=== PATIENT | male | born 1945 | race Caucasian/White ===

== ENCOUNTER 2016-07-10 18:00 | Emergency (ER) | payer OTHER, MEDICARE, BC ==
[2016-07-10] MEDS ORDERED: Diphtheria,Pertussis(Acell),Tetanus Vaccine 0.5 ML SDV inactive IM ONE (18:38)
[2016-07-10] MEDS ORDERED: Amoxicillin/Clavulanate K 875-125 MG Tab PO ONE (18:38)
--- NOTE | 2016-07-10 18:53 | EDM.PDOC ---
ED HPI ANIMAL BITE - General Time Seen by Provider: 07/10/16 18:18 Chief Complaint: Bite:Animal, Insect Stated Complaint: DOG BITE TO RIGHT HAND Source of Information: Reports: Patient History Limitations: Reports: No limitations - History of Present Illness INITIAL COMMENTS - FREE TEXT/NARRATIVE: Patient is a 70-year-old male who presents to the ED complaining of a dog bite to the dorsal aspect of his right wrist. Patient states while walking through [place] a [place] bit him. Patient states this was unprovoked. The dog was on a leash with nitric acid concentrator operator present. Dogs nitric acid concentrator operator stated dog is up to date with vaccinations. Patient states dogs nitric acid concentrator operator left before getting appropriate information. Patient has minimal pain to right wrist. Small wound present. No puncture wounds present. Patient is not up to date with tetanus immunization. Onset of Symptoms: Reports: today, sudden Location: Reports: upper extremity, right Quality: Reports: Ache Severity: mild Place of Occurrence: other Context: Reports: unprovoked, approached animal Description of Animal: Reports: dog, well appearing, immunized (unknown) Associated Symptoms: no other symptoms Treatments PHYS THER: Reports: Other (see below) (none stated) Right Hand Pain Sore (Numeric/FACES): 3 - Related Data Allergies Allergy/AdvReac Type Severity Reaction Status Date / Time No Known Allergies Allergy Verified 09/13/13 17:13 Home Meds: Home Meds Cephalexin [Keflex] 500 mg PO Q6HR #40 capsule 09/13/13 [Rx] Amoxicillin/Clavulanate K [Augmentin 875 MG/125 MG] 1 tab PO Q12HR #14 tablet [Rx] Aspirin [Halfprin] 81 mg PO DAILY 07/10/16 [History] Clopidogrel [Plavix] 75 mg PO DAILY 07/10/16 [History] Cyanocobalamin (Vitamin B12) [Vitamin B12] 1,000 mcg PO DAILY 07/10/16 [History] Detemir 16 units INJECT BEDTIME 07/10/16 [History] HCTZ/Triamterene [Dyazide 25-37.5 MG] 1 tab PO DAILY 07/10/16 [History] Meloxicam [Mobic] 15 mg PO DAILY 07/10/16 [History] Pravastatin [Pravachol] 40 mg PO DAILY 07/10/16 [History] Zzmelatonin 1 mg PO BEDTIME 07/10/16 [History] amLODIPine [Norvasc] 10 mg PO DAILY 07/10/16 [History] traZODone 100 mg PO BEDTIME 07/10/16 [History] Social & Family History - Tobacco Use Years of Tobacco use: 55 - Alcohol Use Days Per Week of Alcohol Use: 0 - Recreational Drug Use Recreational Drug Use: No ED ROS GENERAL - Review of Systems Review Of Systems: See Below Musculoskeletal: Reports: other (wrist/hand abrasion (bite wound). mild swelling present. ) Neurological: Denies: Numbness, Tingling ED EXAM, ANIMAL BITE - Physical Exam Exam: See Below Exam Limited By: No limitations General Appearance: alert, WD/WN, no apparent distress Ears: hearing grossly normal Throat/Mouth: Normal voice, No airway compromise Neck: supple Respiratory/Chest: no respiratory distress, no accessory muscle use Cardiovascular: normal peripheral pulses, regular rate, rhythm Peripheral Pulses: 2+: radial (R) Extremities: other (Right wrist: Small superficial bite wound to the right dorsal aspect of the wrist with minimal swelling and pain. No bleeding present. No pain with flexion extension of the wrist. No sensory deficits noted distally.) Neurological: alert, oriented, CN II-XII intact, normal cognition, no motor/ sensory deficits Psychiatric: normal affect, normal mood Skin Exam: Normal color, Warm/dry Course - Vital Signs Last Recorded V/S: Last Vital Signs Temp 97.7 F 07/10/16 18:00 Pulse 70 07/10/16 18:00 Resp 20 07/10/16 18:00 BP 160/85 H 07/10/16 18:00 Pulse Ox 100 07/10/16 18:00 - Orders/Labs/Meds Orders: Active Orders 24 hr Category Date Time Status Vaccines to be Administered [RC] PER UNIT ROUTINE Care 07/10/16 18:39 Active Meds: Medications Discontinued Medications Generic Name Dose Route Start Last Admin Trade Name Willianq PRN Reason Stop Dose Admin Amoxicillin/Clavulanate Potassium 1 tab 07/10/16 18:38 07/10/16 18:49 Augmentin 875 Mg/125 Mg PO 07/10/16 18:39 1 tab ONETIME ONE Administration Diphtheria/Tetanus/Acell Pertussis 0.5 ml 07/10/16 18:38 07/10/16 18:50 Boostrix IM 07/10/16 18:39 0.5 ml .ONCE ONE Administration - Re-Assessments/Exams Free Text/Narrative Re-Assessment/Exam: Ordered augmentin and boostrix. 07/10/16 19:25 Patient was unable to obtain information on the vaccination status of the dog that bit him. He has elected to hold off on starting the rabies vaccinations. There is a low likelihood that this dog has rabies but status is indeterminate at this time. Patient states law enforcement and [employer] are looking through store surveillance records to see if they can obtain a license plate number and then determined who the nitric acid concentrator operator is and determine vaccination status of dog. They will be looking at this tomorrow. I instructed the patient to follow up with his PCP as soon as possible if rabies status cannot be determined. Patient understands and is well aware of this. He was provided basic information on rabies. Antibiotic prescription provided. Departure - Departure Time of Disposition: 19:29 Disposition: Home, Self-Care 01 Condition: good Clinical Impression: Dog bite of hand Qualifiers: Encounter type: initial encounter Laterality: right Qualified Code(s): S61.451A - Open bite of right hand, initial encounter Prescriptions: Amoxicillin/Clavulanate K [Augmentin 875 MG/125 MG] 1 tab PO Q12HR #14 tablet Instructions: Animal Bite, [id number] Referrals: Kishan Bullock MD [Primary Care Provider] - Forms: ED Department Discharge Additional Instructions: Cleanse site twice daily with soap and water Pat dry and reapply plan about equipment. Take the full course of antibiotic as prescribed. Utilize ibuprofen and Tylenol and alternate fashion for pain. Followup with your primary care provider or ER as soon as possible if you are unable to determine rabies vacination status. Return to the E.D. for increased swelling, redness, or purulent drainage. - My Orders Last 24 Hours: My Active Orders 07/10/16 18:39 Vaccines to be Administered [RC] PER UNIT ROUTINE - Assessment/Plan Last 24 Hours: My Active Orders 07/10/16 18:39 Vaccines to be Administered [RC] PER UNIT ROUTINE
[2016-07-10 19:18] VITALS: BP 160/85
== END 2016-07-10 20:00 | disposition home or self-care (01) ==
LOC: JD.ED 18:00
DX: S61.451A Open bite of right hand, initial encounter (principal); Z23 Encounter for immunization; Z79.899 Other long term (current) drug therapy; Z79.82 Long term (current) use of aspirin; W54.0XXA Bitten by dog, initial encounter
CPT/HCPCS: 90471; 99283; A9270; 90715

== ENCOUNTER 2016-07-23 17:44 | Emergency (ER) | payer OTHER, MEDICARE, BC ==
[2016-07-23 18:04] VITALS: BP 197/139
--- NOTE | 2016-07-23 18:13 | EDM.PDOC ---
<Leda Arora - Last Filed: 07/23/16 19:55> ED HPI Skin/Rash - General Chief Complaint: Bite:Animal, Insect Stated Complaint: RABIES SHOT Time Seen by Provider: 07/23/16 18:01 - Related Data Allergies Allergy/AdvReac Type Severity Reaction Status Date / Time No Known Allergies Allergy Verified 09/13/13 17:13 Home Meds: Ambulatory Orders Medication Instructions Recorded Confirmed Amoxicillin/Clavulanate K 1 tab PO Q12HR #14 tablet 07/10/16 07/23/16 [Augmentin 875 MG/125 MG] Aspirin [Halfprin] 81 mg PO DAILY 07/10/16 07/23/16 Clopidogrel [Plavix] 75 mg PO DAILY 07/10/16 07/23/16 Cyanocobalamin (Vitamin B12) 1,000 mcg PO DAILY 07/10/16 07/23/16 [Vitamin B12] Detemir 16 units INJECT BEDTIME 07/10/16 07/23/16 HCTZ/Triamterene [Dyazide 25-37.5 1 tab PO DAILY 07/10/16 07/23/16 MG] Meloxicam [Mobic] 15 mg PO DAILY 07/10/16 07/23/16 Pravastatin [Pravachol] 40 mg PO DAILY 07/10/16 07/23/16 Zzmelatonin 1 mg PO BEDTIME 07/10/16 07/23/16 amLODIPine [Norvasc] 10 mg PO DAILY 07/10/16 07/23/16 traZODone 100 mg PO BEDTIME 07/10/16 07/23/16 Course - Vital Signs Last Recorded V/S: Last Vital Signs Temp 36.7 C 07/23/16 18:03 Pulse 60 07/23/16 18:03 Resp 20 07/23/16 18:03 BP 197/139 H 07/23/16 18:03 Pulse Ox 98 07/23/16 18:03 - Orders/Labs/Meds Meds: Medications Discontinued Medications Generic Name Dose Route Start Last Admin Trade Name Freq PRN Reason Stop Dose Admin Rabies Immune Globulin 1,800 unit 07/23/16 18:15 07/23/16 19:15 Imogam Rabies-Ht IM 07/23/16 18:16 1,800 unit .ONCE ONE Administration Rabies Vaccine Human Diploid Cell 2.5 unit 07/23/16 18:21 07/23/16 18:42 Imovax Rabies IM 07/23/16 18:22 2.5 unit .ONCE ONE Administration - Re-Assessments/Exams Free Text/Narrative Re-Assessment/Exam: 07/23/16 19:55 The patient reported that is weight is significantly less without his clothes. Patient was stripped to his pants and his weight 178.2. With 20units/kg the patient is to get 1616 units. He was given this and tolerated this well. I checked the patient about 20 minutes after receiving the immunoglobin and he has had no adverse reactions. Will discharge home. Departure - Departure Disposition: Home, Self-Care 01 Clinical Impression: Contact with and suspected exposure to rabies Instructions: Animal Bite, [id number], Rabies Referrals: PCP,None [Ordering Only Provider] - Forms: ED Department Discharge Additional Instructions: Rabies vaccination and immunoglobulin were administered in the emergency room today as instructed to do so by public health Department after potential dog bite and exposure to rabies. You'll need to return to the hospital for outpatient injection of rabies vaccine IM one shot on July 26 july 30 and August 06 ie. 4 shots in total. The rabies immunoglobulin provide passive immunity immediately to the virus in the rabies vaccine allow her body to develop antibodies hopefully for many years against the rabies virus. SPECT soreness at the site similar to a tetanus shot. It's okay to use Motrin or Tylenol for pain relief if needed. <Billy Sagastume - Last Filed: 07/25/16 19:22> ED HPI Skin/Rash - General Source: Reports: Patient History Limitations: Reports: No limitations - History of Present Illness INITIAL COMMENTS - FREE TEXT/NARRATIVE: 70-year-old male reports that he was bitten by has an unknown dog on his right dorsal wrist on 10 July. He was seen in the ED where his wounds were cleansed and he did have active bleeding from a puncture wound dorsal aspect of his right wrist. Was a grade gained dog that bit him while he was walking down the [employer] store here in [place]. The great Gilbert was on a leash .Patient reports that he probably smells like turkey since he had just finished eating buffalo jerkey from [employer]. At any rate he asked the dog stereoplotter operator who is up- to-date on shots he said it wasn't a way they went. He is not able to trace the fellow that on the dog or find a job to confirm that the dog has had his rabies vaccination. He got a call from [facility] [employer] today indicating from the public health Department that he should seek rabies vaccination. Of note it is day 13 post bite. His tetanus and diphtheria and pertussis vaccine was updated when he was seen in the ED on 10 July. Patient's wounds have healed well. Symptom Onset Date: 07/10/16 Location, Skin: Reports: upper extremity, right (Right dorsal wrist.) Quality: Reports: Other (Wound is healed well.) Severity: mild Known Identified Source: yes (Dog bite) Place of Occurrence: other ([employer] store) Sick Contact: no Associated Symptoms: Reports: no other symptoms Similar Symptoms Previously: no Recent Medical Care: yes (Was seen in the ED same day of tongue bite.) Past Medical History HEENT History: Reports: Other (see below) Other HEENT History: eye surgery Cardiovascular History: Reports: High cholesterol, Hypertension, Stents - Past Surgical History HEENT Surgical History: Reports: Tonsillectomy GI Surgical History: Reports: Cholecystectomy Social & Family History - Tobacco Use Smoking Status *Q: Current Every Day Smoker Years of Tobacco use: 55 Packs/Tins Daily: 0.7 - Caffeine Use Caffeine Use: Reports: Coffee - Alcohol Use Days Per Week of Alcohol Use: 0 - Recreational Drug Use Recreational Drug Use: No - Living Situation & Occupation Living situation: Reports: Occupation: employed ED ROS GENERAL - Review of Systems Review Of Systems: See Below Constitutional: Denies: fever, chills, malaise, weakness, fatigue, decreased appetite, weight loss HEENT: Reports: No symptoms Respiratory: Reports: No Symptoms Cardiovascular: Reports: No symptoms Endocrine: Reports: no symptoms GI/Abdominal: Reports: No symptoms : Reports: no symptoms Musculoskeletal: Reports: no symptoms Skin: Reports: bruising ED EXAM, SKIN/RASH Exam: See Below Exam Limited By: No limitations General Appearance: alert, WD/WN, anxious, mild distress Extremities: other (Patient does have healing wounds dorsal aspect of his right wrist. No evidence of infection.) Course - Vital Signs Last Recorded V/S: Last Vital Signs Temp 36.7 C 07/23/16 18:03 Pulse 60 07/23/16 18:03 Resp 20 07/23/16 18:03 BP 197/139 H 07/23/16 18:03 Pulse Ox 98 07/23/16 18:03 - Orders/Labs/Meds Meds: Medications Discontinued Medications Generic Name Dose Route Start Last Admin Trade Name Juan Pablo PRN Reason Stop Dose Admin Rabies Immune Globulin 1,800 unit 07/23/16 18:15 07/23/16 19:15 Imogam Rabies-Ht IM 07/23/16 18:16 1,800 unit .ONCE ONE Administration Rabies Vaccine Human Diploid Cell 2.5 unit 07/23/16 18:21 07/23/16 18:42 Imovax Rabies IM 07/23/16 18:22 2.5 unit .ONCE ONE Administration - Radiology Interpretation Free Text/Narrative:: 70-year-old male presents the ED for rabies vaccination as requested by [facility]. He been calling them for some lengthy period of time and it was decided today he got phone call that he should seek vaccination because they were unable to locate the dog bit him to confirm whether or not it had had rabies vaccination. His gait 13 since he was bit. We'll therefore proceed with rate. Rabies immunoglobulin in the dosage of 1800 mg will be given. No more than 1.5 mils per injection site. Also received first rabies vaccination 2.5 units IM. He require further shots on days 3,7 and 14 starting today. He will return therefore as an outpatient on July 26 July 30 and August 06 for further rabies vaccine 2.5 units IM. Departure - Departure Time of Disposition: 19:30 Condition: good
[2016-07-23] MEDS ORDERED: Rabies Immune Globulin PF 150 Units/ML 2 ML SDV IM ONE (18:15)
[2016-07-23] MEDS ORDERED: Rabies Vaccine, Human Diploid Cell PF 2.5 Unit SDV IM ONE (18:21)
== END 2016-07-23 19:50 | disposition home or self-care (01) ==
LOC: JD.ED 17:44 → SUPCPDRO 17:44 → JD.ED 19:50
DX: Z20.3 Contact with and (suspected) exposure to rabies (principal); I10 Essential (primary) hypertension; E78.00 Pure hypercholesterolemia, unspecified; Z79.02 Long term (current) use of antithrombotics/antiplatelets; Z79.82 Long term (current) use of aspirin; Z79.899 Other long term (current) drug therapy; F17.210 Nicotine dependence, cigarettes, uncomplicated; Z90.49 Acquired absence of other specified parts of digestive tract; Z98.890 Other specified postprocedural states; Z23 Encounter for immunization
CPT/HCPCS: 90376; 90675; 96372; 99281; 99283-25

== ENCOUNTER 2020-03-15 15:01 | Inpatient (IN) | payer MEDICARE, OTHER ==
[2020-03-15] MEDS ORDERED: Sodium Chloride 0.9% 10 ML Syringe FLUSH PRN (15:26)
--- NOTE | 2020-03-15 15:53 | EDM.PDOC ---
ED HPI GENERAL MEDICAL PROBLEM - General Chief Complaint: Genitourinary Problem Stated Complaint: URINE ISSUES SENT FROM [facility] Time Seen by Provider: 03/15/20 15:05 Source of Information: Reports: Patient, RN Notes Reviewed History Limitations: Reports: No Limitations - History of Present Illness INITIAL COMMENTS - FREE TEXT/NARRATIVE: Patient is a 74-year-old male presenting to the emergency department after being sent here from the [place] [facility]. He was seen there today with complaints of frequency of urination and "dribbling ". He states for last few days, he has go to the bathroom every 15 minutes and will goes a very small amount. He has no pain or pressure associated with this. On triage, he was bladder scanned and found to have over 1300 mils of urine in his bladder. He did have blood work completed at [facility] which shows a glucose of 472, BUN of 47, creatinine of 3.1 as well as a potassium of 5.4. Urinalysis completed at the clinic does show he has a urinary tract infection. Patient states that he was recently taken off of his Levemir because he does not like needles. He is currently taking Farxiga and Nesina. He does not check his blood sugars at home. Denies any fever, chills, nausea, or vomiting. States he feels "really good ". Penis Pain Score (Numeric/FACES): 8 - Related Data Allergies Allergy/AdvReac Type Severity Reaction Status Date / Time shrimp Allergy Cannot Verified 03/15/20 15:17 Remember Home Meds: Home Meds Aspirin [Halfprin] 81 mg PO DAILY 07/10/16 [History] Clopidogrel [Plavix] 75 mg PO BEDTIME 07/10/16 [History] Pravastatin [Pravachol] 40 mg PO DAILY 07/10/16 [History] amLODIPine [Norvasc] 10 mg PO DAILY 07/10/16 [History] traZODone 100 mg PO BEDTIME 07/10/16 [History] Alogliptin Benzoate [Alogliptin] 25 mg PO DAILY 03/15/20 [History] Lisinopril/Hydrochlorothiazide [Lisinopril-Hctz 20-25 mg Tab] 1 each PO DAILY 03/15/20 [History] Metoprolol Succinate [Toprol XL 100mg] 50 mg PO DAILY 03/15/20 [History] Tamsulosin [Tamsulosin 24 Hr] 0.4 mg PO DAILY 03/15/20 [History] Past Medical History HEENT History: Reports: Other (See Below) Other HEENT History: eye surgery Cardiovascular History: Reports: High Cholesterol, Hypertension, Stents - Past Surgical History HEENT Surgical History: Reports: Tonsillectomy GI Surgical History: Reports: Cholecystectomy Social & Family History - Tobacco Use Tobacco Use Status *Q: Current Every Day Tobacco User Years of Tobacco use: 60 Packs/Tins Daily: 0.5 - Caffeine Use Caffeine Use: Reports: None - Recreational Drug Use Recreational Drug Use: No - Living Situation & Occupation Living situation: Reports: Occupation: Employed ED ROS GENERAL - Review of Systems Review Of Systems: See Below Constitutional: Reports: No Symptoms. Denies: Fever, Chills, Weakness, Fatigue ED EXAM, RENAL/ - Physical Exam Exam: See Below General Appearance: Alert, WD/WN, No Apparent Distress Respiratory/Chest: No Respiratory Distress, Lungs Clear, Normal Breath Sounds, No Accessory Muscle Use, Chest Non-Tender Cardiovascular: Normal Peripheral Pulses, Regular Rate, Rhythm, No Edema, No Gallop, No JVD, No Murmur, No Rub GI/Abdominal: Normal Bowel Sounds, Soft, Non-Tender, No Organomegaly, No Distention, No Abnormal Bruit, No Mass Neurological: Alert, Oriented, CN II-XII Intact, Normal Cognition, Normal Gait, Normal Reflexes, No Motor/Sensory Deficits Psychiatric: Normal Affect, Normal Mood Skin Exam: Warm, Dry, Intact, Normal Color, No Rash Course - Vital Signs Last Recorded V/S: Last Vital Signs Temp 98.8 F 03/19/20 08:32 Pulse 70 03/19/20 08:36 Resp 16 03/19/20 08:32 BP 147/97 H 03/19/20 08:36 Pulse Ox 96 03/19/20 08:32 - Orders/Labs/Meds Orders: Medication Orders Acetaminophen (Tylenol) 650 mg PO Q4H PRN PRN Reason: Pain (Mild 1-3)/fever Last Admin: 03/16/20 07:52 Dose: 650 mg Documented by: Admin: 03/16/20 02:27 Dose: 650 mg Documented by: AMARILYS Alogliptin Benzoate (Alogliptin) 12.5 mg PO DAILY [facility] Last Admin: 03/19/20 08:36 Dose: 12.5 mg Documented by: Admin: 03/18/20 08:25 Dose: 12.5 mg Documented by: LIZZ Amlodipine Besylate (Norvasc) 10 mg PO DAILY [facility] Last Admin: 03/19/20 08:36 Dose: 10 mg Documented by: Admin: 03/18/20 08:26 Dose: 10 mg Documented by: LIZZ Aspirin (Halfprin) 81 mg PO DAILY [facility] Last Admin: 03/19/20 08:36 Dose: 81 mg Documented by: Admin: 03/18/20 08:30 Dose: 81 mg Documented by: Admin: 03/17/20 09:05 Dose: 81 mg Documented by: Admin: 03/16/20 08:55 Dose: 81 mg Documented by: CHACORTA Clopidogrel Bisulfate (Plavix) 75 mg PO DAILY [facility] Admin: 03/19/20 08:36 Dose: 75 mg Documented by: Admin: 03/18/20 08:30 Dose: 75 mg Documented by: LIZZ Docusate Sodium (Colace) 100 mg PO BID PRN PRN Reason: Constipation Finasteride (Proscar) 5 mg PO BEDTIME [facility] Admin: 03/18/20 21:24 Dose: 5 mg Documented by: Admin: 03/17/20 21:05 Dose: 5 mg Documented by: Admin: 03/16/20 20:39 Dose: 5 mg Documented by: Admin: 03/15/20 21:20 Dose: 5 mg Documented by: AMARILYS Heparin Sodium (Porcine) (Heparin Sodium) 5,000 units SUBCUT Q8H [facility] Last Admin: 03/19/20 06:26 Dose: 5,000 units Documented by: Admin: 03/18/20 21:23 Dose: 5,000 units Documented by: Admin: 03/18/20 13:10 Dose: 5,000 units Documented by: Admin: 03/18/20 06:37 Dose: 5,000 units Documented by: Admin: 03/17/20 21:35 Dose: 5,000 units Documented by: Admin: 03/17/20 14:30 Dose: 5,000 units Documented by: Admin: 03/17/20 06:11 Dose: 5,000 units Documented by: Admin: 03/16/20 20:59 Dose: 5,000 units Documented by: Admin: 03/16/20 13:45 Dose: 5,000 units Documented by: Admin: 03/16/20 05:50 Dose: 5,000 units Documented by: Admin: 03/15/20 21:32 Dose: 5,000 units Documented by: AMARILYS Hydrochlorothiazide (Hydrochlorothiazide) 25 mg PO DAILY [facility] Last Admin: 03/19/20 08:35 Dose: 25 mg Documented by: Admin: 03/18/20 08:29 Dose: 25 mg Documented by: LIZZ Vancomycin HCl 1 gm/Vancomycin HCl 250 mg/ Sodium Chloride 250 mls @ 166.667 mls/hr IV Q24H [facility] Last Admin: 03/19/20 11:34 Dose: 166.667 mls/hr Documented by: JANES Insulin Glargine (Lantus) 15 unit SUBCUT BEDTIME [facility] Last Admin: 03/18/20 21:22 Dose: 15 unit Documented by: Admin: 03/17/20 21:06 Dose: 15 unit Documented by: TANYA Insulin Human Lispro (Humalog) 0 unit SUBCUT TIDAC [facility]; Protocol Last Admin: 03/19/20 06:26 Dose: Not Given Documented by: Admin: 03/18/20 17:22 Dose: Not Given Documented by: Admin: 03/18/20 11:58 Dose: 4 units Documented by: Admin: 03/18/20 08:24 Dose: 6 units Documented by: Admin: 03/17/20 17:46 Dose: 2 units Documented by: Admin: 03/17/20 11:44 Dose: 8 units Documented by: Admin: 03/17/20 09:06 Dose: 4 units Documented by: LIZZ Insulin Human Lispro (Humalog) 5 unit SUBCUT TIDAC [facility] Last Admin: 03/19/20 08:34 Dose: 5 units Documented by: Admin: 03/18/20 17:21 Dose: 5 units Documented by: Admin: 03/18/20 11:59 Dose: 5 units Documented by: Admin: 03/18/20 08:24 Dose: 5 units Documented by: Admin: 03/17/20 17:47 Dose: 5 units Documented by: LIZZ Lisinopril (Prinivil) 20 mg PO DAILY [facility] Last Admin: 03/19/20 08:35 Dose: 20 mg Documented by: Admin: 03/18/20 08:30 Dose: 20 mg Documented by: LIZZ Metoprolol Succinate (Toprol Xl) 50 mg PO DAILY [facility] Last Admin: 03/19/20 08:36 Dose: 50 mg Documented by: Admin: 03/18/20 08:29 Dose: 50 mg Documented by: LIZZ Miscellaneous Information (Remove Patch) 1 ea TRDERM DAILY [facility] Last Admin: 03/19/20 09:43 Dose: Not Given Documented by: Admin: 03/18/20 08:31 Dose: Not Given Documented by: Admin: 03/17/20 09:12 Dose: Not Given Documented by: Admin: 03/16/20 09:00 Dose: 1 ea Documented by: CHACORTA Nicotine (Habitrol) 21 mg TRDERM DAILY [facility] Last Admin: 03/19/20 08:37 Dose: Not Given Documented by: Admin: 03/18/20 08:31 Dose: Not Given Documented by: Admin: 03/17/20 09:10 Dose: Not Given Documented by: Admin: 03/16/20 09:00 Dose: Not Given Documented by: Admin: 03/15/20 21:37 Dose: 21 mg Documented by: AMARILYS Ondansetron HCl (Zofran Odt) 4 mg PO Q4H PRN PRN Reason: nausea, able to take PO Oxycodone HCl (Oxycodone) 5 mg PO Q4H PRN PRN Reason: Pain (moderate 4-6) Last Admin: 03/18/20 21:24 Dose: 5 mg Documented by: Admin: 03/18/20 17:32 Dose: 5 mg Documented by: Admin: 03/16/20 07:54 Dose: 5 mg Documented by: Admin: 03/16/20 02:26 Dose: 5 mg Documented by: Admin: 03/15/20 21:18 Dose: 5 mg Documented by: AMARILYS Simvastatin (Zocor) 20 mg PO DAILY [facility] Last Admin: 03/19/20 08:35 Dose: 20 mg Documented by: Admin: 03/18/20 08:30 Dose: 20 mg Documented by: LIZZ Sodium Chloride (Saline Flush) 10 ml FLUSH ASDIRECTED PRN PRN Reason: Keep Vein Open Last Admin: 03/15/20 16:40 Dose: 10 ml Documented by: ASHLEY Tamsulosin HCl (Flomax) 0.4 mg PO DAILY [facility] Last Admin: 03/19/20 08:36 Dose: 0.4 mg Documented by: Admin: 03/18/20 08:26 Dose: 0.4 mg Documented by: LIZZ Trazodone HCl (Trazodone) 100 mg PO BEDTIME [facility] Last Admin: 03/18/20 21:23 Dose: 100 mg Documented by: Admin: 03/17/20 21:06 Dose: 100 mg Documented by: TANYA Vancomycin HCl (Pharmacy To Dose - Vancomycin) 1 dose .XX ASDIRECTED PRN PRN Reason: RX TO DOSE VANCO Labs: Laboratory Tests 03/15/20 03/15/20 03/15/20 Range/Units 15:20 15:56 16:04 WBC 6.21 (4.23-9.07) K/mm3 RBC 3.91 L (4.63-6.08) M/mm3 Hgb 12.2 L (13.7-17.5) gm/dl Hct 36.4 L (40.1-51.0) % MCV 93.1 H (79.0-92.2) fl MCH 31.2 (25.7-32.2) pg MCHC 33.5 (32.2-35.5) g/dl RDW Std Deviation 43.6 (35.1-43.9) fL Plt Count 263 (163-337) K/mm3 MPV 10.1 (9.4-12.3) fl Neut % (Auto) 51.4 (34.0-67.9) % Lymph % (Auto) 26.1 (21.8-53.1) % Bowie % (Auto) 21.7 H (5.3-12.2) % Eos % (Auto) 0.2 L (0.8-7.0) Baso % (Auto) 0.3 (0.1-1.2) % Neut # (Auto) 3.19 (1.78-5.38) K/mm3 Lymph # (Auto) 1.62 (1.32-3.57) K/mm3 Bowie # (Auto) 1.35 H (0.30-0.82) K/mm3 Eos # (Auto) 0.01 L (0.04-0.54) K/mm3 Baso # (Auto) 0.02 (0.01-0.08) K/mm3 Manual Slide Review Abnormal smear Sodium (136-145) mEq/L Potassium (3.5-5.1) mEq/L Chloride (98-107) mEq/L Carbon Dioxide (21-32) mEq/L Anion Gap (5-15) BUN (7-18) mg/dL Creatinine (0.7-1.3) mg/dL Est Cr Clr Drug Dosing mL/min Estimated GFR (MDRD) (>60) mL/min BUN/Creatinine Ratio (14-18) Glucose (83-115) mg/dL POC Glucose (83-110) mg/dL Hemoglobin A1c (4.50-6.20) % Calcium (8.5-10.1) mg/dL Magnesium (1.8-2.4) mg/dl Total Bilirubin (0.2-1.0) mg/dL AST (15-37) U/L ALT (16-63) U/L Alkaline Phosphatase (46-116) U/L C-Reactive Protein (<1.0) mg/dL Total Protein (6.4-8.2) g/dl Albumin (3.4-5.0) g/dl Globulin gm/dL Albumin/Globulin Ratio (1-2) Procalcitonin ng/mL Urine Color Yellow (Yellow) Urine Appearance Cloudy H (Clear) Urine pH 6.0 (5.0-8.0) Ur Specific [place] 1.025 (1.005-1.030) Urine Protein 3+ H (Negative) Urine Glucose (UA) 2+ H (Negative) Urine Ketones Negative (Negative) Urine Occult Blood 2+ H (Negative) Urine Nitrite Negative (Negative) Urine Bilirubin Negative (Negative) Urine Urobilinogen 0.2 (0.2-1.0) Ur Leukocyte Esterase 2+ H (Negative) Urine RBC 0-5 (0-5) /hpf Urine WBC Too numerous to cnt H (0-5) /hpf Urine WBC Clumps Few (NOT SEEN) /hpf Ur Epithelial Cells Not seen (0-5) /hpf Urine Bacteria Many H (FEW) /hpf Urine Mucus Not seen (FEW) /hpf SARS-CoV-2 RNA (AI) Negative (NEGATIVE) 03/15/20 03/15/20 03/15/20 Range/Units 16:04 16:04 18:43 WBC (4.23-9.07) K/mm3 RBC (4.63-6.08) M/mm3 Hgb (13.7-17.5) gm/dl Hct (40.1-51.0) % MCV (79.0-92.2) fl MCH (25.7-32.2) pg MCHC (32.2-35.5) g/dl RDW Std Deviation (35.1-43.9) fL Plt Count (163-337) K/mm3 MPV (9.4-12.3) fl Neut % (Auto) (34.0-67.9) % Lymph % (Auto) (21.8-53.1) % Bowie % (Auto) (5.3-12.2) % Eos % (Auto) (0.8-7.0) Baso % (Auto) (0.1-1.2) % Neut # (Auto) (1.78-5.38) K/mm3 Lymph # (Auto) (1.32-3.57) K/mm3 Bowie # (Auto) (0.30-0.82) K/mm3 Eos # (Auto) (0.04-0.54) K/mm3 Baso # (Auto) (0.01-0.08) K/mm3 Manual Slide Review Sodium 129 L (136-145) mEq/L Potassium 4.6 (3.5-5.1) mEq/L Chloride 95 L (98-107) mEq/L Carbon Dioxide 20 L (21-32) mEq/L Anion Gap 18.6 H (5-15) BUN 45 H (7-18) mg/dL Creatinine 3.0 H (0.7-1.3) mg/dL Est Cr Clr Drug Dosing 18.90 mL/min Estimated GFR (MDRD) 20 (>60) mL/min BUN/Creatinine Ratio 15.0 (14-18) Glucose 416 H (83-115) mg/dL POC Glucose 363 H (83-110) mg/dL Hemoglobin A1c 12.20 H (4.50-6.20) % Calcium 9.9 (8.5-10.1) mg/dL Magnesium (1.8-2.4) mg/dl Total Bilirubin 0.9 (0.2-1.0) mg/dL AST 7 L (15-37) U/L ALT 15 L (16-63) U/L Alkaline Phosphatase 74 (46-116) U/L C-Reactive Protein 14.7 H* (<1.0) mg/dL Total Protein 7.6 (6.4-8.2) g/dl Albumin 3.6 (3.4-5.0) g/dl Globulin 4.0 gm/dL Albumin/Globulin Ratio 0.9 L (1-2) Procalcitonin ng/mL Urine Color (Yellow) Urine Appearance (Clear) Urine pH (5.0-8.0) Ur Specific [place] (1.005-1.030) Urine Protein (Negative) Urine Glucose (UA) (Negative) Urine Ketones (Negative) Urine Occult Blood (Negative) Urine Nitrite (Negative) Urine Bilirubin (Negative) Urine Urobilinogen (0.2-1.0) Ur Leukocyte Esterase (Negative) Urine RBC (0-5) /hpf Urine WBC (0-5) /hpf Urine WBC Clumps (NOT SEEN) /hpf Ur Epithelial Cells (0-5) /hpf Urine Bacteria (FEW) /hpf Urine Mucus (FEW) /hpf SARS-CoV-2 RNA (AI) (NEGATIVE) 03/15/20 03/16/20 03/16/20 Range/Units 21:22 04:10 04:10 WBC 8.61 (4.23-9.07) K/mm3 RBC 3.72 L (4.63-6.08) M/mm3 Hgb 11.7 L (13.7-17.5) gm/dl Hct 34.6 L (40.1-51.0) % MCV 93.0 H (79.0-92.2) fl MCH 31.5 (25.7-32.2) pg MCHC 33.8 (32.2-35.5) g/dl RDW Std Deviation 43.2 (35.1-43.9) fL Plt Count 273 (163-337) K/mm3 MPV 10.2 (9.4-12.3) fl Neut % (Auto) 60.3 (34.0-67.9) % Lymph % (Auto) 21.1 L (21.8-53.1) % Bowie % (Auto) 17.9 H (5.3-12.2) % Eos % (Auto) 0.3 L (0.8-7.0) Baso % (Auto) 0.2 (0.1-1.2) % Neut # (Auto) 5.18 (1.78-5.38) K/mm3 Lymph # (Auto) 1.82 (1.32-3.57) K/mm3 Bowie # (Auto) 1.54 H (0.30-0.82) K/mm3 Eos # (Auto) 0.03 L (0.04-0.54) K/mm3 Baso # (Auto) 0.02 (0.01-0.08) K/mm3 Manual Slide Review Abnormal smear Sodium 135 L (136-145) mEq/L Potassium 4.3 (3.5-5.1) mEq/L Chloride 103 (98-107) mEq/L Carbon Dioxide 20 L (21-32) mEq/L Anion Gap 16.3 H (5-15) BUN 42 H (7-18) mg/dL Creatinine 2.5 H (0.7-1.3) mg/dL Est Cr Clr Drug Dosing 22.68 mL/min Estimated GFR (MDRD) 25 (>60) mL/min BUN/Creatinine Ratio 16.8 (14-18) Glucose 135 H (83-115) mg/dL POC Glucose 307 H (83-110) mg/dL Hemoglobin A1c (4.50-6.20) % Calcium 9.0 (8.5-10.1) mg/dL Magnesium 1.6 L (1.8-2.4) mg/dl Total Bilirubin 0.4 (0.2-1.0) mg/dL AST 9 L (15-37) U/L ALT 12 L (16-63) U/L Alkaline Phosphatase 64 (46-116) U/L C-Reactive Protein 10.7 H* (<1.0) mg/dL Total Protein 6.6 (6.4-8.2) g/dl Albumin 3.0 L (3.4-5.0) g/dl Globulin 3.6 gm/dL Albumin/Globulin Ratio 0.8 L (1-2) Procalcitonin ng/mL Urine Color (Yellow) Urine Appearance (Clear) Urine pH (5.0-8.0) Ur Specific [place] (1.005-1.030) Urine Protein (Negative) Urine Glucose (UA) (Negative) Urine Ketones (Negative) Urine Occult Blood (Negative) Urine Nitrite (Negative) Urine Bilirubin (Negative) Urine Urobilinogen (0.2-1.0) Ur Leukocyte Esterase (Negative) Urine RBC (0-5) /hpf Urine WBC (0-5) /hpf Urine WBC Clumps (NOT SEEN) /hpf Ur Epithelial Cells (0-5) /hpf Urine Bacteria (FEW) /hpf Urine Mucus (FEW) /hpf SARS-CoV-2 RNA (AI) (NEGATIVE) 03/16/20 03/16/20 03/16/20 Range/Units 06:05 12:10 17:08 WBC (4.23-9.07) K/mm3 RBC (4.63-6.08) M/mm3 Hgb (13.7-17.5) gm/dl Hct (40.1-51.0) % MCV (79.0-92.2) fl MCH (25.7-32.2) pg MCHC (32.2-35.5) g/dl RDW Std Deviation (35.1-43.9) fL Plt Count (163-337) K/mm3 MPV (9.4-12.3) fl Neut % (Auto) (34.0-67.9) % Lymph % (Auto) (21.8-53.1) % Bowie % (Auto) (5.3-12.2) % Eos % (Auto) (0.8-7.0) Baso % (Auto) (0.1-1.2) % Neut # (Auto) (1.78-5.38) K/mm3 Lymph # (Auto) (1.32-3.57) K/mm3 Bowie # (Auto) (0.30-0.82) K/mm3 Eos # (Auto) (0.04-0.54) K/mm3 Baso # (Auto) (0.01-0.08) K/mm3 Manual Slide Review Sodium (136-145) mEq/L Potassium (3.5-5.1) mEq/L Chloride (98-107) mEq/L Carbon Dioxide (21-32) mEq/L Anion Gap (5-15) BUN (7-18) mg/dL Creatinine (0.7-1.3) mg/dL Est Cr Clr Drug Dosing mL/min Estimated GFR (MDRD) (>60) mL/min BUN/Creatinine Ratio (14-18) Glucose 430 H (83-115) mg/dL POC Glucose 176 H 132 H (83-110) mg/dL Hemoglobin A1c (4.50-6.20) % Calcium (8.5-10.1) mg/dL Magnesium (1.8-2.4) mg/dl Total Bilirubin (0.2-1.0) mg/dL AST (15-37) U/L ALT (16-63) U/L Alkaline Phosphatase (46-116) U/L C-Reactive Protein (<1.0) mg/dL Total Protein (6.4-8.2) g/dl Albumin (3.4-5.0) g/dl Globulin gm/dL Albumin/Globulin Ratio (1-2) Procalcitonin ng/mL Urine Color (Yellow) Urine Appearance (Clear) Urine pH (5.0-8.0) Ur Specific [place] (1.005-1.030) Urine Protein (Negative) Urine Glucose (UA) (Negative) Urine Ketones (Negative) Urine Occult Blood (Negative) Urine Nitrite (Negative) Urine Bilirubin (Negative) Urine Urobilinogen (0.2-1.0) Ur Leukocyte Esterase (Negative) Urine RBC (0-5) /hpf Urine WBC (0-5) /hpf Urine WBC Clumps (NOT SEEN) /hpf Ur Epithelial Cells (0-5) /hpf Urine Bacteria (FEW) /hpf Urine Mucus (FEW) /hpf SARS-CoV-2 RNA (AI) (NEGATIVE) 03/16/20 03/17/20 03/17/20 Range/Units 20:42 04:45 04:45 WBC 9.16 H (4.23-9.07) K/mm3 RBC 3.59 L (4.63-6.08) M/mm3 Hgb 11.5 L (13.7-17.5) gm/dl Hct 33.0 L (40.1-51.0) % MCV 91.9 (79.0-92.2) fl MCH 32.0 (25.7-32.2) pg MCHC 34.8 (32.2-35.5) g/dl RDW Std Deviation 43.6 (35.1-43.9) fL Plt Count 270 (163-337) K/mm3 MPV 10.6 (9.4-12.3) fl Neut % (Auto) 64.3 (34.0-67.9) % Lymph % (Auto) 21.6 L (21.8-53.1) % Bowie % (Auto) 12.6 H (5.3-12.2) % Eos % (Auto) 1.3 (0.8-7.0) Baso % (Auto) 0.2 (0.1-1.2) % Neut # (Auto) 5.89 H (1.78-5.38) K/mm3 Lymph # (Auto) 1.98 (1.32-3.57) K/mm3 Bowie # (Auto) 1.15 H (0.30-0.82) K/mm3 Eos # (Auto) 0.12 (0.04-0.54) K/mm3 Baso # (Auto) 0.02 (0.01-0.08) K/mm3 Manual Slide Review Sodium 136 (136-145) mEq/L Potassium 4.4 (3.5-5.1) mEq/L Chloride 105 (98-107) mEq/L Carbon Dioxide 18 L (21-32) mEq/L Anion Gap 17.4 H (5-15) BUN 28 H (7-18) mg/dL Creatinine 2.0 H (0.7-1.3) mg/dL Est Cr Clr Drug Dosing 28.36 mL/min Estimated GFR (MDRD) 33 (>60) mL/min BUN/Creatinine Ratio 14.0 (14-18) Glucose 202 H (83-115) mg/dL POC Glucose 173 H (83-110) mg/dL Hemoglobin A1c (4.50-6.20) % Calcium 9.2 (8.5-10.1) mg/dL Magnesium (1.8-2.4) mg/dl Total Bilirubin 0.5 (0.2-1.0) mg/dL AST 9 L (15-37) U/L ALT 14 L (16-63) U/L Alkaline Phosphatase 62 (46-116) U/L C-Reactive Protein (<1.0) mg/dL Total Protein 6.7 (6.4-8.2) g/dl Albumin 2.9 L (3.4-5.0) g/dl Globulin 3.8 gm/dL Albumin/Globulin Ratio 0.8 L (1-2) Procalcitonin ng/mL Urine Color (Yellow) Urine Appearance (Clear) Urine pH (5.0-8.0) Ur Specific [place] (1.005-1.030) Urine Protein (Negative) Urine Glucose (UA) (Negative) Urine Ketones (Negative) Urine Occult Blood (Negative) Urine Nitrite (Negative) Urine Bilirubin (Negative) Urine Urobilinogen (0.2-1.0) Ur Leukocyte Esterase (Negative) Urine RBC (0-5) /hpf Urine WBC (0-5) /hpf Urine WBC Clumps (NOT SEEN) /hpf Ur Epithelial Cells (0-5) /hpf Urine Bacteria (FEW) /hpf Urine Mucus (FEW) /hpf SARS-CoV-2 RNA (AI) (NEGATIVE) 03/17/20 03/17/20 Range/Units 04:45 06:14 WBC (4.23-9.07) K/mm3 RBC (4.63-6.08) M/mm3 Hgb (13.7-17.5) gm/dl Hct (40.1-51.0) % MCV (79.0-92.2) fl MCH (25.7-32.2) pg MCHC (32.2-35.5) g/dl RDW Std Deviation (35.1-43.9) fL Plt Count (163-337) K/mm3 MPV (9.4-12.3) fl Neut % (Auto) (34.0-67.9) % Lymph % (Auto) (21.8-53.1) % Bowie % (Auto) (5.3-12.2) % Eos % (Auto) (0.8-7.0) Baso % (Auto) (0.1-1.2) % Neut # (Auto) (1.78-5.38) K/mm3 Lymph # (Auto) (1.32-3.57) K/mm3 Bowie # (Auto) (0.30-0.82) K/mm3 Eos # (Auto) (0.04-0.54) K/mm3 Baso # (Auto) (0.01-0.08) K/mm3 Manual Slide Review Sodium (136-145) mEq/L Potassium (3.5-5.1) mEq/L Chloride (98-107) mEq/L Carbon Dioxide (21-32) mEq/L Anion Gap (5-15) BUN (7-18) mg/dL Creatinine (0.7-1.3) mg/dL Est Cr Clr Drug Dosing mL/min Estimated GFR (MDRD) (>60) mL/min BUN/Creatinine Ratio (14-18) Glucose (83-115) mg/dL POC Glucose 213 H (83-110) mg/dL Hemoglobin A1c (4.50-6.20) % Calcium (8.5-10.1) mg/dL Magnesium (1.8-2.4) mg/dl Total Bilirubin (0.2-1.0) mg/dL AST (15-37) U/L ALT (16-63) U/L Alkaline Phosphatase (46-116) U/L C-Reactive Protein (<1.0) mg/dL Total Protein (6.4-8.2) g/dl Albumin (3.4-5.0) g/dl Globulin gm/dL Albumin/Globulin Ratio (1-2) Procalcitonin 0.24 H ng/mL Urine Color (Yellow) Urine Appearance (Clear) Urine pH (5.0-8.0) Ur Specific [place] (1.005-1.030) Urine Protein (Negative) Urine Glucose (UA) (Negative) Urine Ketones (Negative) Urine Occult Blood (Negative) Urine Nitrite (Negative) Urine Bilirubin (Negative) Urine Urobilinogen (0.2-1.0) Ur Leukocyte Esterase (Negative) Urine RBC (0-5) /hpf Urine WBC (0-5) /hpf Urine WBC Clumps (NOT SEEN) /hpf Ur Epithelial Cells (0-5) /hpf Urine Bacteria (FEW) /hpf Urine Mucus (FEW) /hpf SARS-CoV-2 RNA (AI) (NEGATIVE) Meds: Medications Generic Name Dose Route Start Last Admin Trade Name Freq PRN Reason Stop Dose Admin Acetaminophen 650 mg 03/15/20 17:25 03/16/20 07:52 Tylenol PO 650 mg Q4H PRN Administration Pain (Mild 1-3)/fever Alogliptin Benzoate 12.5 mg 03/18/20 09:00 03/19/20 08:36 Alogliptin PO 12.5 mg DAILY ALISA Administration Amlodipine Besylate 10 mg 03/18/20 09:00 03/19/20 08:36 Norvasc PO 10 mg DAILY ALISA Administration Aspirin 81 mg 03/16/20 09:00 03/19/20 08:36 Halfprin PO 81 mg DAILY ALISA Administration Clopidogrel Bisulfate 75 mg 03/18/20 09:00 03/19/20 08:36 Plavix PO 75 mg DAILY ALISA Administration Docusate Sodium 100 mg 03/15/20 17:25 Colace PO BID PRN Constipation Finasteride 5 mg 03/15/20 21:00 03/18/20 21:24 Proscar PO 5 mg BEDTIME ALISA Administration Heparin Sodium (Porcine) 5,000 units 03/15/20 22:00 03/19/20 06:26 Heparin Sodium SUBCUT 5,000 units Q8H ALISA Administration Hydrochlorothiazide 25 mg 03/18/20 09:00 03/19/20 08:35 Hydrochlorothiazide PO 25 mg DAILY ALISA Administration Vancomycin HCl 1 gm/ 250 mls @ 166.667 mls/hr 03/19/20 10:30 03/19/20 11:34 Vancomycin HCl 250 mg/ Sodium IV 166.667 mls/hr Chloride Q24H ALISA Administration Insulin Glargine 15 unit 03/17/20 21:00 03/18/20 21:22 Lantus SUBCUT 15 unit BEDTIME ALISA Administration Insulin Human Lispro 0 unit 03/17/20 07:00 03/19/20 06:26 Humalog SUBCUT Not Given TIDAC [facility] Protocol Insulin Human Lispro 5 unit 03/17/20 17:00 03/19/20 08:34 Humalog SUBCUT 5 units TIDAC ALISA Administration Lisinopril 20 mg 03/18/20 09:00 03/19/20 08:35 Prinivil PO 20 mg DAILY ALISA Administration Metoprolol Succinate 50 mg 03/18/20 09:00 03/19/20 08:36 Toprol Xl PO 50 mg DAILY ALISA Administration Miscellaneous Information 1 ea 03/16/20 09:00 03/19/20 09:43 Remove Patch TRDERM Not Given DAILY [facility] Nicotine 21 mg 03/15/20 17:30 03/19/20 08:37 Habitrol TRDERM Not Given DAILY [facility] Ondansetron HCl 4 mg 03/15/20 17:25 Zofran Odt PO Q4H PRN nausea, able to take PO Oxycodone HCl 5 mg 03/15/20 17:25 03/18/20 21:24 Oxycodone PO 5 mg Q4H PRN Administration Pain (moderate 4-6) Simvastatin 20 mg 03/18/20 09:00 03/19/20 08:35 Zocor PO 20 mg DAILY [facility] Administration Sodium Chloride 10 ml 03/15/20 15:26 03/15/20 16:40 Saline Flush FLUSH 10 ml ASDIRECTED PRN Administration Keep Vein Open Tamsulosin HCl 0.4 mg 03/18/20 09:00 03/19/20 08:36 Flomax PO 0.4 mg DAILY ALISA Administration Trazodone HCl 100 mg 03/17/20 21:00 03/18/20 21:23 Trazodone PO 100 mg BEDTIME ALISA Administration Vancomycin HCl 1 dose 03/17/20 09:15 Pharmacy To Dose - Vancomycin .XX ASDIRECTED PRN RX TO DOSE VANCO Discontinued Medications Generic Name Dose Route Start Last Admin Trade Name Freq PRN Reason Stop Dose Admin Amlodipine Besylate 10 mg 03/16/20 14:15 03/17/20 09:07 Norvasc PO 10 mg DAILY ALISA Administration Clopidogrel Bisulfate 75 mg 03/16/20 09:00 03/16/20 08:55 Plavix PO 75 mg DAILY ALISA Administration Clopidogrel Bisulfate 75 mg 03/17/20 09:00 03/17/20 09:09 Plavix PO 75 mg DAILY ALISA Administration Sodium Chloride 1,000 mls @ 150 mls/hr 03/15/20 16:02 03/15/20 16:40 Normal Saline IV 03/15/20 22:41 150 mls/hr NOW STA Administration Ceftriaxone Sodium 2 gm/ 100 mls @ 200 mls/hr 03/15/20 16:02 03/15/20 16:38 Sodium Chloride IV 03/15/20 16:31 200 mls/hr ONETIME ONE Administration Sodium Chloride 1,000 mls @ 75 mls/hr 03/15/20 17:30 03/17/20 03:14 Normal Saline IV 75 mls/hr ASDIRECTED ALISA Administration Ceftriaxone Sodium 1 gm/ 100 mls @ 200 mls/hr 03/16/20 16:00 03/16/20 15:53 Sodium Chloride IV 200 mls/hr Q24H ALISA Administration Magnesium Sulfate 2 gm in 50 mls @ 25 mls/hr 03/16/20 17:22 03/16/20 18:00 Magnesium Sulfate In Water Premix IV 03/16/20 19:21 25 mls/hr ONETIME ONE Administration Vancomycin HCl 1 gm/ 500 mls @ 250 mls/hr 03/17/20 10:30 03/17/20 11:29 Vancomycin HCl 500 mg/ Sodium IV 03/17/20 12:29 250 mls/hr Chloride ONETIME ONE Administration Vancomycin HCl 1 gm/ Sodium 250 mls @ 250 mls/hr 03/18/20 10:30 03/18/20 09:49 Chloride IV 250 mls/hr Q24H ALISA Administration Dextrose/Lactated Ringer's 1,000 mls @ 75 mls/hr 03/17/20 13:00 03/18/20 07:32 Dextrose 5%-Lactated Ringers IV 75 mls/hr ASDIRECTED ALISA Administration Insulin Human Lispro 8 unit 03/15/20 16:44 03/15/20 16:59 Humalog SUBCUT 03/15/20 16:45 8 unit ONETIME ONE Administration Insulin Human Lispro 0 unit 03/16/20 09:00 03/16/20 18:40 Humalog SUBCUT Not Given [facility] Protocol Insulin Human Lispro 4 unit 03/16/20 13:33 03/16/20 14:38 Humalog SUBCUT 03/16/20 13:34 Not Given ONETIME ONE Insulin Human Lispro 0 unit 03/17/20 07:00 [facility]UT [facility] Protocol Insulin Human Regular 0 unit 03/15/20 19:00 03/15/20 21:29 Humulin R SUBCUT 8 unit [facility] Administration Protocol Morphine Sulfate 2 mg 03/15/20 17:25 Morphine IVPUSH 03/16/20 17:28 Q2H PRN Pain (severe 7-10) Trazodone 100mgOwn 1 each 03/16/20 21:00 03/16/20 20:40 Med PO 1 each BEDTIME ALISA Administration Lisinopril/ 1 each 03/16/20 14:15 03/17/20 09:09 Hydrochlorothiazide PO 1 each [Lisinopril-Hctz 20- DAILY ALISA Administration 25 MgOwn Med Metoprolol Succinate 50 mg 03/16/20 09:00 03/17/20 09:08 100 MgOwn Med PO 50 mg DAILY ALISA Administration Pravastatin 80 Mg 80 mg 03/18/20 09:00 Ptom PO DAILY ALISA Tamsulosin HCl 0.4 mg 03/16/20 10:00 03/16/20 09:01 Flomax PO 0.4 mg PCBREAKFAST ALISA Administration Tamsulosin HCl 0.4 mg 03/17/20 10:00 03/17/20 09:10 Flomax PO 0.4 mg PCBREAKFAST ALISA Administration Temazepam 7.5 mg 03/15/20 17:25 Restoril PO BEDTIME PRN Sleep Trazodone HCl 50 mg 03/15/20 22:49 03/15/20 23:16 Trazodone PO 50 mg BEDTIME PRN Administration Insomnia - Re-Assessments/Exams Free Text/Narrative Re-Assessment/Exam: Patient is a 74-year-old male sent to the ER from [facility]in [place] [facility] for urinary retention as well as abnormal labs. Evaluation in the clinic showed close elevated 472, BUN 47, creatinine 3.10, sodium 133, potassium 5.4, GFR 20. Urinalysis was grossly positive for urinary tract infection. She reports that over the last few days, he has had frequency of urination and only goes very small amount each time. He has no suprapubic discomfort. Upon arrival to ER, bladder scan showed greater than 1300 mils in the bladder. Indwelling urinary catheter was placed with cloudy urine returned. Denies any history of prostate problems, however he is on Flomax so I suspect there is a history of BPH. He has had no fever, chills, nausea, or vomiting. I have ordered CBC, CMP, CRP, hemoglobin A1c, urinalysis. 03/15/20 18:09 Hematology was significant for hemoglobin minimally low at 12.2, sodium low at 129, CO2 20, anion gap 18.6, BUN 45 creatinine 3.0 glucose 416, hemoglobin A1c 12.2, CRP 14.7. Analysis shows cloudy urine with 3+ protein, 2+ glucose, 2+ occult blood, 2+ leukocyte esterase, WBCs too numerous to count, and many bacteria. Covid screen is negative. I have ordered Rocephin 2 g IV, Humalog 8 units subcutaneous. Case discussed with Dr. Castillo hospitalist. He has accepted the patient for observation. Departure - Departure Time of Disposition: 18:09 Disposition: Refer to Observation Condition: Good Clinical Impression: Obstructive nephropathy due to benign prostatic hyperplasia, Urinary tract infection in male, Diabetes mellitus type 2 with complications, uncontrolled - Discharge Information Sepsis Event Note (ED) - Evaluation Sepsis Screening Result: No Definite Risk
[2020-03-15] MEDS ORDERED: cefTRIAXone 2 GM in Sodium Chloride 0.9% 100 ML IV ONE (16:02)
[2020-03-15] MEDS ORDERED: Sodium Chloride 0.9% 1,000 ML IV STA (16:02)
[2020-03-15 16:37] LABS: HEMOGLOBIN A1C 12.2 % (4.50-6.20)
--- NOTE | 2020-03-15 17:24 | PCM.HP.2 ---
H&P History of Present Illness - General Date of Service: 03/15/20 Admit Problem/Dx: Acute urinary retention with obstructive nephropathy Source of Information: Patient, EMS Notes Reviewed History Limitations: Reports: No Limitations - History of Present Illness Initial Comments - Free Text/Narative: The patient is a 74-year-old gentleman who had presented to the emergency department after concern for being unable to urinate properly. Patient reports that for the past 2 days he has had worsening urinary incontinence where he will need to go to the restroom every 5 minutes and only dribbles a small amount of urine. The patient has denied previous prostate issues as well as urinary tract issues. The patient has been taking medication for his diabetes but admits he has not been taking his blood sugars. The patient was found to be hyperglycemic in the emergency department and his A1c was also markedly elevated at 12.2%. Patient says that he has been taking all of his other medications for hypertension and dyslipidemia but the patient is somewhat of a poor historian. He has denied any fever or chills. He has had no nausea or vomiting. The patient also denies any dizziness or lightheadedness. The patient does not have any pain at the present time. Onset of Symptoms: Reports: Gradual Duration of Symptoms: Reports: Day(s):, Getting Worse Location: Reports: Other (Urinary retention) Quality: Reports: Ache Severity: Moderate Improves with: Reports: None Worsens with: Reports: None Associated Symptoms: Reports: No Other Symptoms Penis Pain Score (Numeric/FACES): 8 - Related Data Allergies/Adverse Reactions: Allergies Allergy/AdvReac Type Severity Reaction Status Date / Time shrimp Allergy Cannot Verified 03/15/20 15:17 Remember Home Medications: Home Meds Aspirin [Halfprin] 81 mg PO DAILY 07/10/16 [History] Clopidogrel [Plavix] 75 mg PO BEDTIME 07/10/16 [History] Pravastatin [Pravachol] 80 mg PO DAILY 07/10/16 [History] amLODIPine [Norvasc] 10 mg PO DAILY 07/10/16 [History] traZODone 100 mg PO BEDTIME 07/10/16 [History] Alogliptin Benzoate [Alogliptin] 25 mg PO DAILY 03/15/20 [History] Lisinopril/Hydrochlorothiazide [Lisinopril-Hctz 20-25 mg Tab] 1 each PO DAILY 03/15/20 [History] Metoprolol Succinate [Toprol XL 100mg] 50 mg PO DAILY 03/15/20 [History] Tamsulosin [Tamsulosin 24 Hr] 0.4 mg PO DAILY 03/15/20 [History] Past Medical History HEENT History: Reports: Other (See Below) Other HEENT History: eye surgery Cardiovascular History: Reports: High Cholesterol, Hypertension, Stents Respiratory History: Reports: None Gastrointestinal History: Reports: None Genitourinary History: Reports: BPH Musculoskeletal History: Reports: None Neurological History: Reports: None Psychiatric History: Reports: None Endocrine/Metabolic History: Reports: Diabetes, Type II Hematologic History: Reports: None Immunologic History: Reports: None Dermatologic History: Reports: None - Infectious Disease History Infectious Disease History: Reports: None - Past Surgical History HEENT Surgical History: Reports: Tonsillectomy GI Surgical History: Reports: Cholecystectomy Social & Family History - Tobacco Use Tobacco Use Status *Q: Current Every Day Tobacco User Years of Tobacco use: 60 Packs/Tins Daily: 0.5 - Caffeine Use Caffeine Use: Reports: None - Recreational Drug Use Recreational Drug Use: No - Living Situation & Occupation Living situation: Reports: Occupation: Employed H&P Review of Systems - Review of Systems: Review Of Systems: See Below General: Reports: No Symptoms HEENT: Reports: No Symptoms Pulmonary: Reports: No Symptoms Cardiovascular: Reports: No Symptoms Gastrointestinal: Reports: No Symptoms Genitourinary: Reports: Frequency, Pain, Urgency, Incontinence Musculoskeletal: Reports: No Symptoms Skin: Reports: No Symptoms Psychiatric: Reports: No Symptoms Neurological: Reports: No Symptoms Hematologic/Lymphatic: Reports: No Symptoms Immunologic: Reports: No Symptoms Exam - Exam Exam: See Below - Vital Signs Vital Signs: Last Vital Signs Temp Pulse 73 03/15/20 15:12 Resp 16 03/15/20 15:12 BP 154/93 H 03/15/20 15:12 Pulse Ox 99 03/15/20 15:12 Weight: 75.296 kg - Exam Quality Assessment: No: Supplemental Oxygen General: Alert, Oriented, Cooperative HEENT: Conjunctiva Clear, EACs Clear, EOMI, Hearing Intact, Pupils Equal, Pupils Reactive. No: Mucosa Moist & [place] (Dry, edentulous) Neck: Supple, Trachea Midline Lungs: Clear to Auscultation, Normal Respiratory Effort Cardiovascular: Regular Rate, Regular Rhythm GI/Abdominal Exam: Normal Bowel Sounds, Soft, Non-Tender, No Distention (Male) Exam: Deferred Rectal (Males) Exam: Normal Exam, Normal Rectal Tone, BPH (Unable to feel the upper pole of his prostate due to marked enlargement. Prostate firm) Back Exam: Normal Inspection Extremities: Normal Inspection, No Pedal Edema Skin: Warm, Dry, Intact Neuro Extensive - Mental Status: Alert, Oriented x3 Neuro Extensive - Motor, Sensory, Reflexes: CN II-XII Intact Psychiatric: Alert, Normal Affect, Normal Mood - Patient Data Lab Results Last 24 hrs: Laboratory Results - last 24 hr 03/15/20 03/15/20 03/15/20 Range/Units 15:20 15:56 16:04 WBC 6.21 (4.23-9.07) K/mm3 RBC 3.91 L (4.63-6.08) M/mm3 Hgb 12.2 L (13.7-17.5) gm/dl Hct 36.4 L (40.1-51.0) % MCV 93.1 H (79.0-92.2) fl MCH 31.2 (25.7-32.2) pg MCHC 33.5 (32.2-35.5) g/dl RDW Std Deviation 43.6 (35.1-43.9) fL Plt Count 263 (163-337) K/mm3 MPV 10.1 (9.4-12.3) fl Neut % (Auto) 51.4 (34.0-67.9) % Lymph % (Auto) 26.1 (21.8-53.1) % [place] % (Auto) 21.7 H (5.3-12.2) % Eos % (Auto) 0.2 L (0.8-7.0) Baso % (Auto) 0.3 (0.1-1.2) % Neut # (Auto) 3.19 (1.78-5.38) K/mm3 Lymph # (Auto) 1.62 (1.32-3.57) K/mm3 [place] # (Auto) 1.35 H (0.30-0.82) K/mm3 Eos # (Auto) 0.01 L (0.04-0.54) K/mm3 Baso # (Auto) 0.02 (0.01-0.08) K/mm3 Manual Slide Review Abnormal smear Sodium (136-145) mEq/L Potassium (3.5-5.1) mEq/L Chloride (98-107) mEq/L Carbon Dioxide (21-32) mEq/L Anion Gap (5-15) BUN (7-18) mg/dL Creatinine (0.7-1.3) mg/dL Est Cr Clr Drug Dosing mL/min Estimated GFR (MDRD) (>60) mL/min BUN/Creatinine Ratio (14-18) Glucose (83-115) mg/dL Hemoglobin A1c (4.50-6.20) % Calcium (8.5-10.1) mg/dL Total Bilirubin (0.2-1.0) mg/dL AST (15-37) U/L ALT (16-63) U/L Alkaline Phosphatase (46-116) U/L C-Reactive Protein (<1.0) mg/dL Total Protein (6.4-8.2) g/dl Albumin (3.4-5.0) g/dl Globulin gm/dL Albumin/Globulin Ratio (1-2) Urine Color Yellow (Yellow) Urine Appearance Cloudy H (Clear) Urine pH 6.0 (5.0-8.0) Ur Specific [place] 1.025 (1.005-1.030) Urine Protein 3+ H (Negative) Urine Glucose (UA) 2+ H (Negative) Urine Ketones Negative (Negative) Urine Occult Blood 2+ H (Negative) Urine Nitrite Negative (Negative) Urine Bilirubin Negative (Negative) Urine Urobilinogen 0.2 (0.2-1.0) Ur Leukocyte Esterase 2+ H (Negative) Urine RBC 0-5 (0-5) /hpf Urine WBC Too numerous to cnt H (0-5) /hpf Urine WBC Clumps Few (NOT SEEN) /hpf Ur Epithelial Cells Not seen (0-5) /hpf Urine Bacteria Many H (FEW) /hpf Urine Mucus Not seen (FEW) /hpf SARS-CoV-2 RNA (AI) Negative (NEGATIVE) 03/15/20 03/15/20 Range/Units 16:04 16:04 WBC (4.23-9.07) K/mm3 RBC (4.63-6.08) M/mm3 Hgb (13.7-17.5) gm/dl Hct (40.1-51.0) % MCV (79.0-92.2) fl MCH (25.7-32.2) pg MCHC (32.2-35.5) g/dl RDW Std Deviation (35.1-43.9) fL Plt Count (163-337) K/mm3 MPV (9.4-12.3) fl Neut % (Auto) (34.0-67.9) % Lymph % (Auto) (21.8-53.1) % [place] % (Auto) (5.3-12.2) % Eos % (Auto) (0.8-7.0) Baso % (Auto) (0.1-1.2) % Neut # (Auto) (1.78-5.38) K/mm3 Lymph # (Auto) (1.32-3.57) K/mm3 [place] # (Auto) (0.30-0.82) K/mm3 Eos # (Auto) (0.04-0.54) K/mm3 Baso # (Auto) (0.01-0.08) K/mm3 Manual Slide Review Sodium 129 L (136-145) mEq/L Potassium 4.6 (3.5-5.1) mEq/L Chloride 95 L (98-107) mEq/L Carbon Dioxide 20 L (21-32) mEq/L Anion Gap 18.6 H (5-15) BUN 45 H (7-18) mg/dL Creatinine 3.0 H (0.7-1.3) mg/dL Est Cr Clr Drug Dosing 18.90 mL/min Estimated GFR (MDRD) 20 (>60) mL/min BUN/Creatinine Ratio 15.0 (14-18) Glucose 416 H (83-115) mg/dL Hemoglobin A1c 12.20 H (4.50-6.20) % Calcium 9.9 (8.5-10.1) mg/dL Total Bilirubin 0.9 (0.2-1.0) mg/dL AST 7 L (15-37) U/L ALT 15 L (16-63) U/L Alkaline Phosphatase 74 (46-116) U/L C-Reactive Protein 14.7 H* (<1.0) mg/dL Total Protein 7.6 (6.4-8.2) g/dl Albumin 3.6 (3.4-5.0) g/dl Globulin 4.0 gm/dL Albumin/Globulin Ratio 0.9 L (1-2) Urine Color (Yellow) Urine Appearance (Clear) Urine pH (5.0-8.0) Ur Specific [place] (1.005-1.030) Urine Protein (Negative) Urine Glucose (UA) (Negative) Urine Ketones (Negative) Urine Occult Blood (Negative) Urine Nitrite (Negative) Urine Bilirubin (Negative) Urine Urobilinogen (0.2-1.0) Ur Leukocyte Esterase (Negative) Urine RBC (0-5) /hpf Urine WBC (0-5) /hpf Urine WBC Clumps (NOT SEEN) /hpf Ur Epithelial Cells (0-5) /hpf Urine Bacteria (FEW) /hpf Urine Mucus (FEW) /hpf SARS-CoV-2 RNA (AI) (NEGATIVE) Result Diagrams: 03/16/20 04:10 03/16/20 04:10 Sepsis Event Note - Evaluation Sepsis Screening Result: No Definite Risk - Focused Exam Vital Signs: Vital Signs Pulse Resp BP Pulse Ox 03/15/20 15:12 73 16 154/93 H 99 - Problem List (1) Obstructive nephropathy due to benign prostatic hyperplasia SNOMED Code(s): 833175206 ICD Code: N40.1 - BENIGN PROSTATIC HYPERPLASIA WITH LOWER URINARY TRACT SYMP; N13.8 - OTHER OBSTRUCTIVE AND REFLUX UROPATHY Status: Acute Priority: High Current Visit: Yes (2) Hypertension SNOMED Code(s): 82886051 ICD Code: I10 - ESSENTIAL (PRIMARY) HYPERTENSION Status: Chronic Priority: High Current Visit: Yes Qualifiers: Hypertension type: essential hypertension Qualified Code(s): I10 - Essential (primary) hypertension (3) Diabetes mellitus type 2 with complications, uncontrolled SNOMED Code(s): 36853670, 279804996 ICD Code: E11.8 - TYPE 2 DIABETES MELLITUS WITH UNSPECIFIED COMPLICATIONS; E11.65 - TYPE 2 DIABETES MELLITUS WITH HYPERGLYCEMIA Status: Chronic Priority: Medium Current Visit: Yes (4) Urinary tract infection in male SNOMED Code(s): 39351758, 775162072 ICD Code: N39.0 - URINARY TRACT INFECTION, SITE NOT SPECIFIED Status: Acute Current Visit: Yes (5) Tobacco dependence due to cigarettes SNOMED Code(s): 22267164941472677 ICD Code: F17.210 - NICOTINE DEPENDENCE, CIGARETTES, UNCOMPLICATED Status: Chronic Priority: Medium Current Visit: Yes (6) Acute renal failure SNOMED Code(s): 75809012 ICD Code: N17.9 - ACUTE KIDNEY FAILURE, UNSPECIFIED Status: Acute Priority: High Current Visit: Yes Qualifiers: Acute renal failure type: unspecified Qualified Code(s): N17.9 - Acute kidney failure, unspecified Problem List Initiated/Reviewed/Updated: Yes Orders Last 24hrs: Active Orders 24 hr Category Date Time Status Insert Holt Catheter [Insert Urinary Catheter] [OM.PC] Care 03/15/20 15:20 Ordered Stat Peripheral IV Care [RC] . DIRECTED Care 03/15/20 15:26 Active Urinary Catheter Assessment [RC] ASDIRECTED Care 03/15/20 16:02 Active CULTURE URINE [RM] Stat Lab 03/15/20 16:01 Received Sodium Chloride 0.9% [Normal Saline] 1,000 ml Med 03/15/20 16:02 Active IV NOW Sodium Chloride 0.9% [Saline Flush] Med 03/15/20 15:26 Active 10 ml FLUSH ASDIRECTED PRN Peripheral IV Insertion Adult [OM.PC] Stat Oth 03/15/20 15:26 Ordered Medication Orders Sodium Chloride (Normal Saline) 1,000 mls @ 150 mls/hr IV NOW STA Stop: 03/15/20 22:41 Last Admin: 03/15/20 16:40 Dose: 150 mls/hr Documented by: ASHLEY Sodium Chloride (Saline Flush) 10 ml FLUSH ASDIRECTED PRN PRN Reason: Keep Vein Open Last Admin: 03/15/20 16:40 Dose: 10 ml Documented by: ASHLEY Assessment/Plan Comment:: The patient is a 74-year-old gentleman who has been admitted secondary to obstructive uropathy. The patient had Holt catheter placed in the emergency department which had resulted in 1600 cc of urine. The patient will also be treated for urinary tract infection with the use of Rocephin 1 g IV daily due to his current depressed renal function. The combination of hypertension and diabetes that is poorly controlled is likely that the patient's renal function is depressed to the point that this is chronic kidney disease stage III. Will monitor with fluids. The patient is a diabetic and his A1c is at 12.2% which indicates poorly controlled. I discussed this with the patient. The patient will also be kept on appropriate carb constant diet as well as insulin to help control his blood sugars in hospital. The patient is a smoker and he will be given nicotine patches as necessary to help to help with his addiction symptoms. PSA was not completed as this would be elevated regardless. The patient has been started on Flomax and finasteride and both of these will be continued upon discharge. The patient is also to follow-up with urology and likely will go home with a Holt catheter. The patient will also be continued on his home antihypertensive medications. His vital signs will be monitored. - Mortality Measure Prognosis:: Good
[2020-03-15] MEDS ORDERED: Ondansetron 4 MG Tab.DIS PO PRN (17:25)
[2020-03-15] MEDS ORDERED: Docusate Sodium 100 MG Cap PO PRN (17:25)
[2020-03-15] MEDS ORDERED: Morphine 2 MG/ML SYRINGE IVPUSH PRN (17:25)
[2020-03-15] MEDS ORDERED: Temazepam 7.5 MG Cap PO PRN (17:25)
[2020-03-15] MEDS ORDERED: Insulin Regular, Human 100 Units/ML 3 ML Vial SUBCUT SCH (19:00)
[2020-03-15] MEDS: oxyCODONE 5 MG Tab PO PRN (21:18)
[2020-03-15] MEDS: Finasteride 5 MG Tab PO SCH (21:20)
[2020-03-15] MEDS: Heparin Sodium 5,000 Units/ML Vial SUBCUT SCH (21:32)
[2020-03-15] MEDS: Nicotine 21 MG/24 Hr Patch TRDERM SCH (21:37)
[2020-03-15] MEDS ORDERED: traZODone 50 MG Tab PO PRN (22:49)
[2020-03-15] MEDS: Sodium Chloride 0.9% 1,000 ML IV SCH (23:19)
[2020-03-16] MEDS: oxyCODONE 5 MG Tab PO PRN ×2 (02:26→07:54)
[2020-03-16] MEDS: Acetaminophen 325 MG Tab PO PRN ×2 (02:27→07:52)
[2020-03-16] MEDS: Heparin Sodium 5,000 Units/ML Vial SUBCUT SCH ×3 (05:50→20:59)
[2020-03-16] MEDS: Aspirin 81 MG Tab.EC PO SCH (08:55)
[2020-03-16] MEDS ORDERED: Clopidogrel 75 MG Tab PO SCH (09:00)
[2020-03-16] MEDS: Nicotine 21 MG/24 Hr Patch TRDERM SCH (09:00)
[2020-03-16] MEDS ORDERED: Tamsulosin 0.4 MG Cap.ER PO SCH (10:00)
--- NOTE | 2020-03-16 10:09 | PCM.PN ---
- General Info Date of Service: 03/16/20 Admission Dx/Problem (Free Text): Acute urinary retention with obstructive nephropathy Subjective Update: The patient is a 74-year-old gentleman who was admitted yesterday after not being able to urinate. The patient had severe urinary retention along with overflow incontinence due to severe prostatomegaly and Holt catheter was placed in the emergency department. The patient was also noted to have a urinary tract infection and cultures are currently pending. Today the patient says that he is feeling well. He has no other complaints today. The patient has been tolerating his diet. Functional Status: Reports: Pain Controlled, Tolerating Diet - Review of Systems General: Reports: No Symptoms HEENT: Reports: No Symptoms Pulmonary: Reports: No Symptoms Cardiovascular: Reports: No Symptoms Gastrointestinal: Reports: No Symptoms Genitourinary: Reports: No Symptoms Musculoskeletal: Reports: No Symptoms Skin: Reports: No Symptoms Neurological: Reports: No Symptoms Psychiatric: Reports: No Symptoms - Patient Data Vitals - Most Recent: Last Vital Signs Temp 36.4 C 03/16/20 05:45 Pulse 96 03/16/20 05:45 Resp 14 03/16/20 05:45 BP 129/85 03/16/20 05:45 Pulse Ox 99 03/16/20 05:45 Weight - Most Recent: 74.389 kg I&O - Last 24 Hours: Intake & Output 03/15/20 03/16/20 03/16/20 22:59 06:59 14:59 Intake Total 2200 Output Total 2200 1000 Balance -2200 1200 Lab Results Last 24 Hours: Laboratory Results - last 24 hr 03/15/20 03/15/20 03/15/20 Range/Units 15:20 15:56 16:04 WBC 6.21 (4.23-9.07) K/mm3 RBC 3.91 L (4.63-6.08) M/mm3 Hgb 12.2 L (13.7-17.5) gm/dl Hct 36.4 L (40.1-51.0) % MCV 93.1 H (79.0-92.2) fl MCH 31.2 (25.7-32.2) pg MCHC 33.5 (32.2-35.5) g/dl RDW Std Deviation 43.6 (35.1-43.9) fL Plt Count 263 (163-337) K/mm3 MPV 10.1 (9.4-12.3) fl Neut % (Auto) 51.4 (34.0-67.9) % Lymph % (Auto) 26.1 (21.8-53.1) % [place] % (Auto) 21.7 H (5.3-12.2) % Eos % (Auto) 0.2 L (0.8-7.0) Baso % (Auto) 0.3 (0.1-1.2) % Neut # (Auto) 3.19 (1.78-5.38) K/mm3 Lymph # (Auto) 1.62 (1.32-3.57) K/mm3 [place] # (Auto) 1.35 H (0.30-0.82) K/mm3 Eos # (Auto) 0.01 L (0.04-0.54) K/mm3 Baso # (Auto) 0.02 (0.01-0.08) K/mm3 Manual Slide Review Abnormal smear Sodium (136-145) mEq/L Potassium (3.5-5.1) mEq/L Chloride (98-107) mEq/L Carbon Dioxide (21-32) mEq/L Anion Gap (5-15) BUN (7-18) mg/dL Creatinine (0.7-1.3) mg/dL Est Cr Clr Drug Dosing mL/min Estimated GFR (MDRD) (>60) mL/min BUN/Creatinine Ratio (14-18) Glucose (83-115) mg/dL POC Glucose (83-110) mg/dL Hemoglobin A1c (4.50-6.20) % Calcium (8.5-10.1) mg/dL Magnesium (1.8-2.4) mg/dl Total Bilirubin (0.2-1.0) mg/dL AST (15-37) U/L ALT (16-63) U/L Alkaline Phosphatase (46-116) U/L C-Reactive Protein (<1.0) mg/dL Total Protein (6.4-8.2) g/dl Albumin (3.4-5.0) g/dl Globulin gm/dL Albumin/Globulin Ratio (1-2) Urine Color Yellow (Yellow) Urine Appearance Cloudy H (Clear) Urine pH 6.0 (5.0-8.0) Ur Specific [place] 1.025 (1.005-1.030) Urine Protein 3+ H (Negative) Urine Glucose (UA) 2+ H (Negative) Urine Ketones Negative (Negative) Urine Occult Blood 2+ H (Negative) Urine Nitrite Negative (Negative) Urine Bilirubin Negative (Negative) Urine Urobilinogen 0.2 (0.2-1.0) Ur Leukocyte Esterase 2+ H (Negative) Urine RBC 0-5 (0-5) /hpf Urine WBC Too numerous to cnt H (0-5) /hpf Urine WBC Clumps Few (NOT SEEN) /hpf Ur Epithelial Cells Not seen (0-5) /hpf Urine Bacteria Many H (FEW) /hpf Urine Mucus Not seen (FEW) /hpf SARS-CoV-2 RNA (AI) Negative (NEGATIVE) 03/15/20 03/15/20 03/15/20 Range/Units 16:04 16:04 18:43 WBC (4.23-9.07) K/mm3 RBC (4.63-6.08) M/mm3 Hgb (13.7-17.5) gm/dl Hct (40.1-51.0) % MCV (79.0-92.2) fl MCH (25.7-32.2) pg MCHC (32.2-35.5) g/dl RDW Std Deviation (35.1-43.9) fL Plt Count (163-337) K/mm3 MPV (9.4-12.3) fl Neut % (Auto) (34.0-67.9) % Lymph % (Auto) (21.8-53.1) % [place] % (Auto) (5.3-12.2) % Eos % (Auto) (0.8-7.0) Baso % (Auto) (0.1-1.2) % Neut # (Auto) (1.78-5.38) K/mm3 Lymph # (Auto) (1.32-3.57) K/mm3 [place] # (Auto) (0.30-0.82) K/mm3 Eos # (Auto) (0.04-0.54) K/mm3 Baso # (Auto) (0.01-0.08) K/mm3 Manual Slide Review Sodium 129 L (136-145) mEq/L Potassium 4.6 (3.5-5.1) mEq/L Chloride 95 L (98-107) mEq/L Carbon Dioxide 20 L (21-32) mEq/L Anion Gap 18.6 H (5-15) BUN 45 H (7-18) mg/dL Creatinine 3.0 H (0.7-1.3) mg/dL Est Cr Clr Drug Dosing 18.90 mL/min Estimated GFR (MDRD) 20 (>60) mL/min BUN/Creatinine Ratio 15.0 (14-18) Glucose 416 H (83-115) mg/dL POC Glucose 363 H (83-110) mg/dL Hemoglobin A1c 12.20 H (4.50-6.20) % Calcium 9.9 (8.5-10.1) mg/dL Magnesium (1.8-2.4) mg/dl Total Bilirubin 0.9 (0.2-1.0) mg/dL AST 7 L (15-37) U/L ALT 15 L (16-63) U/L Alkaline Phosphatase 74 (46-116) U/L C-Reactive Protein 14.7 H* (<1.0) mg/dL Total Protein 7.6 (6.4-8.2) g/dl Albumin 3.6 (3.4-5.0) g/dl Globulin 4.0 gm/dL Albumin/Globulin Ratio 0.9 L (1-2) Urine Color (Yellow) Urine Appearance (Clear) Urine pH (5.0-8.0) Ur Specific [place] (1.005-1.030) Urine Protein (Negative) Urine Glucose (UA) (Negative) Urine Ketones (Negative) Urine Occult Blood (Negative) Urine Nitrite (Negative) Urine Bilirubin (Negative) Urine Urobilinogen (0.2-1.0) Ur Leukocyte Esterase (Negative) Urine RBC (0-5) /hpf Urine WBC (0-5) /hpf Urine WBC Clumps (NOT SEEN) /hpf Ur Epithelial Cells (0-5) /hpf Urine Bacteria (FEW) /hpf Urine Mucus (FEW) /hpf SARS-CoV-2 RNA (AI) (NEGATIVE) 03/15/20 03/16/20 03/16/20 Range/Units 21:22 04:10 04:10 WBC 8.61 (4.23-9.07) K/mm3 RBC 3.72 L (4.63-6.08) M/mm3 Hgb 11.7 L (13.7-17.5) gm/dl Hct 34.6 L (40.1-51.0) % MCV 93.0 H (79.0-92.2) fl MCH 31.5 (25.7-32.2) pg MCHC 33.8 (32.2-35.5) g/dl RDW Std Deviation 43.2 (35.1-43.9) fL Plt Count 273 (163-337) K/mm3 MPV 10.2 (9.4-12.3) fl Neut % (Auto) 60.3 (34.0-67.9) % Lymph % (Auto) 21.1 L (21.8-53.1) % [place] % (Auto) 17.9 H (5.3-12.2) % Eos % (Auto) 0.3 L (0.8-7.0) Baso % (Auto) 0.2 (0.1-1.2) % Neut # (Auto) 5.18 (1.78-5.38) K/mm3 Lymph # (Auto) 1.82 (1.32-3.57) K/mm3 [place] # (Auto) 1.54 H (0.30-0.82) K/mm3 Eos # (Auto) 0.03 L (0.04-0.54) K/mm3 Baso # (Auto) 0.02 (0.01-0.08) K/mm3 Manual Slide Review Abnormal smear Sodium 135 L (136-145) mEq/L Potassium 4.3 (3.5-5.1) mEq/L Chloride 103 (98-107) mEq/L Carbon Dioxide 20 L (21-32) mEq/L Anion Gap 16.3 H (5-15) BUN 42 H (7-18) mg/dL Creatinine 2.5 H (0.7-1.3) mg/dL Est Cr Clr Drug Dosing 22.68 mL/min Estimated GFR (MDRD) 25 (>60) mL/min BUN/Creatinine Ratio 16.8 (14-18) Glucose 135 H (83-115) mg/dL POC Glucose 307 H (83-110) mg/dL Hemoglobin A1c (4.50-6.20) % Calcium 9.0 (8.5-10.1) mg/dL Magnesium 1.6 L (1.8-2.4) mg/dl Total Bilirubin 0.4 (0.2-1.0) mg/dL AST 9 L (15-37) U/L ALT 12 L (16-63) U/L Alkaline Phosphatase 64 (46-116) U/L C-Reactive Protein 10.7 H* (<1.0) mg/dL Total Protein 6.6 (6.4-8.2) g/dl Albumin 3.0 L (3.4-5.0) g/dl Globulin 3.6 gm/dL Albumin/Globulin Ratio 0.8 L (1-2) Urine Color (Yellow) Urine Appearance (Clear) Urine pH (5.0-8.0) Ur Specific [place] (1.005-1.030) Urine Protein (Negative) Urine Glucose (UA) (Negative) Urine Ketones (Negative) Urine Occult Blood (Negative) Urine Nitrite (Negative) Urine Bilirubin (Negative) Urine Urobilinogen (0.2-1.0) Ur Leukocyte Esterase (Negative) Urine RBC (0-5) /hpf Urine WBC (0-5) /hpf Urine WBC Clumps (NOT SEEN) /hpf Ur Epithelial Cells (0-5) /hpf Urine Bacteria (FEW) /hpf Urine Mucus (FEW) /hpf SARS-CoV-2 RNA (AI) (NEGATIVE) Med Orders - Current: Current Medications Acetaminophen (Tylenol) 650 mg PO Q4H PRN PRN Reason: Pain (Mild 1-3)/fever Last Admin: 03/16/20 07:52 Dose: 650 mg Documented by: Amlodipine Besylate (Norvasc) 10 mg PO DAILY [facility] Aspirin (Halfprin) 81 mg PO DAILY [facility] Last Admin: 03/16/20 08:55 Dose: 81 mg Documented by: Clopidogrel Bisulfate (Plavix) 75 mg PO DAILY [facility] Last Admin: 03/16/20 08:55 Dose: 75 mg Documented by: Docusate Sodium (Colace) 100 mg PO BID PRN PRN Reason: Constipation Finasteride (Proscar) 5 mg PO BEDTIME [facility] Last Admin: 03/15/20 21:20 Dose: 5 mg Documented by: Heparin Sodium (Porcine) (Heparin Sodium) 5,000 units SUBCUT Q8H [facility] Last Admin: 03/16/20 05:50 Dose: 5,000 units Documented by: Sodium Chloride (Normal Saline) 1,000 mls @ 75 mls/hr IV ASDIRECTED [facility] Last Admin: 03/15/20 23:19 Dose: 75 mls/hr Documented by: Ceftriaxone Sodium 1 gm/ (Sodium Chloride) 100 mls @ 200 mls/hr IV Q24H [facility] Insulin Human Lispro ([facility]alog) [facility]; Protocol Last Admin: 03/16/20 08:23 Dose: 2 units Documented by: Miscellaneous Information (Remove Patch) 1 ea TRDERM DAILY [facility] Morphine Sulfate (Morphine) 2 mg IVPUSH Q2H PRN PRN Reason: Pain (severe 7-10) Stop: 03/16/20 17:28 Nicotine (Habitrol) 21 mg TRDERM DAILY [facility] Last Admin: 03/15/20 21:37 Dose: 21 mg Documented by: Non-Formulary Medication (Lisinopril/Hydrochlorothiazide [Lisinopril-Hctz 20-25 Mg Tab]) 1 each PO DAILY [facility] Non-Formulary Medication (Metoprolol Succinate) 50 mg PO DAILY [facility] Ondansetron HCl (Zofran Odt) 4 mg PO Q4H PRN PRN Reason: nausea, able to take PO Oxycodone HCl (Oxycodone) 5 mg PO Q4H PRN PRN Reason: Pain (moderate 4-6) Last Admin: 03/16/20 07:54 Dose: 5 mg Documented by: Sodium Chloride (Saline Flush) 10 ml FLUSH ASDIRECTED PRN PRN Reason: Keep Vein Open Last Admin: 03/15/20 16:40 Dose: 10 ml Documented by: Tamsulosin HCl (Flomax) 0.4 mg PO PCBREAKFAST [facility] Last Admin: 03/16/20 09:01 Dose: 0.4 mg Documented by: Trazodone HCl (Trazodone) 50 mg PO BEDTIME PRN PRN Reason: Insomnia Last Admin: 03/15/20 23:16 Dose: 50 mg Documented by: Trazodone HCl (Trazodone) 100 mg PO BEDTIME [facility] Discontinued Medications Sodium Chloride (Normal Saline) 1,000 mls @ 150 mls/hr IV NOW STA Stop: 03/15/20 22:41 Last Admin: 03/15/20 16:40 Dose: 150 mls/hr Documented by: Ceftriaxone Sodium 2 gm/ (Sodium Chloride) 100 mls @ 200 mls/hr IV ONETIME ONE Stop: 03/15/20 16:31 Last Admin: 03/15/20 16:38 Dose: 200 mls/hr Documented by: Insulin Human Lispro (Humalog) 8 unit SUBCUT ONETIME ONE Stop: 03/15/20 16:45 Last Admin: 03/15/20 16:59 Dose: 8 unit Documented by: Insulin Human Regular (Humulin R) 0 unit SUBCUT [facility]; Protocol Last Admin: 03/15/20 21:29 Dose: 8 unit Documented by: Temazepam (Restoril) 7.5 mg PO BEDTIME PRN PRN Reason: Sleep - Exam Quality Assessment: Supplemental Oxygen, Urine Catheter, DVT Prophylaxis General: Alert, Oriented, Cooperative HEENT: Pupils Equal, Pupils Reactive, EOMI, Mucous Membr. Moist/[place] (Edentulous) Neck: Supple, Trachea Midline Lungs: Clear to Auscultation, Normal Respiratory Effort Cardiovascular: Regular Rate, Regular Rhythm GI/Abdominal Exam: Normal Bowel Sounds, Soft, No Distention (Male) Exam: Deferred Back Exam: Normal Inspection, Full Range of Motion Extremities: Normal Inspection, No Pedal Edema Skin: Warm, Dry, Intact Neurological: No New Focal Deficit Psy/Mental Status: Alert, Normal Affect, Normal Mood Sepsis Event Note - Evaluation Sepsis Screening Result: No Definite Risk - Focused Exam Vital Signs: Vital Signs Temp Pulse Resp BP Pulse Ox 03/16/20 05:45 36.4 C 96 14 129/85 99 03/15/20 23:34 37.1 C 89 15 116/62 94 L - Problem List & Annotations (1) Obstructive nephropathy due to benign prostatic hyperplasia SNOMED Code(s): 739741546 Code(s): N40.1 - BENIGN PROSTATIC HYPERPLASIA WITH LOWER URINARY TRACT SYMP; N13.8 - OTHER OBSTRUCTIVE AND REFLUX UROPATHY Status: Acute Priority: High Current Visit: Yes (2) Hypertension SNOMED Code(s): 12081701 Code(s): I10 - ESSENTIAL (PRIMARY) HYPERTENSION Status: Chronic Priority: High Current Visit: Yes Qualifiers: Hypertension type: essential hypertension Qualified Code(s): I10 - Essential (primary) hypertension (3) Diabetes mellitus type 2 with complications, uncontrolled SNOMED Code(s): 55464558, 602463153 Code(s): E11.8 - TYPE 2 DIABETES MELLITUS WITH UNSPECIFIED COMPLICATIONS; E11.65 - TYPE 2 DIABETES MELLITUS WITH HYPERGLYCEMIA Status: Chronic Priority: Medium Current Visit: Yes (4) Urinary tract infection in male SNOMED Code(s): 48721474, 460046375 Code(s): N39.0 - URINARY TRACT INFECTION, SITE NOT SPECIFIED Status: Acute Current Visit: Yes (5) Tobacco dependence due to cigarettes SNOMED Code(s): 67956013507743562 Code(s): F17.210 - NICOTINE DEPENDENCE, CIGARETTES, UNCOMPLICATED Status: Chronic Priority: Medium Current Visit: Yes (6) Acute renal failure SNOMED Code(s): 87236814 Code(s): N17.9 - ACUTE KIDNEY FAILURE, UNSPECIFIED Status: Acute Priority: High Current Visit: Yes Qualifiers: Acute renal failure type: unspecified Qualified Code(s): N17.9 - Acute kidney failure, unspecified - Problem List Review Problem List Initiated/Reviewed/Updated: Yes - My Orders Last 24 Hours: My Active Orders 03/15/20 17:25 Blood Glucose Check, Bedside [RC] WITHMEALSANDBED Up ad Michelle [RC] BID Consult to Diabetic Nurse Specialist [CONS] Routine Acetaminophen [TylenoL] 650 mg PO Q4H PRN Docusate Sodium [Colace] 100 mg PO BID PRN Morphine 2 mg IVPUSH Q2H PRN Ondansetron [Zofran ODT] 4 mg PO Q4H PRN oxyCODONE 5 mg PO Q4H PRN Resuscitation Status Routine 03/15/20 17:26 Oxygen Therapy [RC] PRN VTE/DVT Education [RC] DAILY Vital Signs [RC] Q4HR 03/15/20 17:30 Nicotine [Habitrol] 21 mg TRDERM DAILY Sodium Chloride 0.9% [Normal Saline] 1,000 ml IV ASDIRECTED 03/15/20 21:00 Finasteride [Proscar] 5 mg PO BEDTIME 03/15/20 22:00 Heparin Sodium 5,000 units SUBCUT Q8H 03/15/20 22:49 traZODone 50 mg PO BEDTIME PRN 03/16/20 Breakfast Consistent Carbohydrate Diet [DIET] 03/16/20 09:00 Aspirin [Halfprin] 81 mg PO DAILY Clopidogrel [Plavix] 75 mg PO DAILY Insulin Lispro [HumaLOG] See Protocol SUBCUT [facility] Lisinopril/Hydrochlorothiazide [Lisinopril-Hctz 20-25 mg Tab] 1 each PO DAILY Metoprolol Succinate 50 mg PO DAILY Remove Patch 1 ea TRDERM DAILY amLODIPine [Norvasc] 10 mg PO DAILY 03/16/20 10:00 Tamsulosin [Flomax] 0.4 mg PO PCBREAKFAST 03/16/20 16:00 cefTRIAXone [Rocephin] 1 gm Sodium Chloride 0.9% [Normal Saline] 100 ml IV Q24H 03/16/20 21:00 traZODone 100 mg PO BEDTIME - Plan Plan:: The patient is a 74-year-old gentleman who has been admitted secondary to obstructive uropathy. The patient had Holt catheter placed in the emergency department which had resulted in 1600 cc of urine. The patient will also be treated for urinary tract infection with the use of Rocephin 1 g IV daily due to his current depressed renal function. The combination of hypertension and diabetes that is poorly controlled is likely that the patient's renal function is depressed to the point that this is chronic kidney disease stage III. Will monitor with fluids. The patient is a diabetic and his A1c is at 12.2% which indicates poorly controlled. I discussed this with the patient. The patient will also be kept on appropriate carb constant diet as well as insulin to help control his blood sugars in hospital. The patient is a smoker and he will be given nicotine patches as necessary to help to help with his addiction symptoms. PSA was not completed as this would be elevated regardless. The patient has been started on Flomax and finasteride and both of these will be continued upon discharge. The patient is also to follow-up with urology and likely will go home with a Holt catheter. The patient will also be continued on his home antihypertensive medications. His vital signs will be monitored. 03/16/2020 The patient is a 74-year-old gentleman who is doing better today. He still has a Holt catheter for his obstructive uropathy. The patient is also on Rocephin 1 g IV daily for urinary tract infection. The organism has been tentatively identified as E. coli with sensitivities pending. The patient also has had some improvement in his EGFR which is now at 22.6 mL/min. The patient's medications will continue to be renally dosed. He is also scheduled for nurse informatics educator. The patient will need to follow-up with urology upon discharge and he will likely go home with catheter due to his severe prostatomegaly. The patient has been encouraged to ambulate. He will be continued on his diabetic diet with insulin to help with his hyperglycemia.
[2020-03-16] MEDS: Sodium Chloride 0.9% 1,000 ML IV SCH (13:52)
[2020-03-16] MEDS: LISINOPRIL PO SCH (14:15)
[2020-03-16] MEDS: HYDROCHLOROTHIAZIDE PO SCH (14:15)
[2020-03-16] MEDS: amLODIPine 10 MG Tab**OWN MED PO SCH (14:18)
[2020-03-16] MEDS ORDERED: cefTRIAXone 1 GM in Sodium Chloride 0.9% 100 ML IV SCH (16:00)
[2020-03-16] MEDS ORDERED: Magnesium Sulfate/Water 2 GM/50 ML BAG IV ONE (17:22)
[2020-03-16] MEDS: Finasteride 5 MG Tab PO SCH (20:39)
[2020-03-16] MEDS ORDERED: TRAZODONE 100 MG PO SCH (21:00)
[2020-03-17] MEDS: Sodium Chloride 0.9% 1,000 ML IV SCH (03:14)
[2020-03-17] MEDS: Heparin Sodium 5,000 Units/ML Vial SUBCUT SCH ×3 (06:11→21:35)
[2020-03-17] MEDS ORDERED: Insulin Lispro 100 Units/ML 3 ML Vial SUBCUT SCH (07:00)
[2020-03-17] MEDS ORDERED: Clopidogrel 75 MG Tab**OWN MED PO SCH (09:00)
[2020-03-17] MEDS: Aspirin 81 MG Tab.EC PO SCH (09:05)
[2020-03-17] MEDS: amLODIPine 10 MG Tab**OWN MED PO SCH (09:07)
[2020-03-17] MEDS: HYDROCHLOROTHIAZIDE PO SCH (09:09)
[2020-03-17] MEDS: LISINOPRIL PO SCH (09:09)
[2020-03-17] MEDS: Nicotine 21 MG/24 Hr Patch TRDERM SCH (09:10)
[2020-03-17] MEDS ORDERED: Tamsulosin 0.4 MG Cap.ER**OWN MED PO SCH (10:00)
[2020-03-17] MEDS ORDERED: Vancomycin 1 GM, Vancomycin 500 MG in Sodium Chloride 0.9% 500 ML IV ONE (10:30)
--- NOTE | 2020-03-17 10:41 | PCM.PN ---
- General Info Date of Service: 03/17/20 Admission Dx/Problem (Free Text): Acute urinary retention with obstructive nephropathy Subjective Update: Morales is feeling well. He is interested in going home, but he has gram- positive cocci growing from his urine that are likely staph. He has been on Rocephin. His renal function is improving but his anion gap has not. He continues to be acidotic with a low bicarb. He continues on 75 mL of normal saline per hour. Functional Status: Reports: Pain Controlled - Review of Systems General: Reports: No Symptoms HEENT: Reports: No Symptoms Pulmonary: Reports: No Symptoms Cardiovascular: Reports: No Symptoms Gastrointestinal: Reports: No Symptoms - Patient Data Vitals - Most Recent: Last Vital Signs Temp 98.2 F 03/17/20 07:45 Pulse 66 03/17/20 07:45 Resp 22 H 03/17/20 07:45 BP 145/72 H 03/17/20 09:07 Pulse Ox 91 L 03/17/20 07:45 Weight - Most Recent: 166 lb 1.6 oz I&O - Last 24 Hours: Intake & Output 03/16/20 03/17/20 03/17/20 22:59 06:59 14:59 Intake Total 1810 1750 120 Output Total 950 1300 Balance 860 450 120 Lab Results Last 24 Hours: Laboratory Results - last 24 hr 03/16/20 03/16/20 03/16/20 Range/Units 06:05 12:10 17:08 WBC (4.23-9.07) K/mm3 RBC (4.63-6.08) M/mm3 Hgb (13.7-17.5) gm/dl Hct (40.1-51.0) % MCV (79.0-92.2) fl MCH (25.7-32.2) pg MCHC (32.2-35.5) g/dl RDW Std Deviation (35.1-43.9) fL Plt Count (163-337) K/mm3 MPV (9.4-12.3) fl Neut % (Auto) (34.0-67.9) % Lymph % (Auto) (21.8-53.1) % [place] % (Auto) (5.3-12.2) % Eos % (Auto) (0.8-7.0) Baso % (Auto) (0.1-1.2) % Neut # (Auto) (1.78-5.38) K/mm3 Lymph # (Auto) (1.32-3.57) K/mm3 [place] # (Auto) (0.30-0.82) K/mm3 Eos # (Auto) (0.04-0.54) K/mm3 Baso # (Auto) (0.01-0.08) K/mm3 Sodium (136-145) mEq/L Potassium (3.5-5.1) mEq/L Chloride (98-107) mEq/L Carbon Dioxide (21-32) mEq/L Anion Gap (5-15) BUN (7-18) mg/dL Creatinine (0.7-1.3) mg/dL Est Cr Clr Drug Dosing mL/min Estimated GFR (MDRD) (>60) mL/min BUN/Creatinine Ratio (14-18) Glucose 430 H (83-115) mg/dL POC Glucose 176 H 132 H (83-110) mg/dL Calcium (8.5-10.1) mg/dL Total Bilirubin (0.2-1.0) mg/dL AST (15-37) U/L ALT (16-63) U/L Alkaline Phosphatase (46-116) U/L Total Protein (6.4-8.2) g/dl Albumin (3.4-5.0) g/dl Globulin gm/dL Albumin/Globulin Ratio (1-2) 03/16/20 03/17/20 03/17/20 Range/Units 20:42 04:45 04:45 WBC 9.16 H (4.23-9.07) K/mm3 RBC 3.59 L (4.63-6.08) M/mm3 Hgb 11.5 L (13.7-17.5) gm/dl Hct 33.0 L (40.1-51.0) % MCV 91.9 (79.0-92.2) fl MCH 32.0 (25.7-32.2) pg MCHC 34.8 (32.2-35.5) g/dl RDW Std Deviation 43.6 (35.1-43.9) fL Plt Count 270 (163-337) K/mm3 MPV 10.6 (9.4-12.3) fl Neut % (Auto) 64.3 (34.0-67.9) % Lymph % (Auto) 21.6 L (21.8-53.1) % [place] % (Auto) 12.6 H (5.3-12.2) % Eos % (Auto) 1.3 (0.8-7.0) Baso % (Auto) 0.2 (0.1-1.2) % Neut # (Auto) 5.89 H (1.78-5.38) K/mm3 Lymph # (Auto) 1.98 (1.32-3.57) K/mm3 [place] # (Auto) 1.15 H (0.30-0.82) K/mm3 Eos # (Auto) 0.12 (0.04-0.54) K/mm3 Baso # (Auto) 0.02 (0.01-0.08) K/mm3 Sodium 136 (136-145) mEq/L Potassium 4.4 (3.5-5.1) mEq/L Chloride 105 (98-107) mEq/L Carbon Dioxide 18 L (21-32) mEq/L Anion Gap 17.4 H (5-15) BUN 28 H (7-18) mg/dL Creatinine 2.0 H (0.7-1.3) mg/dL Est Cr Clr Drug Dosing 28.36 mL/min Estimated GFR (MDRD) 33 (>60) mL/min BUN/Creatinine Ratio 14.0 (14-18) Glucose 202 H (83-115) mg/dL POC Glucose 173 H (83-110) mg/dL Calcium 9.2 (8.5-10.1) mg/dL Total Bilirubin 0.5 (0.2-1.0) mg/dL AST 9 L (15-37) U/L ALT 14 L (16-63) U/L Alkaline Phosphatase 62 (46-116) U/L Total Protein 6.7 (6.4-8.2) g/dl Albumin 2.9 L (3.4-5.0) g/dl Globulin 3.8 gm/dL Albumin/Globulin Ratio 0.8 L (1-2) 03/17/ Range/Units 06:14 WBC (4.23-9.07) K/mm3 RBC (4.63-6.08) M/mm3 Hgb (13.7-17.5) gm/dl Hct (40.1-51.0) % MCV (79.0-92.2) fl MCH (25.7-32.2) pg MCHC (32.2-35.5) g/dl RDW Std Deviation (35.1-43.9) fL Plt Count (163-337) K/mm3 MPV (9.4-12.3) fl Neut % (Auto) (34.0-67.9) % Lymph % (Auto) (21.8-53.1) % [place] % (Auto) (5.3-12.2) % Eos % (Auto) (0.8-7.0) Baso % (Auto) (0.1-1.2) % Neut # (Auto) (1.78-5.38) K/mm3 Lymph # (Auto) (1.32-3.57) K/mm3 [place] # (Auto) (0.30-0.82) K/mm3 Eos # (Auto) (0.04-0.54) K/mm3 Baso # (Auto) (0.01-0.08) K/mm3 Sodium (136-145) mEq/L Potassium (3.5-5.1) mEq/L Chloride (98-107) mEq/L Carbon Dioxide (21-32) mEq/L Anion Gap (5-15) BUN (7-18) mg/dL Creatinine (0.7-1.3) mg/dL Est Cr Clr Drug Dosing mL/min Estimated GFR (MDRD) (>60) mL/min BUN/Creatinine Ratio (14-18) Glucose (83-115) mg/dL POC Glucose 213 H (83-110) mg/dL Calcium (8.5-10.1) mg/dL Total Bilirubin (0.2-1.0) mg/dL AST (15-37) U/L ALT (16-63) U/L Alkaline Phosphatase (46-116) U/L Total Protein (6.4-8.2) g/dl Albumin (3.4-5.0) g/dl Globulin gm/dL Albumin/Globulin Ratio (1-2) Rod Results Last 24 Hours: Microbiology 03/15/20 16:01 Urine Culture - Preliminary Urine, Holt Cath ([place]) Gram Positive Cocci Med Orders - Current: Current Medications Acetaminophen (Tylenol) 650 mg PO Q4H PRN PRN Reason: Pain (Mild 1-3)/fever Last Admin: 03/16/20 07:52 Dose: 650 mg Documented by: Amlodipine Besylate (Norvasc) 10 mg PO DAILY [facility] Last Admin: 03/17/20 09:07 Dose: 10 mg Documented by: Aspirin (Halfprin) 81 mg PO DAILY [facility] Last Admin: 03/17/20 09:05 Dose: 81 mg Documented by: Clopidogrel Bisulfate (Plavix) 75 mg PO DAILY [facility] Last Admin: 03/17/20 09:09 Dose: 75 mg Documented by: Docusate Sodium (Colace) 100 mg PO BID PRN PRN Reason: Constipation Finasteride (Proscar) 5 mg PO BEDTIME [facility] Last Admin: 03/16/20 20:39 Dose: 5 mg Documented by: Heparin Sodium (Porcine) (Heparin Sodium) 5,000 units SUBCUT Q8H [facility] Last Admin: 03/17/20 06:11 Dose: 5,000 units Documented by: Sodium Chloride (Normal Saline) 1,000 mls @ 75 mls/hr IV ASDIRECTED [facility] Last Admin: 03/17/20 03:14 Dose: 75 mls/hr Documented by: Ceftriaxone Sodium 1 gm/ (Sodium Chloride) 100 mls @ 200 mls/hr IV Q24H [facility] Last Admin: 03/16/20 15:53 Dose: 200 mls/hr Documented by: Vancomycin HCl 1 gm/Vancomycin HCl 500 mg/ Sodium Chloride 500 mls @ 250 mls/hr IV ONETIME ONE Stop: 03/17/20 12:29 Vancomycin HCl 1 gm/ Sodium (Chloride) 250 mls @ 250 mls/hr IV Q24H [facility] Insulin Human Lispro (Humalog) 0 unit SUBCUT TIDAC [facility]; Protocol Last Admin: 03/17/20 09:06 Dose: 4 units Documented by: Miscellaneous Information (Remove Patch) 1 ea TRDERM DAILY [facility] Last Admin: 03/17/20 09:12 Dose: Not Given Documented by: Nicotine (Habitrol) 21 mg TRDERM DAILY [facility] Last Admin: 03/17/20 09:10 Dose: Not Given Documented by: Trazodone 100mgOwn (Med) 1 each PO BEDTIME [facility] Last Admin: 03/16/20 20:40 Dose: 1 each Documented by: Lisinopril/Hydrochlorothiazide [Lisinopril-Hctz 20- 25 MgOwn Med 1 each PO DAILY [facility] Last Admin: 03/17/20 09:09 Dose: 1 each Documented by: Metoprolol Succinate (100 MgOwn Med) 50 mg PO DAILY [facility] Last Admin: 03/17/20 09:08 Dose: 50 mg Documented by: Ondansetron HCl (Zofran Odt) 4 mg PO Q4H PRN PRN Reason: nausea, able to take PO Oxycodone HCl (Oxycodone) 5 mg PO Q4H PRN PRN Reason: Pain (moderate 4-6) Last Admin: 03/16/20 07:54 Dose: 5 mg Documented by: Sodium Chloride (Saline Flush) 10 ml FLUSH ASDIRECTED PRN PRN Reason: Keep Vein Open Last Admin: 03/15/20 16:40 Dose: 10 ml Documented by: Tamsulosin HCl (Flomax) 0.4 mg PO PCBREAKFAST [facility] Last Admin: 03/17/20 09:10 Dose: 0.4 mg Documented by: Vancomycin HCl (Pharmacy To Dose - Vancomycin) 1 dose .XX ASDIRECTED PRN PRN Reason: RX TO DOSE VANCO Discontinued Medications Clopidogrel Bisulfate (Plavix) 75 mg PO DAILY [facility] Last Admin: 03/16/20 08:55 Dose: 75 mg Documented by: Sodium Chloride (Normal Saline) 1,000 mls @ 150 mls/hr IV NOW STA Stop: 03/15/20 22:41 Last Admin: 03/15/20 16:40 Dose: 150 mls/hr Documented by: Ceftriaxone Sodium 2 gm/ (Sodium Chloride) 100 mls @ 200 mls/hr IV ONETIME ONE Stop: 03/15/20 16:31 Last Admin: 03/15/20 16:38 Dose: 200 mls/hr Documented by: Magnesium Sulfate (Magnesium Sulfate In Water Premix) 2 gm in 50 mls @ 25 mls/hr IV ONETIME ONE Stop: 03/16/20 19:21 Last Admin: 03/16/20 18:00 Dose: 25 mls/hr Documented by: Insulin Human Lispro (Humalog) 8 unit SUBCUT ONETIME ONE Stop: 03/15/20 16:45 Last Admin: 03/15/20 16:59 Dose: 8 unit Documented by: Insulin Human Lispro (Humalog) 0 unit SUBCUT [facility]; Protocol Last Admin: 03/16/20 18:40 Dose: Not Given Documented by: Insulin Human Lispro (Humalog) 4 unit SUBCUT ONETIME ONE Stop: 03/16/20 13:34 Last Admin: 03/16/20 14:38 Dose: Not Given Documented by: [facility]ulin [facility] Insulin Human Regular (Humulin R) [facility]; Protocol Last Admin: 03/15/20 21:29 Dose: 8 unit Documented by: Morphine Sulfate (Morphine) 2 mg IVPUSH Q2H PRN PRN Reason: Pain (severe 7-10) Stop: 03/16/20 17:28 Tamsulosin HCl ([facility]omax) [facility] Last Admin: 03/16/20 09:01 Dose: 0.4 mg Documented by: Temazepam (Restoril) 7.5 mg PO BEDTIME PRN PRN Reason: Sleep Trazodone HCl (Trazodone) 50 mg PO BEDTIME PRN PRN Reason: Insomnia Last Admin: 03/15/20 23:16 Dose: 50 mg Documented by: - Exam General: Alert, Oriented HEENT: Pupils Equal, Mucous Membr. Moist/[place] Neck: Supple Lungs: Clear to Auscultation, Normal Respiratory Effort Cardiovascular: Regular Rate, Regular Rhythm GI/Abdominal Exam: Normal Bowel Sounds, Soft, Non-Tender, No Organomegaly, No Distention, No Abnormal Bruit Peripheral Pulses: 2+: Posterior Tibial (L), Posterior Tibial (R), Dorsalis Pedis (L), Dorsalis Pedis (R) Skin: Warm, Dry, Intact Psy/Mental Status: Alert, Normal Affect, Normal Mood Sepsis Event Note - Evaluation Sepsis Screening Result: No Definite Risk - Focused Exam Vital Signs: Vital Signs Temp Pulse Resp BP Pulse Ox 03/17/20 09:07 145/72 H 03/17/20 07:45 98.2 F 66 22 H 145/72 H 91 L 03/17/20 03:17 98.6 F 67 20 135/51 L 90 L 03/17/20 00:18 98.2 F 72 18 123/95 H 98 - Problem List & Annotations (1) Complicated UTI (urinary tract infection) SNOMED Code(s): 90475892 Code(s): N39.0 - URINARY TRACT INFECTION, SITE NOT SPECIFIED Status: Acute Current Visit: Yes (2) Acute renal failure SNOMED Code(s): 98041435 Code(s): N17.9 - ACUTE KIDNEY FAILURE, UNSPECIFIED Status: Acute Priority: High Current Visit: Yes Qualifiers: Acute renal failure type: unspecified Qualified Code(s): N17.9 - Acute kidney failure, unspecified (3) Obstructive nephropathy due to benign prostatic hyperplasia SNOMED Code(s): 196038550 Code(s): N40.1 - BENIGN PROSTATIC HYPERPLASIA WITH LOWER URINARY TRACT SYMP; N13.8 - OTHER OBSTRUCTIVE AND REFLUX UROPATHY Status: Acute Priority: High Current Visit: Yes (4) Diabetes mellitus type 2 with complications, uncontrolled SNOMED Code(s): 61985413, 156447964 Code(s): E11.8 - TYPE 2 DIABETES MELLITUS WITH UNSPECIFIED COMPLICATIONS; E11.65 - TYPE 2 DIABETES MELLITUS WITH HYPERGLYCEMIA Status: Chronic Priority: Medium Current Visit: Yes (5) Hypertension SNOMED Code(s): 20330598 Code(s): I10 - ESSENTIAL (PRIMARY) HYPERTENSION Status: Chronic Priority: High Current Visit: Yes Qualifiers: Hypertension type: essential hypertension Qualified Code(s): I10 - Essential (primary) hypertension - Problem List Review Problem List Initiated/Reviewed/Updated: Yes - My Orders Last 24 Hours: My Active Orders 03/17/20 04:45 PROCALCITONIN [REF] Routine 03/17/20 09:15 Pharmacy to Dose - Vancomycin 1 dose .XX ASDIRECTED PRN 03/17/20 10:30 Vancomycin 1 gm Vancomycin 500 mg Sodium Chloride 0.9% [Normal Saline] 500 ml IV ONETIME 03/18/20 10:30 Vancomycin [Vancocin] 1 gm Sodium Chloride 0.9% [Normal Saline (AdvBag)] 250 ml IV Q24H 03/19/20 09:30 VANCOMYCIN TROUGH [CHEM] Timed - Plan Plan:: The patient is a 74-year-old gentleman who has been admitted secondary to obstructive uropathy. The patient had Holt catheter placed in the emergency department which had resulted in 1600 cc of urine. The patient will also be treated for urinary tract infection with the use of Rocephin 1 g IV daily due to his current depressed renal function. The combination of hypertension and diabetes that is poorly controlled is likely that the patient's renal function is depressed to the point that this is chronic kidney disease stage III. Will monitor with fluids. The patient is a diabetic and his A1c is at 12.2% which indicates poorly controlled. I discussed this with the patient. The patient will also be kept on appropriate carb constant diet as well as insulin to help control his blood sugars in hospital. The patient is a smoker and he will be given nicotine patches as necessary to help to help with his addiction symptoms. PSA was not completed as this would be elevated regardless. The patient has been started on Flomax and finasteride and both of these will be continued upon discharge. The patient is also to follow-up with urology and likely will go home with a Holt catheter. The patient will also be continued on his home antihypertensive medications. His vital signs will be monitored. 03/16/2020 The patient is a 74-year-old gentleman who is doing better today. He still has a Holt catheter for his obstructive uropathy. The patient is also on Rocephin 1 g IV daily for urinary tract infection. The organism has been tentatively identified as E. coli with sensitivities pending. The patient also has had some improvement in his EGFR which is now at 22.6 mL/min. The patient's medications will continue to be renally dosed. He is also scheduled for nurse informatics educator. The patient will need to follow-up with urology upon discharge and he will likely go home with catheter due to his severe prostatomegaly. The patient has been encouraged to ambulate. He will be continued on his diabetic diet with insulin to help with his hyperglycemia. 03/17/2020 74-year-old male being treated for complicated UTI and obstructive uropathy. Patient has Streptococcus epidermidis growing in his urine which is resistant to Rocephin and sensitive to vancomycin and Bactrim. Patient will be switched over to vancomycin for 2 days and then oral Bactrim. He has had a 3-1/2 pound weight gain. Anion gap is still at 17.4 and his bicarb is 15. IV fluids currently are normal saline running at 75 mL an hour this will be switched to D5 LR. Likely discharge in 2 days assuming improvement in his acidosis with the change in antibiotics. Patient will need an outpatient referral for urology and will go home with his Holt. Continue close observation and treatment of his blood sugars. Start Lantus 15 units at bedtime and prandial fast acting insulin 5 units with each meal with sliding scale
[2020-03-17] MEDS: Dextrose 5%-Lactated Ringers 1,000 ML IV SCH (16:49)
[2020-03-17] MEDS: Finasteride 5 MG Tab PO SCH (21:05)
[2020-03-17] MEDS: traZODone 50 MG Tab PO SCH (21:06)
[2020-03-17] MEDS: Insulin Glarg,Human.Rec.Analog 100 Unit/ML SUBCUT SCH (21:06)
[2020-03-18] MEDS: Heparin Sodium 5,000 Units/ML Vial SUBCUT SCH ×3 (06:37→21:23)
[2020-03-18] MEDS: Dextrose 5%-Lactated Ringers 1,000 ML IV SCH (07:32)
[2020-03-18] MEDS: Tamsulosin 0.4 MG Cap.ER PO SCH (08:26)
[2020-03-18] MEDS: amLODIPine 10 MG Tab PO SCH (08:26)
[2020-03-18] MEDS: Metoprolol Succinate 50 MG Tab.ER PO SCH (08:29)
[2020-03-18] MEDS: Hydrochlorothiazide 25 MG Tab PO SCH (08:29)
[2020-03-18] MEDS: Clopidogrel 75 MG Tab PO SCH (08:30)
[2020-03-18] MEDS: Aspirin 81 MG Tab.EC PO SCH (08:30)
[2020-03-18] MEDS: Simvastatin 20 MG Tab PO SCH (08:30)
[2020-03-18] MEDS: Lisinopril 20 MG Tab PO SCH (08:30)
[2020-03-18] MEDS: Nicotine 21 MG/24 Hr Patch TRDERM SCH (08:31)
[2020-03-18] MEDS ORDERED: PRAVASTATIN 80 MG PO SCH (09:00)
--- NOTE | 2020-03-18 13:16 | PCM.PN ---
- General Info Date of Service: 03/18/20 Admission Dx/Problem (Free Text): Acute urinary retention with obstructive nephropathy Subjective Update: Patient's appetite is good and he has been afebrile. He has no complaints other than he is ready to go home. Functional Status: Reports: Pain Controlled - Review of Systems General: Reports: No Symptoms HEENT: Reports: No Symptoms Pulmonary: Reports: No Symptoms Cardiovascular: Reports: No Symptoms Gastrointestinal: Reports: No Symptoms Musculoskeletal: Reports: No Symptoms - Patient Data Vitals - Most Recent: Last Vital Signs Temp 97.5 F 03/18/20 11:11 Pulse 56 L 03/18/20 11:11 Resp 16 03/18/20 08:28 BP 146/48 H 03/18/20 11:11 Pulse Ox 100 03/18/20 11:11 Weight - Most Recent: 166 lb 11.2 oz I&O - Last 24 Hours: Intake & Output 03/17/20 03/18/20 03/18/20 22:59 06:59 14:59 Intake Total 2891 1016 360 Output Total 1600 2150 Balance 1291 -1134 360 Lab Results Last 24 Hours: Laboratory Results - last 24 hr 03/17/20 03/17/20 03/17/20 Range/Units 04:45 17:04 20:58 WBC (4.23-9.07) K/mm3 RBC (4.63-6.08) M/mm3 Hgb (13.7-17.5) gm/dl Hct (40.1-51.0) % MCV (79.0-92.2) fl MCH (25.7-32.2) pg MCHC (32.2-35.5) g/dl RDW Std Deviation (35.1-43.9) fL Plt Count (163-337) K/mm3 MPV (9.4-12.3) fl Neut % (Auto) (34.0-67.9) % Lymph % (Auto) (21.8-53.1) % [place] % (Auto) (5.3-12.2) % Eos % (Auto) (0.8-7.0) Baso % (Auto) (0.1-1.2) % Neut # (Auto) (1.78-5.38) K/mm3 Lymph # (Auto) (1.32-3.57) K/mm3 [place] # (Auto) (0.30-0.82) K/mm3 Eos # (Auto) (0.04-0.54) K/mm3 Baso # (Auto) (0.01-0.08) K/mm3 Sodium (136-145) mEq/L Potassium (3.5-5.1) mEq/L Chloride (98-107) mEq/L Carbon Dioxide (21-32) mEq/L Anion Gap (5-15) BUN (7-18) mg/dL Creatinine (0.7-1.3) mg/dL Est Cr Clr Drug Dosing mL/min Estimated GFR (MDRD) (>60) mL/min BUN/Creatinine Ratio (14-18) Glucose (83-115) mg/dL POC Glucose 157 H 148 H (83-110) mg/dL Calcium (8.5-10.1) mg/dL Magnesium (1.8-2.4) mg/dl Total Bilirubin (0.2-1.0) mg/dL AST (15-37) U/L ALT (16-63) U/L Alkaline Phosphatase (46-116) U/L C-Reactive Protein (<1.0) mg/dL Total Protein (6.4-8.2) g/dl Albumin (3.4-5.0) g/dl Globulin gm/dL Albumin/Globulin Ratio (1-2) Procalcitonin 0.24 H ng/mL 03/18/20 03/18/20 03/18/20 Range/Units 06:41 10:20 10:20 WBC 8.91 (4.23-9.07) K/mm3 RBC 3.58 L (4.63-6.08) M/mm3 Hgb 11.0 L (13.7-17.5) gm/dl Hct 33.9 L (40.1-51.0) % MCV 94.7 H (79.0-92.2) fl MCH 30.7 (25.7-32.2) pg MCHC 32.4 (32.2-35.5) g/dl RDW Std Deviation 44.4 H (35.1-43.9) fL Plt Count 308 (163-337) K/mm3 MPV 9.9 (9.4-12.3) fl Neut % (Auto) 66.6 (34.0-67.9) % Lymph % (Auto) 18.3 L (21.8-53.1) % [place] % (Auto) 12.2 (5.3-12.2) % Eos % (Auto) 2.2 (0.8-7.0) Baso % (Auto) 0.4 (0.1-1.2) % Neut # (Auto) 5.92 H (1.78-5.38) K/mm3 Lymph # (Auto) 1.63 (1.32-3.57) K/mm3 [place] # (Auto) 1.09 H (0.30-0.82) K/mm3 Eos # (Auto) 0.20 (0.04-0.54) K/mm3 Baso # (Auto) 0.04 (0.01-0.08) K/mm3 Sodium 139 (136-145) mEq/L Potassium 4.3 (3.5-5.1) mEq/L Chloride 106 (98-107) mEq/L Carbon Dioxide 22 (21-32) mEq/L Anion Gap 15.3 H (5-15) BUN 18 (7-18) mg/dL Creatinine 1.8 H (0.7-1.3) mg/dL Est Cr Clr Drug Dosing 31.51 mL/min Estimated GFR (MDRD) 37 (>60) mL/min BUN/Creatinine Ratio 10.0 L (14-18) Glucose 226 H (83-115) mg/dL POC Glucose 257 H (83-110) mg/dL Calcium 9.5 (8.5-10.1) mg/dL Magnesium 1.8 (1.8-2.4) mg/dl Total Bilirubin 0.3 (0.2-1.0) mg/dL AST 9 L (15-37) U/L ALT 13 L (16-63) U/L Alkaline Phosphatase 66 (46-116) U/L C-Reactive Protein 7.8 H* (<1.0) mg/dL Total Protein 6.6 (6.4-8.2) g/dl Albumin 2.8 L (3.4-5.0) g/dl Globulin 3.8 gm/dL Albumin/Globulin Ratio 0.7 L (1-2) Procalcitonin ng/mL 03/18/20 Range/Units 11:16 WBC (4.23-9.07) K/mm3 RBC (4.63-6.08) M/mm3 Hgb (13.7-17.5) gm/dl Hct (40.1-51.0) % MCV (79.0-92.2) fl MCH (25.7-32.2) pg MCHC (32.2-35.5) g/dl RDW Std Deviation (35.1-43.9) fL Plt Count (163-337) K/mm3 MPV (9.4-12.3) fl Neut % (Auto) (34.0-67.9) % Lymph % (Auto) (21.8-53.1) % [place] % (Auto) (5.3-12.2) % Eos % (Auto) (0.8-7.0) Baso % (Auto) (0.1-1.2) % Neut # (Auto) (1.78-5.38) K/mm3 Lymph # (Auto) (1.32-3.57) K/mm3 [place] # (Auto) (0.30-0.82) K/mm3 Eos # (Auto) (0.04-0.54) K/mm3 Baso # (Auto) (0.01-0.08) K/mm3 Sodium (136-145) mEq/L Potassium (3.5-5.1) mEq/L Chloride (98-107) mEq/L Carbon Dioxide (21-32) mEq/L Anion Gap (5-15) BUN (7-18) mg/dL Creatinine (0.7-1.3) mg/dL Est Cr Clr Drug Dosing mL/min Estimated GFR (MDRD) (>60) mL/min BUN/Creatinine Ratio (14-18) Glucose (83-115) mg/dL POC Glucose 232 H (83-110) mg/dL Calcium (8.5-10.1) mg/dL Magnesium (1.8-2.4) mg/dl Total Bilirubin (0.2-1.0) mg/dL AST (15-37) U/L ALT (16-63) U/L Alkaline Phosphatase (46-116) U/L C-Reactive Protein (<1.0) mg/dL Total Protein (6.4-8.2) g/dl Albumin (3.4-5.0) g/dl Globulin gm/dL Albumin/Globulin Ratio (1-2) Procalcitonin ng/mL Rod Results Last 24 Hours: Microbiology 03/15/20 16:01 Urine Culture - Final Urine, Holt Cath ([place]) Staphylococcus Epidermidis Med Orders - Current: Current Medications Acetaminophen (Tylenol) 650 mg PO Q4H PRN PRN Reason: Pain (Mild 1-3)/fever Last Admin: 03/16/20 07:52 Dose: 650 mg Documented by: Alogliptin Benzoate (Alogliptin) 12.5 mg PO DAILY [facility] Last Admin: 03/18/20 08:25 Dose: 12.5 mg Documented by: Amlodipine Besylate (Norvasc) 10 mg PO DAILY [facility] Last Admin: 03/18/20 08:26 Dose: 10 mg Documented by: Aspirin (Halfprin) 81 mg PO DAILY [facility] Last Admin: 03/18/20 08:30 Dose: 81 mg Documented by: Clopidogrel Bisulfate (Plavix) 75 mg PO DAILY [facility] Last Admin: 03/18/20 08:30 Dose: 75 mg Documented by: Docusate Sodium (Colace) 100 mg PO BID PRN PRN Reason: Constipation Finasteride (Proscar) 5 mg PO BEDTIME [facility] Last Admin: 03/17/20 21:05 Dose: 5 mg Documented by: Heparin Sodium (Porcine) (Heparin Sodium) 5,000 units SUBCUT Q8H [facility] Last Admin: 03/18/20 13:10 Dose: 5,000 units Documented by: Hydrochlorothiazide (Hydrochlorothiazide) 25 mg PO DAILY [facility] Last Admin: 03/18/20 08:29 Dose: 25 mg Documented by: Vancomycin HCl 1 gm/ Sodium (Chloride) 250 mls @ 250 mls/hr IV Q24H [facility] Last Admin: 03/18/20 09:49 Dose: 250 mls/hr Documented by: Dextrose/Lactated Ringer's (Dextrose 5%-Lactated Ringers) 1,000 mls @ 75 mls/hr IV ASDIRECTED [facility] Last Admin: 03/18/20 07:32 Dose: 75 mls/hr Documented by: Insulin Glargine (Lantus) 15 unit SUBCUT BEDTIME [facility] Last Admin: 03/17/20 21:06 Dose: 15 unit Documented by: Insulin Human Lispro (Humalog) 0 unit SUBCUT TIDAC [facility]; Protocol Last Admin: 03/18/20 11:58 Dose: 4 units Documented by: Insulin Human Lispro (Humalog) 5 unit SUBCUT TIDAC [facility] Last Admin: 03/18/20 11:59 Dose: 5 units Documented by: Lisinopril (Prinivil) 20 mg PO DAILY [facility] Last Admin: 03/18/20 08:30 Dose: 20 mg Documented by: Metoprolol Succinate (Toprol Xl) 50 mg PO DAILY [facility] Last Admin: 03/18/20 08:29 Dose: 50 mg Documented by: Miscellaneous Information (Remove Patch) 1 ea TRDERM DAILY [facility] Last Admin: 03/18/20 08:31 Dose: Not Given Documented by: Nicotine (Habitrol) 21 mg TRDERM DAILY [facility] Last Admin: 03/18/20 08:31 Dose: Not Given Documented by: Ondansetron HCl (Zofran Odt) 4 mg PO Q4H PRN PRN Reason: nausea, able to take PO Oxycodone HCl (Oxycodone) 5 mg PO Q4H PRN PRN Reason: Pain (moderate 4-6) Last Admin: 03/16/20 07:54 Dose: 5 mg Documented by: Simvastatin (Zocor) 20 mg PO DAILY [facility] Last Admin: 03/18/20 08:30 Dose: 20 mg Documented by: Sodium Chloride (Saline Flush) 10 ml FLUSH ASDIRECTED PRN PRN Reason: Keep Vein Open Last Admin: 03/15/20 16:40 Dose: 10 ml Documented by: Tamsulosin HCl (Flomax) 0.4 mg PO DAILY [facility] Last Admin: 03/18/20 08:26 Dose: 0.4 mg Documented by: Trazodone HCl (Trazodone) 100 mg PO BEDTIME [facility] Last Admin: 03/17/20 21:06 Dose: 100 mg Documented by: Vancomycin HCl (Pharmacy To Dose - Vancomycin) 1 dose .XX ASDIRECTED PRN PRN Reason: RX TO DOSE VANCO Discontinued Medications Amlodipine Besylate (Norvasc) 10 mg PO DAILY [facility] Last Admin: 03/17/20 09:07 Dose: 10 mg Documented by: Clopidogrel Bisulfate (Plavix) 75 mg PO DAILY [facility] Last Admin: 03/16/20 08:55 Dose: 75 mg Documented by: Clopidogrel Bisulfate (Plavix) 75 mg PO DAILY [facility] Last Admin: 03/17/20 09:09 Dose: 75 mg Documented by: Sodium Chloride (Normal Saline) 1,000 mls @ 150 mls/hr IV NOW STA Stop: 03/15/20 22:41 Last Admin: 03/15/20 16:40 Dose: 150 mls/hr Documented by: Ceftriaxone Sodium 2 gm/ (Sodium Chloride) 100 mls @ 200 mls/hr IV ONETIME ONE Stop: 03/15/20 16:31 Last Admin: 03/15/20 16:38 Dose: 200 mls/hr Documented by: Sodium Chloride (Normal Saline) 1,000 mls @ 75 mls/hr IV ASDIRECTED [facility] Last Admin: 03/17/20 03:14 Dose: 75 mls/hr Documented by: Ceftriaxone Sodium 1 gm/ (Sodium Chloride) 100 mls @ 200 mls/hr IV Q24H [facility] Last Admin: 03/16/20 15:53 Dose: 200 mls/hr Documented by: Magnesium Sulfate (Magnesium Sulfate In Water Premix) 2 gm in 50 mls @ 25 mls/hr IV ONETIME ONE Stop: 03/16/20 19:21 Last Admin: 03/16/20 18:00 Dose: 25 mls/hr Documented by: Vancomycin HCl 1 gm/Vancomycin HCl 500 mg/ Sodium Chloride 500 mls @ 250 mls/hr IV ONETIME ONE Stop: 03/17/20 12:29 Last Admin: 03/17/20 11:29 Dose: 250 mls/hr Documented by: Insulin Human Lispro (Humalog) 8 unit SUBCUT ONETIME ONE Stop: 03/15/20 16:45 Last Admin: 03/15/20 16:59 Dose: 8 unit Documented by: Insulin Human Lispro (Humalog) 0 unit SUBCUT [facility]; Protocol Last Admin: 03/16/20 18:40 Dose: Not Given Documented by: Insulin Human Lispro (Humalog) 4 unit SUBCUT ONETIME ONE Stop: 03/16/20 13:34 Last Admin: 03/16/20 14:38 Dose: Not Given Documented by: Insulin Human Lispro (Humalog) 0 unit SUBCUT [facility]; Protocol Insulin Human Regular (Humulin R) 0 unit SUBCUT [facility]; Protocol Last Admin: 03/15/20 21:29 Dose: 8 unit Documented by: Morphine Sulfate (Morphine) 2 mg IVPUSH Q2H PRN PRN Reason: Pain (severe 7-10) Stop: 03/16/20 17:28 Trazodone 100mgOwn (Med) 1 each PO BEDTIME [facility] Last Admin: 03/16/20 20:40 Dose: 1 each Documented by: Lisinopril/Hydrochlorothiazide [Lisinopril-Hctz 20- 25 MgOwn Med 1 each PO DAILY [facility] Last Admin: 03/17/20 09:09 Dose: 1 each Documented by: Metoprolol Succinate (100 MgOwn Med) 50 mg PO DAILY [facility] Last Admin: 03/17/20 09:08 Dose: 50 mg Documented by: Pravastatin 80 Mg (Ptom) 80 mg PO DAILY [facility] Tamsulosin HCl (Flomax) [facility].[address] [facility] Last Admin: 03/16/20 09:01 Dose: 0.4 mg Documented by: Tamsulosin HCl (Flomax) 0.[address] [facility] Last Admin: 03/17/20 09:10 Dose: 0.4 mg Documented by: Temazepam (Restoril) 7.5 mg PO BEDTIME PRN PRN Reason: Sleep Trazodone HCl (Trazodone) 50 mg PO BEDTIME PRN PRN Reason: Insomnia Last Admin: 03/15/20 23:16 Dose: 50 mg Documented by: - Exam Quality Assessment: No: Supplemental Oxygen General: Alert, Oriented HEENT: Pupils Equal, Mucous Membr. Moist/[place] Neck: Supple Lungs: Clear to Auscultation, Normal Respiratory Effort Cardiovascular: Regular Rate, Regular Rhythm GI/Abdominal Exam: Normal Bowel Sounds, Soft, Non-Tender, No Distention, No Abnormal Bruit Extremities: Normal Inspection, Normal Range of Motion, Non-Tender, No Pedal Edema, Normal Capillary Refill Psy/Mental Status: Alert, Normal Affect, Normal Mood Sepsis Event Note - Evaluation Sepsis Screening Result: No Definite Risk - Focused Exam Vital Signs: Vital Signs Temp Temp Pulse Pulse Resp BP BP 03/18/20 11:11 97.5 F 56 L 146/48 H 03/18/20 09:57 148/69 H 03/18/20 08:30 162/58 H 03/18/20 08:29 75 162/58 H 03/18/20 08:28 98.2 F 75 16 162/58 H 03/18/20 08:26 162/58 H 03/18/20 03:29 98.2 F 75 17 164/70 H Pulse Ox 03/18/20 11:11 100 03/18/20 09:57 03/18/20 08:30 03/18/20 08:29 03/18/20 08:28 97 03/18/20 08:26 03/18/20 03:29 95 - Problem List & Annotations (1) Complicated UTI (urinary tract infection) SNOMED Code(s): 16001690 Code(s): N39.0 - URINARY TRACT INFECTION, SITE NOT SPECIFIED Status: Acute Current Visit: Yes (2) Acute renal failure SNOMED Code(s): 42312976 Code(s): N17.9 - ACUTE KIDNEY FAILURE, UNSPECIFIED Status: Acute Priority: High Current Visit: Yes Qualifiers: Acute renal failure type: unspecified Qualified Code(s): N17.9 - Acute kidney failure, unspecified (3) Obstructive nephropathy due to benign prostatic hyperplasia SNOMED Code(s): 299480255 Code(s): N40.1 - BENIGN PROSTATIC HYPERPLASIA WITH LOWER URINARY TRACT SYMP; N13.8 - OTHER OBSTRUCTIVE AND REFLUX UROPATHY Status: Acute Priority: High Current Visit: Yes (4) Diabetes mellitus type 2 with complications, uncontrolled SNOMED Code(s): 16439735, 008626282 Code(s): E11.8 - TYPE 2 DIABETES MELLITUS WITH UNSPECIFIED COMPLICATIONS; E11.65 - TYPE 2 DIABETES MELLITUS WITH HYPERGLYCEMIA Status: Chronic Priority: Medium Current Visit: Yes (5) Hypertension SNOMED Code(s): 23938343 Code(s): I10 - ESSENTIAL (PRIMARY) HYPERTENSION Status: Chronic Priority: High Current Visit: Yes Qualifiers: Hypertension type: essential hypertension Qualified Code(s): I10 - Essential (primary) hypertension - Problem List Review Problem List Initiated/Reviewed/Updated: Yes - My Orders Last 24 Hours: My Active Orders 03/17/20 12:56 Diabetes Education [RC] .PRN 03/17/20 13:00 Dextrose 5%-Lactated Ringers 1,000 ml IV ASDIRECTED 03/17/20 17:00 Insulin Lispro [HumaLOG] 5 unit SUBCUT TIDAC 03/17/20 21:00 Insulin Glarg,Human.Rec.Analog [LantUS] 15 unit SUBCUT BEDTIME 03/18/20 09:00 Alogliptin Benzoate [Alogliptin] 12.5 mg PO DAILY Simvastatin [Zocor] 20 mg PO DAILY lisinopriL [Prinivil] 20 mg PO DAILY 03/18/20 10:30 Vancomycin [Vancocin] 1 gm Sodium Chloride 0.9% [Normal Saline (AdvBag)] 250 ml IV Q24H 03/19/20 09:30 VANCOMYCIN TROUGH [CHEM] Timed - Plan Plan:: The patient is a 74-year-old gentleman who has been admitted secondary to obstructive uropathy. The patient had Holt catheter placed in the emergency department which had resulted in 1600 cc of urine. The patient will also be treated for urinary tract infection with the use of Rocephin 1 g IV daily due to his current depressed renal function. The combination of hypertension and diabetes that is poorly controlled is likely that the patient's renal function is depressed to the point that this is chronic kidney disease stage III. Will monitor with fluids. The patient is a diabetic and his A1c is at 12.2% which indicates poorly controlled. I discussed this with the patient. The patient will also be kept on appropriate carb constant diet as well as insulin to help control his blood sugars in hospital. The patient is a smoker and he will be given nicotine patches as necessary to help to help with his addiction symptoms. PSA was not completed as this would be elevated regardless. The patient has been started on Flomax and finasteride and both of these will be continued upon discharge. The patient is also to follow-up with urology and likely will go home with a Holt catheter. The patient will also be continued on his home antihypertensive medications. His vital signs will be monitored. 03/16/2020 The patient is a 74-year-old gentleman who is doing better today. He still has a Holt catheter for his obstructive uropathy. The patient is also on Rocephin 1 g IV daily for urinary tract infection. The organism has been tentatively identified as E. coli with sensitivities pending. The patient also has had some improvement in his EGFR which is now at 22.6 mL/min. The patient's medications will continue to be renally dosed. He is also scheduled for processing supervisor. The patient will need to follow-up with urology upon discharge and he will likely go home with catheter due to his severe prostatomegaly. The patient has been encouraged to ambulate. He will be continued on his diabetic diet with i nsulin to help with his hyperglycemia. 03/17/2020 74-year-old male being treated for complicated UTI and obstructive uropathy. Patient has Streptococcus epidermidis growing in his urine which is resistant to Rocephin and sensitive to vancomycin and Bactrim. Patient will be switched over to vancomycin for 2 days and then oral Bactrim. He has had a 3-1/2 pound weight gain. Anion gap is still at 17.4 and his bicarb is 15. IV fluids currently are normal saline running at 75 mL an hour this will be switched to D5 LR. Likely discharge in 2 days assuming improvement in his acidosis with the change in antibiotics. Patient will need an outpatient referral for urology and will go home with his Holt. Continue close observation and treatment of his blood sugars. Start Lantus 15 units at bedtime and prandial fast acting insulin 5 units with each meal with sliding scale 03/18/2020
[2020-03-18] MEDS: oxyCODONE 5 MG Tab PO PRN ×2 (17:32→21:24)
[2020-03-18] MEDS: Insulin Glarg,Human.Rec.Analog 100 Unit/ML SUBCUT SCH (21:22)
[2020-03-18] MEDS: traZODone 50 MG Tab PO SCH (21:23)
[2020-03-18] MEDS: Finasteride 5 MG Tab PO SCH (21:24)
[2020-03-19] MEDS: Heparin Sodium 5,000 Units/ML Vial SUBCUT SCH ×3 (06:26→21:50)
--- NOTE | 2020-03-19 07:58 | PCM.PN ---
- General Info Date of Service: 03/19/20 Admission Dx/Problem (Free Text): Acute urinary retention with obstructive nephropathy Subjective Update: The patient is a 74-year-old gentleman who was admitted by me to acute hospitalization on March 15, 2020 due to acute UTI and urinary retention with prostatomegaly. The patient has a Holt catheter in place. The patient has denied any pain today. The patient also has been tolerating his diet. He has no other complaints today. Functional Status: Reports: Pain Controlled, Tolerating Diet - Review of Systems General: Reports: No Symptoms HEENT: Reports: No Symptoms Pulmonary: Reports: No Symptoms Cardiovascular: Reports: No Symptoms Gastrointestinal: Reports: No Symptoms Genitourinary: Reports: No Symptoms Musculoskeletal: Reports: No Symptoms Skin: Reports: No Symptoms Neurological: Reports: No Symptoms Psychiatric: Reports: No Symptoms - Patient Data Vitals - Most Recent: Last Vital Signs Temp 36.7 C 03/19/20 06:25 Pulse 60 03/19/20 06:25 Resp 18 03/19/20 06:25 BP 158/73 H 03/19/20 06:25 Pulse Ox 93 L 03/19/20 06:25 Weight - Most Recent: 75.478 kg I&O - Last 24 Hours: Intake & Output 03/18/20 03/19/20 03/19/20 22:59 06:59 14:59 Intake Total 2048 800 Output Total 1700 2000 Balance 348 -1200 Lab Results Last 24 Hours: Laboratory Results - last 24 hr 03/18/20 03/18/20 03/18/20 Range/Units 10:20 10:20 11:16 WBC 8.91 (4.23-9.07) K/mm3 RBC 3.58 L (4.63-6.08) M/mm3 Hgb 11.0 L (13.7-17.5) gm/dl Hct 33.9 L (40.1-51.0) % MCV 94.7 H (79.0-92.2) fl MCH 30.7 (25.7-32.2) pg MCHC 32.4 (32.2-35.5) g/dl RDW Std Deviation 44.4 H (35.1-43.9) fL Plt Count 308 (163-337) K/mm3 MPV 9.9 (9.4-12.3) fl Neut % (Auto) 66.6 (34.0-67.9) % Lymph % (Auto) 18.3 L (21.8-53.1) % [place] % (Auto) 12.2 (5.3-12.2) % Eos % (Auto) 2.2 (0.8-7.0) Baso % (Auto) 0.4 (0.1-1.2) % Neut # (Auto) 5.92 H (1.78-5.38) K/mm3 Lymph # (Auto) 1.63 (1.32-3.57) K/mm3 [place] # (Auto) 1.09 H (0.30-0.82) K/mm3 Eos # (Auto) 0.20 (0.04-0.54) K/mm3 Baso # (Auto) 0.04 (0.01-0.08) K/mm3 Sodium 139 (136-145) mEq/L Potassium 4.3 (3.5-5.1) mEq/L Chloride 106 (98-107) mEq/L Carbon Dioxide 22 (21-32) mEq/L Anion Gap 15.3 H (5-15) BUN 18 (7-18) mg/dL Creatinine 1.8 H (0.7-1.3) mg/dL Est Cr Clr Drug Dosing 31.51 mL/min Estimated GFR (MDRD) 37 (>60) mL/min BUN/Creatinine Ratio 10.0 L (14-18) Glucose 226 H (83-115) mg/dL POC Glucose 232 H (83-110) mg/dL Calcium 9.5 (8.5-10.1) mg/dL Magnesium 1.8 (1.8-2.4) mg/dl Total Bilirubin 0.3 (0.2-1.0) mg/dL AST 9 L (15-37) U/L ALT 13 L (16-63) U/L Alkaline Phosphatase 66 (46-116) U/L C-Reactive Protein 7.8 H* (<1.0) mg/dL Total Protein 6.6 (6.4-8.2) g/dl Albumin 2.8 L (3.4-5.0) g/dl Globulin 3.8 gm/dL Albumin/Globulin Ratio 0.7 L (1-2) 03/18/20 03/18/20 03/19/20 Range/Units 17:10 21:11 06:19 WBC (4.23-9.07) K/mm3 RBC (4.63-6.08) M/mm3 Hgb (13.7-17.5) gm/dl Hct (40.1-51.0) % MCV (79.0-92.2) fl MCH (25.7-32.2) pg MCHC (32.2-35.5) g/dl RDW Std Deviation (35.1-43.9) fL Plt Count (163-337) K/mm3 MPV (9.4-12.3) fl Neut % (Auto) (34.0-67.9) % Lymph % (Auto) (21.8-53.1) % [place] % (Auto) (5.3-12.2) % Eos % (Auto) (0.8-7.0) Baso % (Auto) (0.1-1.2) % Neut # (Auto) (1.78-5.38) K/mm3 Lymph # (Auto) (1.32-3.57) K/mm3 [place] # (Auto) (0.30-0.82) K/mm3 Eos # (Auto) (0.04-0.54) K/mm3 Baso # (Auto) (0.01-0.08) K/mm3 Sodium (136-145) mEq/L Potassium (3.5-5.1) mEq/L Chloride (98-107) mEq/L Carbon Dioxide (21-32) mEq/L Anion Gap (5-15) BUN (7-18) mg/dL Creatinine (0.7-1.3) mg/dL Est Cr Clr Drug Dosing mL/min Estimated GFR (MDRD) (>60) mL/min BUN/Creatinine Ratio (14-18) Glucose (83-115) mg/dL POC Glucose 140 H 154 H 120 H (83-110) mg/dL Calcium (8.5-10.1) mg/dL Magnesium (1.8-2.4) mg/dl Total Bilirubin (0.2-1.0) mg/dL AST (15-37) U/L ALT (16-63) U/L Alkaline Phosphatase (46-116) U/L C-Reactive Protein (<1.0) mg/dL Total Protein (6.4-8.2) g/dl Albumin (3.4-5.0) g/dl Globulin gm/dL Albumin/Globulin Ratio (1-2) Med Orders - Current: Current Medications Acetaminophen (Tylenol) 650 mg PO Q4H PRN PRN Reason: Pain (Mild 1-3)/fever Last Admin: 03/16/20 07:52 Dose: 650 mg Documented by: Alogliptin Benzoate (Alogliptin) 12.5 mg PO DAILY [facility] Last Admin: 03/18/20 08:25 Dose: 12.5 mg Documented by: Amlodipine Besylate (Norvasc) 10 mg PO DAILY [facility] Last Admin: 03/18/20 08:26 Dose: 10 mg Documented by: Aspirin (Halfprin) 81 mg PO DAILY [facility] Last Admin: 03/18/20 08:30 Dose: 81 mg Documented by: Clopidogrel Bisulfate (Plavix) 75 mg PO DAILY [facility] Last Admin: 03/18/20 08:30 Dose: 75 mg Documented by: Docusate Sodium (Colace) 100 mg PO BID PRN PRN Reason: Constipation Finasteride (Proscar) 5 mg PO BEDTIME [facility] Last Admin: 03/18/20 21:24 Dose: 5 mg Documented by: Heparin Sodium (Porcine) (Heparin Sodium) 5,000 units SUBCUT Q8H [facility] Last Admin: 03/19/20 06:26 Dose: 5,000 units Documented by: Hydrochlorothiazide (Hydrochlorothiazide) 25 mg PO DAILY [facility] Last Admin: 03/18/20 08:29 Dose: 25 mg Documented by: Vancomycin HCl 1 gm/ Sodium (Chloride) 250 mls @ 250 mls/hr IV Q24H [facility] Last Admin: 03/18/20 09:49 Dose: 250 mls/hr Documented by: Insulin Glargine (Lantus) 15 unit SUBCUT BEDTIME [facility] Last Admin: 03/18/20 21:22 Dose: 15 unit Documented by: Insulin Human Lispro (Humalog) 0 unit SUBCUT TIDAC [facility]; Protocol Last Admin: 03/19/20 06:26 Dose: Not Given Documented by: Insulin Human Lispro (Humalog) 5 unit SUBCUT TIDAC [facility] Last Admin: 03/18/20 17:21 Dose: 5 units Documented by: Lisinopril (Prinivil) 20 mg PO DAILY [facility] Last Admin: 03/18/20 08:30 Dose: 20 mg Documented by: Metoprolol Succinate (Toprol Xl) 50 mg PO DAILY [facility] Last Admin: 03/18/20 08:29 Dose: 50 mg Documented by: Miscellaneous Information (Remove Patch) 1 ea TRDERM DAILY [facility] Last Admin: 03/18/20 08:31 Dose: Not Given Documented by: Nicotine (Habitrol) 21 mg TRDERM DAILY [facility] Last Admin: 03/18/20 08:31 Dose: Not Given Documented by: Ondansetron HCl (Zofran Odt) 4 mg PO Q4H PRN PRN Reason: nausea, able to take PO Oxycodone HCl (Oxycodone) 5 mg PO Q4H PRN PRN Reason: Pain (moderate 4-6) Last Admin: 03/18/20 21:24 Dose: 5 mg Documented by: Simvastatin (Zocor) 20 mg PO DAILY [facility] Last Admin: 03/18/20 08:30 Dose: 20 mg Documented by: Sodium Chloride (Saline Flush) 10 ml FLUSH ASDIRECTED PRN PRN Reason: Keep Vein Open Last Admin: 03/15/20 16:40 Dose: 10 ml Documented by: Tamsulosin HCl (Flomax) 0.4 mg PO DAILY [facility] Last Admin: 03/18/20 08:26 Dose: 0.4 mg Documented by: Trazodone HCl (Trazodone) 100 mg PO BEDTIME [facility] Last Admin: 03/18/20 21:23 Dose: 100 mg Documented by: Vancomycin HCl (Pharmacy To Dose - Vancomycin) 1 dose .XX ASDIRECTED PRN PRN Reason: RX TO DOSE VANCO Discontinued Medications Amlodipine Besylate (Norvasc) 10 mg PO DAILY [facility] Last Admin: 03/17/20 09:07 Dose: 10 mg Documented by: Clopidogrel Bisulfate (Plavix) 75 mg PO DAILY [facility] Last Admin: 03/16/20 08:55 Dose: 75 mg Documented by: Clopidogrel Bisulfate (Plavix) 75 mg PO DAILY [facility] Last Admin: 03/17/20 09:09 Dose: 75 mg Documented by: Sodium Chloride (Normal Saline) 1,000 mls @ 150 mls/hr IV NOW STA Stop: 03/15/20 22:41 Last Admin: 03/15/20 16:40 Dose: 150 mls/hr Documented by: Ceftriaxone Sodium 2 gm/ (Sodium Chloride) 100 mls @ 200 mls/hr IV ONETIME ONE Stop: 03/15/20 16:31 Last Admin: 03/15/20 16:38 Dose: 200 mls/hr Documented by: Sodium Chloride (Normal Saline) 1,000 mls @ 75 mls/hr IV ASDIRECTED [facility] Last Admin: 03/17/20 03:14 Dose: 75 mls/hr Documented by: Ceftriaxone Sodium 1 gm/ (Sodium Chloride) 100 mls @ 200 mls/hr IV Q24H [facility] Last Admin: 03/16/20 15:53 Dose: 200 mls/hr Documented by: Magnesium Sulfate (Magnesium Sulfate In Water Premix) 2 gm in 50 mls @ 25 mls/hr IV ONETIME ONE Stop: 03/16/20 19:21 Last Admin: 03/16/20 18:00 Dose: 25 mls/hr Documented by: Vancomycin HCl 1 gm/Vancomycin HCl 500 mg/ Sodium Chloride 500 mls @ 250 mls/hr IV ONETIME ONE Stop: 03/17/20 12:29 Last Admin: 03/17/20 11:29 Dose: 250 mls/hr Documented by: Dextrose/Lactated Ringer's (Dextrose 5%-Lactated Ringers) 1,000 mls @ 75 mls/hr IV ASDIRECTED [facility] Last Admin: 03/18/20 07:32 Dose: 75 mls/hr Documented by: Insulin Human Lispro (Humalog) 8 unit SUBCUT ONETIME ONE Stop: 03/15/20 16:45 Last Admin: 03/15/20 16:59 Dose: 8 unit Documented by: Insulin Human Lispro (Humalog) [address] [facility]; Protocol Last Admin: 03/16/20 18:40 Dose: Not Given Documented by: Insulin Human Lispro (Humalog) 4 unit SUBCUT ONETIME ONE Stop: 03/16/20 13:34 Last Admin: 03/16/20 14:38 Dose: Not Given Documented by: Insulin Human Lispro (Humalog) 0 unit SUBCUT [facility]; Protocol Insulin Human Regular (Humulin R) [address] [facility]; Protocol Last Admin: 03/15/20 21:29 Dose: 8 unit Documented by: Morphine Sulfate (Morphine) 2 mg IVPUSH Q2H PRN PRN Reason: Pain (severe 7-10) Stop: 03/16/20 17:28 Trazodone 100mgOwn (Med) 1 each PO BEDTIME [facility] Last Admin: 03/16/20 20:40 Dose: 1 each Documented by: Lisinopril/Hydrochlorothiazide [Lisinopril-Hctz 20- 25 MgOwn Med 1 each PO DAILY [facility] Last Admin: 03/17/20 09:09 Dose: 1 each Documented by: Metoprolol Succinate (100 MgOwn Med) 50 mg PO DAILY [facility] Last Admin: 03/17/20 09:08 Dose: 50 mg Documented by: Pravastatin 80 Mg (Ptom) 80 mg PO DAILY [facility] Tamsulosin HCl (Flomax) 0.4 mg PO PCBREAKFAST [facility] Last Admin: 03/16/20 09:01 Dose: 0.4 mg Documented by: Tamsulosin HCl (Flomax) 0.4 [facility] Last Admin: 03/17/20 09:10 Dose: 0.4 mg Documented by: Temazepam (Restoril) 7.5 mg PO BEDTIME PRN PRN Reason: Sleep Trazodone HCl (Trazodone) 50 mg PO BEDTIME PRN PRN Reason: Insomnia Last Admin: 03/15/20 23:16 Dose: 50 mg Documented by: - Exam Quality Assessment: Urine Catheter, DVT Prophylaxis. No: Supplemental Oxygen General: Alert, Oriented, Cooperative, No Acute Distress HEENT: Pupils Equal, Pupils Reactive, EOMI, Mucous Membr. Moist/Goessel (Edentulous) Neck: Supple, Trachea Midline Lungs: Clear to Auscultation, Normal Respiratory Effort Cardiovascular: Regular Rate, Regular Rhythm GI/Abdominal Exam: Normal Bowel Sounds, Soft, Non-Tender, No Distention (Male) Exam: Deferred Back Exam: Normal Inspection, Full Range of Motion Extremities: Normal Inspection, No Pedal Edema Skin: Warm, Dry, Intact Neurological: No New Focal Deficit Psy/Mental Status: Alert, Normal Affect, Normal Mood Sepsis Event Note - Evaluation Sepsis Screening Result: No Definite Risk - Focused Exam Vital Signs: Vital Signs Temp Pulse Resp BP Pulse Ox 03/19/20 06:25 36.7 C 60 18 158/73 H 93 L 03/18/20 22:31 36.6 C 45 L 18 169/60 H 96 - Problem List & Annotations (1) Obstructive nephropathy due to benign prostatic hyperplasia SNOMED Code(s): 158648258 Code(s): N40.1 - BENIGN PROSTATIC HYPERPLASIA WITH LOWER URINARY TRACT SYMP; N13.8 - OTHER OBSTRUCTIVE AND REFLUX UROPATHY Status: Acute Priority: High Current Visit: Yes (2) Hypertension SNOMED Code(s): 26548131 Code(s): I10 - ESSENTIAL (PRIMARY) HYPERTENSION Status: Chronic Priority: High Current Visit: Yes Qualifiers: Hypertension type: essential hypertension Qualified Code(s): I10 - Essential (primary) hypertension (3) Diabetes mellitus type 2 with complications, uncontrolled SNOMED Code(s): 60977778, 191216961 Code(s): E11.8 - TYPE 2 DIABETES MELLITUS WITH UNSPECIFIED COMPLICATIONS; E11.65 - TYPE 2 DIABETES MELLITUS WITH HYPERGLYCEMIA Status: Chronic Priority: Medium Current Visit: Yes (4) Urinary tract infection in male SNOMED Code(s): 03095740, 457253391 Code(s): N39.0 - URINARY TRACT INFECTION, SITE NOT SPECIFIED Status: Acute Current Visit: Yes (5) Tobacco dependence due to cigarettes SNOMED Code(s): 51740324020022940 Code(s): F17.210 - NICOTINE DEPENDENCE, CIGARETTES, UNCOMPLICATED Status: Chronic Priority: Medium Current Visit: Yes (6) Acute renal failure SNOMED Code(s): 26769875 Code(s): N17.9 - ACUTE KIDNEY FAILURE, UNSPECIFIED Status: Acute Priority: High Current Visit: Yes Qualifiers: Acute renal failure type: unspecified Qualified Code(s): N17.9 - Acute kidney failure, unspecified - Problem List Review Problem List Initiated/Reviewed/Updated: Yes - My Orders Last 24 Hours: My Active Orders 03/18/20 09:00 Clopidogrel [Plavix] 75 mg PO DAILY Metoprolol Succinate [Toprol XL] 50 mg PO DAILY Tamsulosin [Flomax] 0.4 mg PO DAILY amLODIPine [Norvasc] 10 mg PO DAILY hydroCHLOROthiazide 25 mg PO DAILY - Plan Plan:: The patient is a 74-year-old gentleman who has been admitted secondary to obstructive uropathy. The patient had Holt catheter placed in the emergency department which had resulted in 1600 cc of urine. The patient will also be treated for urinary tract infection with the use of Rocephin 1 g IV daily due to his current depressed renal function. The combination of hypertension and diabetes that is poorly controlled is likely that the patient's renal function is depressed to the point that this is chronic kidney disease stage III. Will monitor with fluids. The patient is a diabetic and his A1c is at 12.2% which indicates poorly controlled. I discussed this with the patient. The patient will also be kept on appropriate carb constant diet as well as insulin to help control his blood sugars in hospital. The patient is a smoker and he will be given nicotine patches as necessary to help to help with his addiction symptoms. PSA was not completed as this would be elevated regardless. The patient has been started on Flomax and finasteride and both of these will be continued upon discharge. The patient is also to follow-up with urology and likely will go home with a Holt catheter. The patient will also be continued on his home antihypertensive medications. His vital signs will be monitored. 03/16/2020 The patient is a 74-year-old gentleman who is doing better today. He still has a Holt catheter for his obstructive uropathy. The patient is also on Rocephin 1 g IV daily for urinary tract infection. The organism has been tentatively identified as E. coli with sensitivities pending. The patient also has had some improvement in his EGFR which is now at 22.6 mL/min. The patient's medications will continue to be renally dosed. He is also scheduled for patient educator. The patient will need to follow-up with urology upon discharge and he will likely go home with catheter due to his severe prostatomegaly. The patient has been encouraged to ambulate. He will be continued on his diabetic diet with insulin to help with his hyperglycemia. 03/17/2020 74-year-old male being treated for complicated UTI and obstructive uropathy. Patient has Streptococcus epidermidis growing in his urine which is resistant to Rocephin and sensitive to vancomycin and Bactrim. Patient will be switched over to vancomycin for 2 days and then oral Bactrim. He has had a 3-1/2 pound weight gain. Anion gap is still at 17.4 and his bicarb is 15. IV fluids currently are normal saline running at 75 mL an hour this will be switched to D5 LR. Likely discharge in 2 days assuming improvement in his acidosis with the change in antibiotics. Patient will need an outpatient referral for urology and will go home with his Holt. Continue close observation and treatment of his blood sugars. Start Lantus 15 units at bedtime and prandial fast acting insulin 5 units with each meal with sliding scale 03/18/2020 03/19/2020 The patient is a 74-year-old gentleman who is being treated for complicated UTI as well as obstructive uropathy secondary to prostatomegaly. Patient has urine culture positive for Staphylococcus epidermidis that is sensitive to vancomycin as well as Bactrim. It is also sensitive to abigail quinolones and this may be a good discharge medication for him. The patient has been doing well he will be continued on his appropriate diabetic diet as well as insulin sliding scale. The patient has been doing well with his sliding scale insulin. The patient has had fewer hyperglycemic excursions. We will continue with his current IV fluids. The patient is also to follow-up with urology on discharge. The patient has been possibly scheduled for discharge tomorrow depending upon labs and patient condition.
[2020-03-19] MEDS: Hydrochlorothiazide 25 MG Tab PO SCH (08:35)
[2020-03-19] MEDS: Lisinopril 20 MG Tab PO SCH (08:35)
[2020-03-19] MEDS: Simvastatin 20 MG Tab PO SCH (08:35)
[2020-03-19] MEDS: Aspirin 81 MG Tab.EC PO SCH (08:36)
[2020-03-19] MEDS: Tamsulosin 0.4 MG Cap.ER PO SCH (08:36)
[2020-03-19] MEDS: Metoprolol Succinate 50 MG Tab.ER PO SCH (08:36)
[2020-03-19] MEDS: Clopidogrel 75 MG Tab PO SCH (08:36)
[2020-03-19] MEDS: amLODIPine 10 MG Tab PO SCH (08:36)
[2020-03-19] MEDS: Nicotine 21 MG/24 Hr Patch TRDERM SCH (08:37)
[2020-03-19] MEDS: Vancomycin 1 GM, Vancomycin 250 MG in Sodium Chloride 0.9% 250 ML IV SCH (11:34)
[2020-03-19] MEDS: Finasteride 5 MG Tab PO SCH (21:10)
[2020-03-19] MEDS: traZODone 50 MG Tab PO SCH (21:10)
[2020-03-19] MEDS: Insulin Glarg,Human.Rec.Analog 100 Unit/ML SUBCUT SCH (21:50)
[2020-03-20] MEDS: Heparin Sodium 5,000 Units/ML Vial SUBCUT SCH (05:54)
[2020-03-20] MEDS ORDERED: Magnesium Oxide 400 MG Tab PO SCH (09:00)
[2020-03-20] MEDS: Aspirin 81 MG Tab.EC PO SCH (10:43)
[2020-03-20] MEDS: Hydrochlorothiazide 25 MG Tab PO SCH (10:44)
[2020-03-20] MEDS: Metoprolol Succinate 50 MG Tab.ER PO SCH (10:44)
[2020-03-20] MEDS: Clopidogrel 75 MG Tab PO SCH (10:44)
[2020-03-20] MEDS: Tamsulosin 0.4 MG Cap.ER PO SCH (10:44)
[2020-03-20] MEDS: Simvastatin 20 MG Tab PO SCH (10:49)
[2020-03-20] MEDS: Lisinopril 20 MG Tab PO SCH (10:49)
[2020-03-20] MEDS: amLODIPine 10 MG Tab PO SCH (10:49)
[2020-03-20 10:52] VITALS: BP 147/80
[2020-03-20] MEDS: Vancomycin 1 GM, Vancomycin 250 MG in Sodium Chloride 0.9% 250 ML IV SCH (11:07)
--- NOTE | 2020-03-20 11:24 | PCM.DCSUM1 ---
Discharge Summary - Hospital Course HPI Initial Comments: The patient was admitted for acute urinary retention and urinary tract infection. Diagnosis: Stroke: No - Discharge Data Discharge Date: 03/20/20 Discharge Disposition: Home, Self-Care 01 Condition: Good - Referral to Home Health Primary Care Physician: Smita Carmen MD - Discharge Diagnosis/Problem(s) (1) Obstructive nephropathy due to benign prostatic hyperplasia SNOMED Code(s): 140973106 ICD Code: N40.1 - BENIGN PROSTATIC HYPERPLASIA WITH LOWER URINARY TRACT SYMP; N13.8 - OTHER OBSTRUCTIVE AND REFLUX UROPATHY Status: Chronic Priority: High Current Visit: Yes (2) Hypertension SNOMED Code(s): 60804067 ICD Code: I10 - ESSENTIAL (PRIMARY) HYPERTENSION Status: Chronic Priority: High Current Visit: Yes Qualifiers: Hypertension type: essential hypertension Qualified Code(s): I10 - Essential (primary) hypertension (3) Diabetes mellitus type 2 with complications, uncontrolled SNOMED Code(s): 04317613, 090961643 ICD Code: E11.8 - TYPE 2 DIABETES MELLITUS WITH UNSPECIFIED COMPLICATIONS; E11.65 - TYPE 2 DIABETES MELLITUS WITH HYPERGLYCEMIA Status: Chronic Priority: Medium Current Visit: Yes (4) Urinary tract infection in male SNOMED Code(s): 66955853, 458739757 ICD Code: N39.0 - URINARY TRACT INFECTION, SITE NOT SPECIFIED Status: Acute Current Visit: Yes (5) Tobacco dependence due to cigarettes SNOMED Code(s): 62402473812974809 ICD Code: F17.210 - NICOTINE DEPENDENCE, CIGARETTES, UNCOMPLICATED Status: Chronic Priority: Medium Current Visit: Yes (6) Acute renal failure SNOMED Code(s): 46968109 ICD Code: N17.9 - ACUTE KIDNEY FAILURE, UNSPECIFIED Status: Acute Priority: High Current Visit: Yes Qualifiers: Acute renal failure type: unspecified Qualified Code(s): N17.9 - Acute kidney failure, unspecified - Patient Summary/Data Consults: Consultations 03/15/20 17:25 Consult to Diabetic Nurse Specialist [CONS] Routine Hospital Course: The patient is a 74-year-old gentleman who was admitted by me to acute hospitalization on March 15, 2020 for obstructive uropathy, prostatomegaly, and urinary tract infection. The patient had Holt catheter inserted in the emergency department and 1600 mL of urine were removed. The patient had urine cultures obtained which grew out staph epidermidis. This organism was resistant to ampicillin and oxacillin. The organism was sensitive to ciprofloxacin and Levaquin. The patient was also placed on vancomycin 1 g daily in order to control the infection. By day of discharge the patient had been given a prescription for Cipro 500 mg p.o. twice daily for 30 days along with Flomax 0.4 mg p.o. daily and finasteride 5 mg p.o. daily. The patient also was noted to be a heavy tobacco user and he was also given a prescription for nicotine transdermal patches. I doubt that the patient will consider using these. The patient has been afebrile throughout his course of hospitalization and has tolerated medications well. The patient also has a Holt catheter which will need to remain in place until evaluated by urology. Physical examination the patient's prostate was very large and examined and was unable to reach the upper pole of the prostate. The patient will need to be evaluated for BPH or prostate cancer as indicated by urologist. The patient should have a PSA completed once he has improved and is able to urinate on his own. The patient is also noted to be diabetic and he had been tolerating his diabetic diet. The patient also has been able to move around in his room and has been walking. The patient's hemoglobin A1c was noted to be at 12.2% and the patient has been recommended to follow closely with his primary care physician for better control of his diabetes. The patient has been noncompliant. The patient otherwise has been hemodynamically stable and he has been recommended to be discharged from acute hospitalization with the recommendations listed above. - Patient Instructions Diet: Usual Diet as Tolerated, Diabetic Diet Activity: As Tolerated - Discharge Plan *PRESCRIPTION DRUG MONITORING PROGRAM REVIEWED*: No *COPY OF PRESCRIPTION DRUG MONITORING REPORT IN PATIENT ENRIQUETA: No Prescriptions/Med Rec: Ciprofloxacin [Cipro] 500 mg PO BID 30 Days #60 ml Tamsulosin [Flomax] 0.4 mg PO DAILY #30 cap.er Nicotine [Habitrol] 21 mg TRDERM DAILY #30 patch Finasteride [Proscar] 5 mg PO DAILY #30 tablet Tobacco Cessation Medication: Prescription Given Home Medications: Home Meds Aspirin [Halfprin] 81 mg PO DAILY 07/10/16 [History] Clopidogrel [Plavix] 75 mg PO BEDTIME 07/10/16 [History] Pravastatin [Pravachol] 40 mg PO DAILY 07/10/16 [History] amLODIPine [Norvasc] 10 mg PO DAILY 07/10/16 [History] traZODone 100 mg PO BEDTIME 07/10/16 [History] Alogliptin Benzoate [Alogliptin] 25 mg PO DAILY 03/15/20 [History] Lisinopril/Hydrochlorothiazide [Lisinopril-Hctz 20-25 mg Tab] 1 each PO DAILY 03/15/20 [History] Metoprolol Succinate [Toprol XL 100mg] 50 mg PO DAILY 03/15/20 [History] Ciprofloxacin [Cipro] 500 mg PO BID 30 Days #60 ml 03/20/20 [Rx] Finasteride [Proscar] 5 mg PO DAILY #30 tablet 03/20/20 [Rx] Nicotine [Habitrol] 21 mg TRDERM DAILY #30 patch 03/20/20 [Rx] Tamsulosin [Flomax] 0.4 mg PO DAILY #30 cap.er 03/20/20 [Rx] Patient Handouts: Insulin Storage and Care, Indwelling Urinary Catheter Care, Adult, Health Risks of Smoking, Benign Prostatic Hyperplasia, Diabetes Mellitus and Sick Day Management, Urinary Tract Infection, Adult, Steps to Quit Smoking Referrals: Smita Carmen MD [Primary Care Provider] - 04/01/20 1:00 pm (Hospital follow-up appointment.) - Discharge Summary/Plan Comment DC Time >30 min.: Yes - General Info Date of Service: 03/20/20 Admission Dx/Problem (Free Text: Acute urinary retention with obstructive nephropathy Subjective Update: The patient says that he is doing much better today. He feels like he can go home safely. He has no complaints. Functional Status: Reports: Pain Controlled, Tolerating Diet - Review of Systems General: Reports: No Symptoms HEENT: Reports: No Symptoms Pulmonary: Reports: No Symptoms Cardiovascular: Reports: No Symptoms Gastrointestinal: Reports: No Symptoms Genitourinary: Reports: No Symptoms Musculoskeletal: Reports: No Symptoms Skin: Reports: No Symptoms Neurological: Reports: No Symptoms Psychiatric: Reports: No Symptoms - Patient Data Vitals - Most Recent: Last Vital Signs Temp 36.6 C 03/20/20 08:02 Pulse 73 03/20/20 10:44 Resp 16 03/20/20 08:02 BP 147/80 H 03/20/20 10:49 Pulse Ox 96 03/20/20 08:02 Weight - Most Recent: 74.888 kg I&O - Last 24 hours: Intake & Output 03/19/20 03/20/20 03/20/20 22:59 06:59 14:59 Intake Total 1750 1600 300 Output Total 675 2950 Balance 1075 -1350 300 Lab Results - Last 24 hrs: Laboratory Results - last 24 hr 03/19/20 03/19/20 03/19/20 Range/Units 10:23 16:41 21:30 WBC (4.23-9.07) K/mm3 RBC (4.63-6.08) M/mm3 Hgb (13.7-17.5) gm/dl Hct (40.1-51.0) % MCV (79.0-92.2) fl MCH (25.7-32.2) pg MCHC (32.2-35.5) g/dl RDW Std Deviation (35.1-43.9) fL Plt Count (163-337) K/mm3 MPV (9.4-12.3) fl Neut % (Auto) (34.0-67.9) % Lymph % (Auto) (21.8-53.1) % Gage % (Auto) (5.3-12.2) % Eos % (Auto) (0.8-7.0) Baso % (Auto) (0.1-1.2) % Neut # (Auto) (1.78-5.38) K/mm3 Lymph # (Auto) (1.32-3.57) K/mm3 Gage # (Auto) (0.30-0.82) K/mm3 Eos # (Auto) (0.04-0.54) K/mm3 Baso # (Auto) (0.01-0.08) K/mm3 Sodium (136-145) mEq/L Potassium (3.5-5.1) mEq/L Chloride (98-107) mEq/L Carbon Dioxide (21-32) mEq/L Anion Gap (5-15) BUN (7-18) mg/dL Creatinine (0.7-1.3) mg/dL Est Cr Clr Drug Dosing mL/min Estimated GFR (MDRD) (>60) mL/min BUN/Creatinine Ratio (14-18) Glucose (83-115) mg/dL POC Glucose 211 H 263 H 104 (83-110) mg/dL Calcium (8.5-10.1) mg/dL Magnesium (1.8-2.4) mg/dl 03/20/20 03/20/20 03/20/20 Range/Units 05:20 05:20 05:58 WBC 9.40 H (4.23-9.07) K/mm3 RBC 3.53 L (4.63-6.08) M/mm3 Hgb 11.2 L (13.7-17.5) gm/dl Hct 33.0 L (40.1-51.0) % MCV 93.5 H (79.0-92.2) fl MCH 31.7 (25.7-32.2) pg MCHC 33.9 (32.2-35.5) g/dl RDW Std Deviation 42.6 (35.1-43.9) fL Plt Count 323 (163-337) K/mm3 MPV 9.9 (9.4-12.3) fl Neut % (Auto) 61.3 (34.0-67.9) % Lymph % (Auto) 23.3 (21.8-53.1) % Gage % (Auto) 12.3 H (5.3-12.2) % Eos % (Auto) 1.9 (0.8-7.0) Baso % (Auto) 0.2 (0.1-1.2) % Neut # (Auto) 5.76 H (1.78-5.38) K/mm3 Lymph # (Auto) 2.19 (1.32-3.57) K/mm3 Gage # (Auto) 1.16 H (0.30-0.82) K/mm3 Eos # (Auto) 0.18 (0.04-0.54) K/mm3 Baso # (Auto) 0.02 (0.01-0.08) K/mm3 Sodium 139 (136-145) mEq/L Potassium 4.2 (3.5-5.1) mEq/L Chloride 106 (98-107) mEq/L Carbon Dioxide 22 (21-32) mEq/L Anion Gap 15.2 H (5-15) BUN 18 (7-18) mg/dL Creatinine 1.6 H (0.7-1.3) mg/dL Est Cr Clr Drug Dosing 35.44 mL/min Estimated GFR (MDRD) 42 (>60) mL/min BUN/Creatinine Ratio 11.3 L (14-18) Glucose 136 H (83-115) mg/dL POC Glucose 128 H (83-110) mg/dL Calcium 9.6 (8.5-10.1) mg/dL Magnesium 1.6 L (1.8-2.4) mg/dl Med Orders - Current: Current Medications Acetaminophen (Tylenol) 650 mg PO Q4H PRN PRN Reason: Pain (Mild 1-3)/fever Last Admin: 03/16/20 07:52 Dose: 650 mg Documented by: Alogliptin Benzoate (Alogliptin) 12.5 mg PO DAILY [facility] Last Admin: 03/20/20 10:44 Dose: 12.5 mg Documented by: Amlodipine Besylate (Norvasc) 10 mg PO DAILY [facility] Last Admin: 03/20/20 10:49 Dose: 10 mg Documented by: Aspirin (Halfprin) 81 mg PO DAILY [facility] Last Admin: 03/20/20 10:43 Dose: 81 mg Documented by: Clopidogrel Bisulfate (Plavix) 75 mg PO DAILY [facility] Last Admin: 03/20/20 10:44 Dose: 75 mg Documented by: Docusate Sodium (Colace) 100 mg PO BID PRN PRN Reason: Constipation Finasteride (Proscar) 5 mg PO BEDTIME [facility] Last Admin: 03/19/20 21:10 Dose: 5 mg Documented by: Heparin Sodium (Porcine) (Heparin Sodium) 5,000 units SUBCUT Q8H [facility] Last Admin: 03/20/20 05:54 Dose: 5,000 units Documented by: Hydrochlorothiazide (Hydrochlorothiazide) 25 mg PO DAILY [facility] Last Admin: 03/20/20 10:44 Dose: 25 mg Documented by: Vancomycin HCl 1 gm/Vancomycin HCl 250 mg/ Sodium Chloride 250 mls @ 166.667 mls/hr IV Q24H [facility] Last Admin: 03/20/20 11:07 Dose: 166.667 mls/hr Documented by: Insulin Glargine (Lantus) 15 unit SUBCUT BEDTIME [facility] Last Admin: 03/19/20 21:50 Dose: 15 unit Documented by: Insulin Human Lispro (Humalog) 0 unit SUBCUT TIDAC [facility]; Protocol Last Admin: 03/20/20 06:11 Dose: Not Given Documented by: Insulin Human Lispro (Humalog) 5 unit SUBCUT [facility] Last Admin: 03/20/20 07:57 Dose: 5 units Documented by: Lisinopril (Prinivil) 20 mg PO DAILY [facility] Last Admin: 03/20/20 10:49 Dose: 20 mg Documented by: Magnesium Oxide (Magnesium Oxide) 800 mg PO DAILY [facility] Last Admin: 03/20/20 10:43 Dose: 800 mg Documented by: Metoprolol Succinate (Toprol Xl) 50 mg PO DAILY [facility] Last Admin: 03/20/20 10:44 Dose: 50 mg Documented by: Miscellaneous Information (Remove Patch) 1 ea TRDERM DAILY [facility] Last Admin: 03/19/20 09:43 Dose: Not Given Documented by: Nicotine (Habitrol) 21 mg TRDERM DAILY [facility] Last Admin: 03/19/20 08:37 Dose: Not Given Documented by: Ondansetron HCl (Zofran Odt) 4 mg PO Q4H PRN PRN Reason: nausea, able to take PO Oxycodone HCl (Oxycodone) 5 mg PO Q4H PRN PRN Reason: Pain (moderate 4-6) Last Admin: 03/18/20 21:24 Dose: 5 mg Documented by: Simvastatin (Zocor) 20 mg PO DAILY [facility] Last Admin: 03/20/20 10:49 Dose: 20 mg Documented by: Sodium Chloride (Saline Flush) 10 ml FLUSH ASDIRECTED PRN PRN Reason: Keep Vein Open Last Admin: 03/15/20 16:40 Dose: 10 ml Documented by: Tamsulosin HCl (Flomax) 0.4 mg PO DAILY [facility] Last Admin: 03/20/20 10:44 Dose: 0.4 mg Documented by: Trazodone HCl (Trazodone) 100 mg PO BEDTIME [facility] Last Admin: 03/19/20 21:10 Dose: 100 mg Documented by: Vancomycin HCl (Pharmacy To Dose - Vancomycin) 1 dose .XX ASDIRECTED PRN PRN Reason: RX TO DOSE VANCO Discontinued Medications Amlodipine Besylate (Norvasc) 10 mg PO DAILY [facility] Last Admin: 03/17/20 09:07 Dose: 10 mg Documented by: Clopidogrel Bisulfate (Plavix) 75 mg PO DAILY [facility] Last Admin: 03/16/20 08:55 Dose: 75 mg Documented by: Clopidogrel Bisulfate (Plavix) 75 mg PO DAILY [facility] Last Admin: 03/17/20 09:09 Dose: 75 mg Documented by: Sodium Chloride (Normal Saline) 1,000 mls @ 150 mls/hr IV NOW STA Stop: 03/15/20 22:41 Last Admin: 03/15/20 16:40 Dose: 150 mls/hr Documented by: Ceftriaxone Sodium 2 gm/ (Sodium Chloride) 100 mls @ 200 mls/hr IV ONETIME ONE Stop: 03/15/20 16:31 Last Admin: 03/15/20 16:38 Dose: 200 mls/hr Documented by: Sodium Chloride (Normal Saline) 1,000 mls @ 75 mls/hr IV ASDIRECTED [facility] Last Admin: 03/17/20 03:14 Dose: 75 mls/hr Documented by: Ceftriaxone Sodium 1 gm/ (Sodium Chloride) 100 mls @ 200 mls/hr IV Q24H [facility] Last Admin: 03/16/20 15:53 Dose: 200 mls/hr Documented by: Magnesium Sulfate (Magnesium Sulfate In Water Premix) 2 gm in 50 mls @ 25 mls/hr IV ONETIME ONE Stop: 03/16/20 19:21 Last Admin: 03/16/20 18:00 Dose: 25 mls/hr Documented by: Vancomycin HCl 1 gm/Vancomycin HCl 500 mg/ Sodium Chloride 500 mls @ 250 mls/hr IV ONETIME ONE Stop: 03/17/20 12:29 Last Admin: 03/17/20 11:29 Dose: 250 mls/hr Documented by: Vancomycin HCl 1 gm/ Sodium (Chloride) 250 mls @ 250 mls/hr IV Q24H [facility] Last Admin: 03/18/20 09:49 Dose: 250 mls/hr Documented by: Dextrose/Lactated Ringer's (Dextrose 5%-Lactated Ringers) 1,000 mls @ 75 mls/hr IV ASDIRECTED [facility] Last Admin: 03/18/20 07:32 Dose: 75 mls/hr Documented by: Insulin Human Lispro (Humalog) 8 unit SUBCUT ONETIME ONE Stop: 03/15/20 16:45 Last Admin: 03/15/20 16:59 Dose: 8 unit Documented by: Insulin Human Lispro (Humalog) 0 unit SUBCUT [facility]; Protocol Last Admin: 03/16/20 18:40 Dose: Not Given Documented by: Insulin Human Lispro (Humalog) 4 unit SUBCUT ONETIME ONE Stop: 03/16/20 13:34 Last Admin: 03/16/20 14:38 Dose: Not Given Documented by: Insulin Human Lispro (Humalog) 0 unit SUBCUT [facility]; Protocol Insulin Human Regular (Humulin R) 0 unit SUBCUT [facility]; Protocol Last Admin: 03/15/20 21:29 Dose: 8 unit Documented by: Morphine Sulfate (Morphine) 2 mg IVPUSH Q2H PRN PRN Reason: Pain (severe 7-10) Stop: 03/16/20 17:28 Trazodone 100mgOwn (Med) 1 each PO BEDTIME [facility] Last Admin: 03/16/20 20:40 Dose: 1 each Documented by: Lisinopril/Hydrochlorothiazide [Lisinopril-Hctz 20- 25 MgOwn Med 1 each PO DAILY [facility] Last Admin: 03/17/20 09:09 Dose: 1 each Documented by: Metoprolol Succinate (100 MgOwn Med) 50 mg PO DAILY [facility] Last Admin: 03/17/20 09:08 Dose: 50 mg Documented by: Pravastatin 80 Mg (Ptom) 80 mg PO DAILY [facility] Tamsulosin HCl (Flomax) 0.4 [facility] Last Admin: 03/16/20 09:01 Dose: 0.4 mg Documented by: Tamsulosin HCl (Flomax) 0.4 [facility] Last Admin: 03/17/20 09:10 Dose: 0.4 mg Documented by: Temazepam (Restoril) 7.5 mg PO BEDTIME PRN PRN Reason: Sleep Trazodone HCl (Trazodone) 50 mg PO BEDTIME PRN PRN Reason: Insomnia Last Admin: 03/15/20 23:16 Dose: 50 mg Documented by: - Exam Quality Assessment: Reports: Urine Catheter. Denies: Supplemental Oxygen General: Reports: Alert, Oriented, Cooperative, No Acute Distress HEENT: Reports: Pupils Equal, Pupils Reactive, EOMI, Mucous Membr. Moist/[place] Neck: Reports: Supple, Trachea Midline Lungs: Reports: Clear to Auscultation, Normal Respiratory Effort Cardiovascular: Reports: Regular Rate, Regular Rhythm GI/Abdominal Exam: Normal Bowel Sounds, Soft, No Distention (Male) Exam: Deferred Rectal (Males) Exam: Deferred Back Exam: Reports: Normal Inspection, Full Range of Motion Extremities: Normal Inspection, Normal Range of Motion, No Pedal Edema Skin: Reports: Warm, Dry, Intact Neurological: Reports: No New Focal Deficit Psy/Mental Status: Reports: Alert, Normal Affect
[2020-03-20] MEDS: Nicotine 21 MG/24 Hr Patch TRDERM SCH (11:56)
[2020-03-20 13:57] VITALS: PULSE 70
== END 2020-03-20 13:40 | disposition home or self-care (01) | DRG 690 ==
LOC: JD.ED 15:01 → JD.MS 18:21 → OBSVTOIN 03-17 10:42
PROVIDERS: ADMIT Internal Medicine; ATTEND Internal Medicine
DX: N39.0 Urinary tract infection, site not specified (principal); N17.9 Acute kidney failure, unspecified; E87.2 Acidosis; N40.1 Benign prostatic hyperplasia with lower urinary tract symptoms; N13.8 Other obstructive and reflux uropathy; R33.8 Other retention of urine; I10 Essential (primary) hypertension; E11.65 Type 2 diabetes mellitus with hyperglycemia; F17.210 Nicotine dependence, cigarettes, uncomplicated; E11.22 Type 2 diabetes mellitus with diabetic chronic kidney disease; Z79.02 Long term (current) use of antithrombotics/antiplatelets; B95.7 Other staphylococcus as the cause of diseases classified elsewhere; E78.00 Pure hypercholesterolemia, unspecified; I12.9 Hypertensive chronic kidney disease with stage 1 through stage 4 chronic kidney disease, or unspecified chronic kidney disease; N18.30 Chronic kidney disease, stage 3 unspecified; Z20.828 Contact with and (suspected) exposure to other viral communicable diseases; Z91.19 Patient's noncompliance with other medical treatment and regimen; Z79.82 Long term (current) use of aspirin; Z79.899 Other long term (current) drug therapy; Z95.5 Presence of coronary angioplasty implant and graft; Z90.49 Acquired absence of other specified parts of digestive tract; Z90.89 Acquired absence of other organs; Z91.013 Allergy to seafood
CPT/HCPCS: 36415 ×3; 80053 ×3; 81001; 82947; 82962 ×6; 83036; 83735; 84145; 85025 ×3; 86140 ×2; 87086; 87088; 87186; A9270 ×22; J0696 ×2; J1644 ×5; J1815 ×3; J3475; J7030 ×4; J7050 ×2; U0002; 80048; 80202; 87106; 99284; J3370; J7040; J7121

== ENCOUNTER 2020-03-23 06:54 | Emergency (ER) | payer MEDICARE, OTHER | END 2020-03-23 08:00 | disposition left against medical advice (07) | LOC: JD.ED 06:54 | DX: Z53.21 Procedure and treatment not carried out due to patient leaving prior to being seen by health care provider (principal) ==

== ENCOUNTER 2020-03-24 21:40 | Emergency (ER) | payer MEDICARE, OTHER ==
[2020-03-24 21:57] VITALS: BP 167/60; PULSE 77
[2020-03-24] MEDS ORDERED: Lidocaine 2% Jelly 10 ML Urojet MUCMEM ONE (22:22)
--- NOTE | 2020-03-24 22:31 | EDM.PDOC ---
ED HPI GENERAL MEDICAL PROBLEM - General Chief Complaint: Genitourinary Problem Stated Complaint: CATH PROBLEM Time Seen by Provider: 03/24/20 21:54 Source of Information: Reports: Patient, RN Notes Reviewed History Limitations: Reports: No Limitations - History of Present Illness INITIAL COMMENTS - FREE TEXT/NARRATIVE: Patient is a 74-year-old male presenting to the emergency department with complaints of urinary retention due to his Holt catheter not draining. He was discharged from our facility 4 days ago with a Holt catheter and instructions to follow-up with urology. He states that it been working quite well until today when the catheter stopped draining. He does complain of pelvic pressure. Denies any fever or chills. Abdomen Pain Score (Numeric/FACES): 3 - Related Data Allergies Allergy/AdvReac Type Severity Reaction Status Date / Time shrimp Allergy Cannot Verified 03/15/20 15:17 Remember Home Meds: Home Meds Aspirin [Halfprin] 81 mg PO DAILY 07/10/16 [History] Clopidogrel [Plavix] 75 mg PO BEDTIME 07/10/16 [History] Pravastatin [Pravachol] 40 mg PO DAILY 07/10/16 [History] amLODIPine [Norvasc] 10 mg PO DAILY 07/10/16 [History] traZODone 100 mg PO BEDTIME 07/10/16 [History] Alogliptin Benzoate [Alogliptin] 25 mg PO DAILY 03/15/20 [History] Lisinopril/Hydrochlorothiazide [Lisinopril-Hctz 20-25 mg Tab] 1 each PO DAILY 03/15/20 [History] Metoprolol Succinate [Toprol XL 100mg] 50 mg PO DAILY 03/15/20 [History] Ciprofloxacin [Cipro] 500 mg PO BID 30 Days #60 ml 03/20/20 [Rx] Finasteride [Proscar] 5 mg PO DAILY #30 tablet 03/20/20 [Rx] Nicotine [Habitrol] 21 mg TRDERM DAILY #30 patch 03/20/20 [Rx] Tamsulosin [Flomax] 0.4 mg PO DAILY #30 cap.er 03/20/20 [Rx] Fluconazole [Diflucan] 200 mg PO DAILY 14 Days #14 tablet 03/27/20 [Rx] Past Medical History HEENT History: Reports: Other (See Below) Other HEENT History: eye surgery Cardiovascular History: Reports: High Cholesterol, Hypertension Respiratory History: Reports: None Gastrointestinal History: Reports: None Genitourinary History: Reports: BPH Musculoskeletal History: Reports: None Neurological History: Reports: None Psychiatric History: Reports: None Endocrine/Metabolic History: Reports: Diabetes, Type II Hematologic History: Reports: None Immunologic History: Reports: None Dermatologic History: Reports: None - Infectious Disease History Infectious Disease History: Reports: None - Past Surgical History HEENT Surgical History: Reports: Tonsillectomy GI Surgical History: Reports: Cholecystectomy Male Surgical History: Reports: None Endocrine Surgical History: Reports: None Musculoskeletal Surgical History: Reports: Other (See Below) Other Musculoskeletal Surgeries/Procedures:: Fx left elbow several years ago Social & Family History - Family History Family Medical History: Unobtainable - Caffeine Use Caffeine Use: Reports: Coffee - Living Situation & Occupation Living situation: Reports: Occupation: Employed ED ROS GENERAL - Review of Systems Review Of Systems: See Below Constitutional: Reports: No Symptoms. Denies: Fever, Chills HEENT: Reports: No Symptoms Respiratory: Reports: No Symptoms Cardiovascular: Reports: No Symptoms Endocrine: Reports: No Symptoms GI/Abdominal: Reports: No Symptoms : Reports: Urinary Retention Musculoskeletal: Reports: No Symptoms Skin: Reports: No Symptoms Neurological: Reports: No Symptoms Psychiatric: Reports: No Symptoms Hematologic/Lymphatic: Reports: No Symptoms Immunologic: Reports: No Symptoms ED EXAM, RENAL/ - Physical Exam Exam: See Below Exam Limited By: No Limitations General Appearance: Alert, WD/WN, No Apparent Distress Respiratory/Chest: No Respiratory Distress, Lungs Clear, Normal Breath Sounds, No Accessory Muscle Use, Chest Non-Tender Cardiovascular: Normal Peripheral Pulses, Regular Rate, Rhythm, No Edema, No Gallop, No JVD, No Murmur, No Rub GI/Abdominal: Normal Bowel Sounds, Soft, No Organomegaly, No Distention, No Abnormal Bruit, No Mass, Other (suprapubic fullness) (Male) Exam: Other (indwelling catheter) Neurological: Alert, Oriented, CN II-XII Intact, Normal Cognition, Normal Gait, Normal Reflexes, No Motor/Sensory Deficits Psychiatric: Normal Affect, Normal Mood Skin Exam: Warm, Dry, Intact, Normal Color, No Rash Course - Vital Signs Last Recorded V/S: Last Vital Signs Temp 98.5 F 01/04/21 21:53 Pulse 77 03/24/20 21:53 Resp 16 03/24/20 21:53 BP 167/60 H 03/24/20 21:53 Pulse Ox 100 03/24/20 21:53 - Orders/Labs/Meds Meds: Medications Discontinued Medications Generic Name Dose Route Start Last Admin Trade Name Juan Pablo PRN Reason Stop Dose Admin Lidocaine HCl 10 ml 03/24/20 22:22 03/24/20 22:37 Xylocaine 2% Jelly MUCMEM 03/24/20 22:23 10 ml ONETIME ONE Administration - Re-Assessments/Exams Free Text/Narrative Re-Assessment/Exam: Patient is a 74-year-old male presenting to the emergency department with complaints of his Holt catheter not draining. Holt catheter was irrigated and approximately 200 mils of urine was returned, however bladder scan still shows greater than 960 mils of urine in the bladder. Nursing staff will change the Holt. Patient is unsure if he is still on an antibiotic from discharge. Did call and speak with his , Margaret, and she states that he is on a 30-day course of ciprofloxacin 500 mg twice a day. He has been taking these as prescribed. I ordered urine culture to ensure that the antibiotic is working. 03/24/20 23:03 Patient has drained 1000 mils of urine from the new Holt catheter. He is feeling much better. We will discharge him home with a bedside bag as well as a leg bag. He should continue his antibiotics and follow-up with urology as scheduled. Return to ER with any problems. Discharge instructions as document 03/27/20 11:35 Urine cultures growing out Elzi albicans. I will send a prescription for fluconazole. Contacted patient he requested this to be sent to [facility]. Departure - Departure Time of Disposition: 23:03 Disposition: Home, Self-Care 01 Condition: Good Clinical Impression: Holt catheter problem Qualifiers: Encounter type: initial encounter Qualified Code(s): T83.9XXA - Unspecified complication of genitourinary prosthetic device, implant and graft, initial encounter - Discharge Information *PRESCRIPTION DRUG MONITORING PROGRAM REVIEWED*: No *COPY OF PRESCRIPTION DRUG MONITORING REPORT IN PATIENT ENRIQUETA: No Prescriptions: Fluconazole [Diflucan] 200 mg PO DAILY 14 Days #14 tablet Instructions: Indwelling Urinary Catheter Care, Adult Referrals: PCP,None [Primary Care Provider] - Forms: ED Department Discharge Additional Instructions: You were seen in the emergency department this evening for your Holt catheter not draining. The catheter was changed and is now draining well. Continue routine catheter care. Continue the antibiotics that you were prescribed on discharge from the hospital. [facility] Return to ER as needed for any problems. Sepsis Event Note (ED) - Evaluation Sepsis Screening Result: No Definite Risk
== END 2020-03-24 23:15 | disposition home or self-care (01) ==
LOC: JD.ED 21:40
DX: T83.098A Other mechanical complication of other urinary catheter, initial encounter (principal); E78.00 Pure hypercholesterolemia, unspecified; I10 Essential (primary) hypertension; E11.9 Type 2 diabetes mellitus without complications; N40.0 Benign prostatic hyperplasia without lower urinary tract symptoms; Z91.013 Allergy to seafood; Z79.82 Long term (current) use of aspirin; Z79.02 Long term (current) use of antithrombotics/antiplatelets; Z79.899 Other long term (current) drug therapy
CPT/HCPCS: 51702; 87086; 87088; 99283-25

== ENCOUNTER 2020-03-27 13:32 | Emergency (ER) | payer OTHER, MEDICARE ==
[2020-03-27] MEDS ORDERED: Lidocaine 2% Jelly 10 ML Urojet MUCMEM ONE (13:54)
[2020-03-27 13:55] VITALS: BP 151/97; PULSE 78
--- NOTE | 2020-03-27 14:03 | EDM.PDOC ---
ED HPI GENERAL MEDICAL PROBLEM - General Chief Complaint: Genitourinary Problem Stated Complaint: CATHETER ISSUE Time Seen by Provider: 03/27/20 13:34 Source of Information: Reports: Patient, RN Notes Reviewed History Limitations: Reports: No Limitations - History of Present Illness INITIAL COMMENTS - FREE TEXT/NARRATIVE: Patient is a 74-year-old male presenting to the emergency department due to his Lizarraga catheter not draining. He has had an indwelling catheter since the end of February when he presented with urinary retention as well as urinary tract infection and acute renal failure. He was seen in this emergency department 3 days ago for similar complaint. At that time, his Lizarraga catheter was changed and he states it had been draining well up until this morning. This morning he only had about 10 mils of urine out of the bladder. He continues to take Cipro which is prescribed for 1 month. I have contacted him earlier today as the culture done on his previous visit was growing out yeast. He has been started on Diflucan for this. Patient states he was seen at the [facility] yesterday due to having irritation around the urethra. They gave him a prescription for mupirocin ointment. He denies any fever or chills. States that he is scheduled to see urologist set up by the [facility] on May 01. - Related Data Allergies Allergy/AdvReac Type Severity Reaction Status Date / Time shrimp Allergy Cannot Verified 03/27/20 13:52 Remember Home Meds: Home Meds Aspirin [Halfprin] 81 mg PO DAILY 07/10/16 [History] Clopidogrel [Plavix] 75 mg PO BEDTIME 07/10/16 [History] Pravastatin [Pravachol] 40 mg PO DAILY 07/10/16 [History] amLODIPine [Norvasc] 10 mg PO DAILY 07/10/16 [History] traZODone 100 mg PO BEDTIME 07/10/16 [History] Alogliptin Benzoate [Alogliptin] 25 mg PO DAILY 03/15/20 [History] Lisinopril/Hydrochlorothiazide [Lisinopril-Hctz 20-25 mg Tab] 1 each PO DAILY 03/15/20 [History] Metoprolol Succinate [Toprol XL 100mg] 50 mg PO DAILY 03/15/20 [History] Ciprofloxacin [Cipro] 500 mg PO BID 30 Days #60 ml 03/20/20 [Rx] Finasteride [Proscar] 5 mg PO DAILY #30 tablet 03/20/20 [Rx] Nicotine [Habitrol] 21 mg TRDERM DAILY #30 patch 03/20/20 [Rx] Tamsulosin [Flomax] 0.4 mg PO DAILY #30 cap.er 03/20/20 [Rx] Fluconazole [Diflucan] 200 mg PO DAILY 14 Days #14 tablet 03/27/20 [Rx] Past Medical History HEENT History: Reports: Other (See Below) Other HEENT History: eye surgery Cardiovascular History: Reports: High Cholesterol, Hypertension Respiratory History: Reports: None Gastrointestinal History: Reports: None Genitourinary History: Reports: BPH, Retention, Urinary, UTI, Recurrent Other Genitourinary History: lizarraga catheter Musculoskeletal History: Reports: Fracture Neurological History: Reports: None Psychiatric History: Reports: None Endocrine/Metabolic History: Reports: Diabetes, Type II Hematologic History: Reports: None Immunologic History: Reports: None Dermatologic History: Reports: None - Infectious Disease History Infectious Disease History: Reports: None - Past Surgical History HEENT Surgical History: Reports: Tonsillectomy GI Surgical History: Reports: Cholecystectomy Musculoskeletal Surgical History: Reports: Other (See Below) Other Musculoskeletal Surgeries/Procedures:: Fx left elbow several years ago Social & Family History - Family History Family Medical History: No Pertinent Family History - Tobacco Use Tobacco Use Status *Q: Current Every Day Tobacco User Years of Tobacco use: 50 Packs/Tins Daily: 0.5 - Caffeine Use Caffeine Use: Reports: Coffee, Soda - Recreational Drug Use Recreational Drug Use: No - Living Situation & Occupation Living situation: Reports: Occupation: Employed ED ROS GENERAL - Review of Systems Review Of Systems: See Below Constitutional: Reports: No Symptoms. Denies: Fever, Chills, Weakness HEENT: Reports: No Symptoms Respiratory: Reports: No Symptoms Cardiovascular: Reports: No Symptoms Endocrine: Reports: No Symptoms GI/Abdominal: Reports: No Symptoms : Reports: Urinary Retention Musculoskeletal: Reports: No Symptoms Skin: Reports: No Symptoms Neurological: Reports: No Symptoms Psychiatric: Reports: No Symptoms Hematologic/Lymphatic: Reports: No Symptoms Immunologic: Reports: No Symptoms ED EXAM, RENAL/ - Physical Exam Exam: See Below General Appearance: Alert, WD/WN, No Apparent Distress Respiratory/Chest: No Respiratory Distress, Lungs Clear, Normal Breath Sounds, No Accessory Muscle Use, Chest Non-Tender Cardiovascular: Normal Peripheral Pulses, Regular Rate, Rhythm, No Edema, No Gallop, No JVD, No Murmur, No Rub (Male) Exam: Other (Indwelling catheter, mild suprapubic fullness.) Neurological: Alert, Oriented, CN II-XII Intact, Normal Cognition, Normal Gait, Normal Reflexes, No Motor/Sensory Deficits Psychiatric: Normal Affect, Normal Mood Skin Exam: Warm, Dry, Intact, Normal Color, No Rash Course - Vital Signs Last Recorded V/S: Last Vital Signs Temp 98.4 F 03/27/20 13:49 Pulse 78 03/27/20 13:49 Resp 15 03/27/20 13:49 BP 151/97 H 03/27/20 13:49 Pulse Ox 99 03/27/20 13:49 - Orders/Labs/Meds Meds: Medications Discontinued Medications Generic Name Dose Route Start Last Admin Trade Name Juan Pablo PRN Reason Stop Dose Admin Lidocaine HCl 10 ml 03/27/20 13:54 03/27/20 14:01 Xylocaine 2% Jelly MUCMEM 03/27/20 13:55 10 ml ONETIME ONE Administration - Re-Assessments/Exams Free Text/Narrative Re-Assessment/Exam: Patient is a 74-year-old male presenting to the emergency department with complaints of recurrence of his Lizarraga catheter not draining. He was seen here 3 days ago for the same complaint. At that time his catheter was drained and a urine culture was sent. Bladder scan on triage showed 876 mils of urine in the bladder. I have ordered Lizarraga catheter to be changed to a 16 Mexican instead of 14 Mexican. I ordered a lidocaine [employer]. 03/27/20 14:26 Urine is flowing well with a 16 Mexican Lizarraga catheter. 1500 mils of clear yellow urine returned. We will discharge the patient home. Discussed catheter care with him and to return if he notices that it is not draining again. A prescription for Diflucan has been previously sent to [facility]. Discharge instructions as documented. Departure - Departure Time of Disposition: 14:27 Disposition: Home, Self-Care 01 Condition: Good Clinical Impression: Lizarraga catheter problem Qualifiers: Encounter type: initial encounter Qualified Code(s): T83.9XXA - Unspecified complication of genitourinary prosthetic device, implant and graft, initial encounter - Discharge Information *PRESCRIPTION DRUG MONITORING PROGRAM REVIEWED*: No *COPY OF PRESCRIPTION DRUG MONITORING REPORT IN PATIENT ENRIQUETA: No Instructions: Indwelling Urinary Catheter Care, Adult Referrals: Smita Carmen MD [Primary Care Provider] - Forms: ED Department Discharge Additional Instructions: You were seen in the emergency department today for your Lizarraga catheter not draining. The catheter was changed for a slightly bigger tube to help prevent obstruction in the future. It is flowing well at this time. Recommend that you clean the tip of your penis as well as the catheter tubing at least 2-3 times daily. You may apply the [facility]up[facility] ointment that [facility] supervisor speech the prescription for Diflucan and take this medication as prescribed. If you have problems with the catheter not draining again or experience any other new or worsening symptoms of concern, please not hesitate to return to the emergency department. Sepsis Event Note (ED) - Evaluation Sepsis Screening Result: No Definite Risk - Focused Exam Vital Signs: Vital Signs Temp Pulse Resp BP Pulse Ox 03/27/20 13:49 98.4 F 78 15 151/97 H 99
== END 2020-03-27 15:00 | disposition home or self-care (01) ==
LOC: JD.ED 13:32
DX: T83.098A Other mechanical complication of other urinary catheter, initial encounter (principal); E78.00 Pure hypercholesterolemia, unspecified; I10 Essential (primary) hypertension; E11.9 Type 2 diabetes mellitus without complications; N40.1 Benign prostatic hyperplasia with lower urinary tract symptoms; R33.8 Other retention of urine; Z72.0 Tobacco use; Z91.013 Allergy to seafood; Z79.82 Long term (current) use of aspirin; Z79.02 Long term (current) use of antithrombotics/antiplatelets; Z79.899 Other long term (current) drug therapy
CPT/HCPCS: 51702; 99283; 99283-25

== ENCOUNTER 2020-04-11 14:58 | Emergency (ER) | payer MEDICARE, OTHER ==
[2020-04-11 15:52] VITALS: BP 140/66; PULSE 78
--- NOTE | 2020-04-11 16:06 | EDM.PDOC ---
ED HPI GENERAL MEDICAL PROBLEM - General Chief Complaint: Genitourinary Problem Stated Complaint: CATHETER ISSUES Time Seen by Provider: 04/11/20 15:07 Source of Information: Reports: Patient, RN Notes Reviewed History Limitations: Reports: No Limitations - History of Present Illness INITIAL COMMENTS - FREE TEXT/NARRATIVE: Patient is a 74-year-old male with a chronic indwelling Lizarraga presenting to the emergency department with complaints of his catheter bag leaking. Catheter is draining well. He denies any irritation at the urethral meatus. No other complaints or urinary symptoms. He is scheduled to see urology at the beginning of April and catheter is to stay in place until then. - Related Data Allergies Allergy/AdvReac Type Severity Reaction Status Date / Time shrimp Allergy Cannot Verified 04/11/20 15:50 Remember Home Meds: Home Meds Aspirin [Halfprin] 81 mg PO DAILY 07/10/16 [History] Clopidogrel [Plavix] 75 mg PO BEDTIME 07/10/16 [History] Pravastatin [Pravachol] 40 mg PO DAILY 07/10/16 [History] amLODIPine [Norvasc] 10 mg PO DAILY 07/10/16 [History] traZODone 100 mg PO BEDTIME 07/10/16 [History] Alogliptin Benzoate [Alogliptin] 25 mg PO DAILY 03/15/20 [History] Lisinopril/Hydrochlorothiazide [Lisinopril-Hctz 20-25 mg Tab] 1 each PO DAILY 03/15/20 [History] Metoprolol Succinate [Toprol XL 100mg] 50 mg PO DAILY 03/15/20 [History] Ciprofloxacin [Cipro] 500 mg PO BID 30 Days #60 ml 03/20/20 [Rx] Finasteride [Proscar] 5 mg PO DAILY #30 tablet 03/20/20 [Rx] Nicotine [Habitrol] 21 mg TRDERM DAILY #30 patch 03/20/20 [Rx] Tamsulosin [Flomax] 0.4 mg PO DAILY #30 cap.er 03/20/20 [Rx] Fluconazole [Diflucan] 200 mg PO DAILY 14 Days #14 tablet 03/27/20 [Rx] Past Medical History HEENT History: Reports: Other (See Below) Other HEENT History: eye surgery Cardiovascular History: Reports: High Cholesterol, Hypertension Respiratory History: Reports: None Gastrointestinal History: Reports: None Genitourinary History: Reports: BPH, Retention, Urinary, UTI, Recurrent Other Genitourinary History: lizarraga catheter Musculoskeletal History: Reports: Fracture Neurological History: Reports: None Psychiatric History: Reports: None Endocrine/Metabolic History: Reports: Diabetes, Type II Hematologic History: Reports: None Immunologic History: Reports: None Dermatologic History: Reports: None - Infectious Disease History Infectious Disease History: Reports: None - Past Surgical History HEENT Surgical History: Reports: Tonsillectomy GI Surgical History: Reports: Cholecystectomy Musculoskeletal Surgical History: Reports: Other (See Below) Other Musculoskeletal Surgeries/Procedures:: Fx left elbow several years ago Social & Family History - Family History Family Medical History: No Pertinent Family History - Tobacco Use Tobacco Use Status *Q: Current Every Day Tobacco User Years of Tobacco use: 60 Packs/Tins Daily: 0.5 - Caffeine Use Caffeine Use: Reports: Coffee, Soda - Recreational Drug Use Recreational Drug Use: No - Living Situation & Occupation Living situation: Reports: Occupation: Employed ED ROS GENERAL - Review of Systems Review Of Systems: Comprehensive ROS is negative, except as noted in HPI. ED EXAM, RENAL/ - Physical Exam Exam: See Below Exam Limited By: No Limitations General Appearance: Alert, WD/WN, No Apparent Distress Respiratory/Chest: No Respiratory Distress, Lungs Clear, Normal Breath Sounds, No Accessory Muscle Use, Chest Non-Tender Cardiovascular: Normal Peripheral Pulses, Regular Rate, Rhythm, No Edema, No Gallop, No JVD, No Murmur, No Rub (Male) Exam: Other (Indwelling Lizarraga catheter) Neurological: Alert, Oriented, CN II-XII Intact, Normal Cognition, Normal Gait, Normal Reflexes, No Motor/Sensory Deficits Psychiatric: Normal Affect, Normal Mood Skin Exam: Warm, Dry, Intact, Normal Color, No Rash Course - Vital Signs Last Recorded V/S: Last Vital Signs Temp 97.4 F 04/11/20 15:45 Pulse 78 04/11/20 15:45 Resp 17 04/11/20 15:45 BP 140/66 04/11/20 15:45 Pulse Ox 99 04/11/20 15:45 - Re-Assessments/Exams Free Text/Narrative Re-Assessment/Exam: Patient is a 74-year-old male presenting to the emergency department with complaints of his Lizarraga catheter bag leaking. Catheter is draining well. Catheter bag was changed by ERIK Mckeon. We will discharge patient home. Discharge instructions as documented. Departure - Departure Time of Disposition: 16:14 Disposition: Home, Self-Care 01 Condition: Good Clinical Impression: Lizarraga catheter problem Qualifiers: Encounter type: initial encounter Qualified Code(s): T83.9XXA - Unspecified complication of genitourinary prosthetic device, implant and graft, initial encounter - Discharge Information *PRESCRIPTION DRUG MONITORING PROGRAM REVIEWED*: No *COPY OF PRESCRIPTION DRUG MONITORING REPORT IN PATIENT ENRIQUETA: No Instructions: Indwelling Urinary Catheter Care, Adult Referrals: Smita Carmen MD [Primary Care Provider] - Forms: ED Department Discharge Additional Instructions: You were seen in the emergency department today for your Lizarraga catheter bag leaking. The back catheter bag was changed in the emergency department. Recommend you continue catheter care as previous. Keep your appointment as scheduled with urology. Return to ER as needed. Sepsis Event Note (ED) - Evaluation Sepsis Screening Result: No Definite Risk - Focused Exam Vital Signs: Vital Signs Temp Pulse Resp BP Pulse Ox 04/11/20 15:45 97.4 F 78 17 140/66 99
== END 2020-04-11 16:22 | disposition home or self-care (01) ==
LOC: JD.ED 14:58
DX: T83.038A Leakage of other urinary catheter, initial encounter (principal); E78.00 Pure hypercholesterolemia, unspecified; I10 Essential (primary) hypertension; N40.0 Benign prostatic hyperplasia without lower urinary tract symptoms; E11.9 Type 2 diabetes mellitus without complications; Z91.013 Allergy to seafood; Z79.82 Long term (current) use of aspirin; Z79.02 Long term (current) use of antithrombotics/antiplatelets; Z79.84 Long term (current) use of oral hypoglycemic drugs; Z79.899 Other long term (current) drug therapy; Z72.0 Tobacco use
CPT/HCPCS: 99282; 99283

== ENCOUNTER 2020-04-24 20:03 | Emergency (ER) | payer MEDICARE, OTHER ==
[2020-04-24 20:18] VITALS: BP 177/73; PULSE 83
--- NOTE | 2020-04-24 20:56 | EDM.PDOC ---
ED HPI GENERAL MEDICAL PROBLEM - General Chief Complaint: Genitourinary Problem Stated Complaint: BLOOD IN URINE Time Seen by Provider: 04/24/20 20:20 Source of Information: Reports: Patient, RN Notes Reviewed History Limitations: Reports: No Limitations - History of Present Illness INITIAL COMMENTS - FREE TEXT/NARRATIVE: Patient is a 74-year-old male presenting to the emergency department with complaints of blood tinged urine in his catheter bag. He has had a chronic indwelling Lizarraga since February due to urinary obstruction. He saw his urologist yesterday. They did a trial without the catheter, however he was not able to void. They did reinsert a catheter, and he states it was severely painful when it was not started. He has been having blood in his urine since t hat time. He is concerned as it looks like the urine is backing up into his bladder. - Related Data Allergies Allergy/AdvReac Type Severity Reaction Status Date / Time shrimp Allergy Cannot Verified 04/11/20 15:50 Remember Home Meds: Home Meds Aspirin [Halfprin] 81 mg PO DAILY 07/10/16 [History] Clopidogrel [Plavix] 75 mg PO BEDTIME 07/10/16 [History] amLODIPine [Norvasc] 10 mg PO DAILY 07/10/16 [History] traZODone 100 mg PO BEDTIME 07/10/16 [History] Lisinopril/Hydrochlorothiazide [Lisinopril-Hctz 20-25 mg Tab] 1 each PO DAILY 03/15/20 [History] Metoprolol Succinate [Toprol XL 100mg] 50 mg PO DAILY 03/15/20 [History] Finasteride [Proscar] 5 mg PO DAILY #30 tablet 03/20/20 [Rx] Tamsulosin [Flomax] 0.4 mg PO DAILY #30 cap.er 03/20/20 [Rx] Dapagliflozin Propanediol [Farxiga] 5 mg PO DAILY 04/24/20 [History] Pioglitazone HCl 45 mg PO DAILY 04/24/20 [History] Pravastatin Sodium 80 mg PO BEDTIME 04/24/20 [History] glipiZIDE [Glucotrol XL] 20 mg PO BID 04/24/20 [History] Past Medical History HEENT History: Reports: Other (See Below) Other HEENT History: eye surgery Cardiovascular History: Reports: High Cholesterol, Hypertension Respiratory History: Reports: None Gastrointestinal History: Reports: None Genitourinary History: Reports: BPH, Retention, Urinary, UTI, Recurrent Other Genitourinary History: lizarraga catheter Musculoskeletal History: Reports: Fracture Neurological History: Reports: None Psychiatric History: Reports: None Endocrine/Metabolic History: Reports: Diabetes, Type II Hematologic History: Reports: None Immunologic History: Reports: None Dermatologic History: Reports: None - Infectious Disease History Infectious Disease History: Reports: None - Past Surgical History HEENT Surgical History: Reports: Tonsillectomy GI Surgical History: Reports: Cholecystectomy Male Surgical History: Reports: None Endocrine Surgical History: Reports: None Musculoskeletal Surgical History: Reports: Other (See Below) Other Musculoskeletal Surgeries/Procedures:: Fx left elbow several years ago Social & Family History - Family History Family Medical History: No Pertinent Family History - Tobacco Use Tobacco Use Status *Q: Current Every Day Tobacco User Years of Tobacco use: 60 Packs/Tins Daily: 0.5 - Caffeine Use Caffeine Use: Reports: Coffee - Recreational Drug Use Recreational Drug Use: No - Living Situation & Occupation Living situation: Reports: Occupation: Employed ED ROS GENERAL - Review of Systems Review Of Systems: Comprehensive ROS is negative, except as noted in HPI. ED EXAM, RENAL/ - Physical Exam Exam: See Below General Appearance: Alert, WD/WN, No Apparent Distress Respiratory/Chest: No Respiratory Distress, Lungs Clear, Normal Breath Sounds, No Accessory Muscle Use, Chest Non-Tender Cardiovascular: Normal Peripheral Pulses, Regular Rate, Rhythm, No Edema, No Gallop, No JVD, No Murmur, No Rub GI/Abdominal: Normal Bowel Sounds, Soft, Non-Tender, No Organomegaly, No Distention, No Abnormal Bruit, No Mass (Male) Exam: Other (Indwelling Lizarraga catheter with blood-tinged urine.) Neurological: Alert, Oriented, CN II-XII Intact, Normal Cognition, Normal Gait, Normal Reflexes, No Motor/Sensory Deficits Psychiatric: Normal Affect, Normal Mood Skin Exam: Warm, Dry, Intact, Normal Color, No Rash Course - Vital Signs Last Recorded V/S: Last Vital Signs Temp 97.2 F 04/24/20 20:15 Pulse 83 04/24/20 20:15 Resp 19 04/24/20 20:15 BP 177/73 H 04/24/20 20:15 Pulse Ox 100 02/04/21 20:15 - Re-Assessments/Exams Free Text/Narrative Re-Assessment/Exam: Patient is a 74-year-old male presenting to the emergency department for evalu ation with regards to blood-tinged urine after having his Lizarraga catheter changed yesterday. On exam, the urine is blood-tinged but is not grossly bloody. The catheter appears to be flowing well, however he is concerned that it is not draining well. I have ordered a bladder scan to be completed. 04/24/20 20:53 Bladdder scan shows 5 mils of urine in the bladder. It is draining well. Discussed with the patient that it is somewhat normal to have blood in your urine after Lizarraga catheter insertion, especially if it was somewhat traumatic. Over the next few days, the bleeding should subside. Discussed return precautions. Discharge instructions as documented. Departure - Departure Time of Disposition: 20:53 Disposition: Home, Self-Care 01 Condition: Good Clinical Impression: Hematuria Qualifiers: Hematuria type: unspecified type Qualified Code(s): R31.9 - Hematuria, unspecified Lizarraga catheter problem Qualifiers: Encounter type: initial encounter Qualified Code(s): T83.9XXA - Unspecified complication of genitourinary prosthetic device, implant and graft, initial encounter - Discharge Information *PRESCRIPTION DRUG MONITORING PROGRAM REVIEWED*: No *COPY OF PRESCRIPTION DRUG MONITORING REPORT IN PATIENT ENRIQUETA: No Instructions: Indwelling Urinary Catheter Care, Adult Referrals: Smita Carmen MD [Primary Care Provider] - Forms: ED Department Discharge Additional Instructions: You were seen in the emergency department today for blood in your urine after a Lizarraga catheter change yesterday. As we discussed, it is quite common to have blood-tinged urine after a catheter change, especially if the reinsertion was somewhat traumatic. Bladder scan was completed in the ER and it shows that your Lizarraga is draining well and there is no urinary retention. Recommend routine catheter care. Keep your appointment with urology as currently scheduled. Return to ER as needed. Sepsis Event Note (ED) - Evaluation Sepsis Screening Result: No Definite Risk - Focused Exam Vital Signs: Vital Signs Temp Pulse Resp BP Pulse Ox 04/24/20 20:15 97.2 F 83 19 177/73 H 100
== END 2020-04-24 20:57 | disposition home or self-care (01) ==
LOC: JD.ED 20:03
DX: T83.9XXA Unspecified complication of genitourinary prosthetic device, implant and graft, initial encounter (principal); R31.9 Hematuria, unspecified; E78.00 Pure hypercholesterolemia, unspecified; I10 Essential (primary) hypertension; E11.9 Type 2 diabetes mellitus without complications; N40.0 Benign prostatic hyperplasia without lower urinary tract symptoms; Z91.013 Allergy to seafood; Z79.82 Long term (current) use of aspirin; Z79.02 Long term (current) use of antithrombotics/antiplatelets; Z79.899 Other long term (current) drug therapy; Z72.0 Tobacco use
CPT/HCPCS: 99283

== ENCOUNTER 2020-05-27 16:13 | Emergency (ER) | payer MEDICARE, OTHER ==
[2020-05-27] MEDS: Sodium Chloride 0.9% 10 ML Syringe FLUSH PRN (16:44)
--- NOTE | 2020-05-27 16:47 | EDM.PDOC ---
ED HPI GENERAL MEDICAL PROBLEM - General Chief Complaint: Fever Stated Complaint: FEVER/CHILLS Time Seen by Provider: 05/27/20 16:30 Source of Information: Reports: Patient, RN Notes Reviewed History Limitations: Reports: No Limitations - History of Present Illness INITIAL COMMENTS - FREE TEXT/NARRATIVE: Patient is a 74-year-old male who presents to the ED for his fever and chills. Patient notes for the last few days he has been "laid up" in his bed and just had generalized fatigue and not wanting to do much at all. He states he is not had much of an appetite, but has been able to drink fluids okay. Patient does have an indwelling Lizarraga catheter in place, states that he is only gotten about 200 mils of urine out of it this morning however. Patient states he does have a history of this getting plugged and having issues. Took his temperature at home and was 99.0 F, so his urged him to come to the ER for evaluation. Patient's not sure when the last time this catheter is been changed, and thinks it may have been in for too long. Patient was admitted to [facility] in [place] roughly 1 month ago for ongoing issues. He does note that he has an appointment with the [facility] in [facility] on the for further evaluation. He was told by the provider in [place], that he had an enlarged prostate, and that his bladder muscles were not working the way they used to. He has had fever/chills, no cough or shortness of breath, nausea/vomiting/diarrhea. Patient notes that he had fever and chills so much so this morning, that when he woke up this morning his bed was wet with sweat. - Related Data Allergies Allergy/AdvReac Type Severity Reaction Status Date / Time shrimp Allergy Cannot Verified 05/27/20 16:27 Remember Home Meds: Home Meds Aspirin [Halfprin] 81 mg PO DAILY 07/10/16 [History] Clopidogrel [Plavix] 75 mg PO BEDTIME 07/10/16 [History] amLODIPine [Norvasc] 10 mg PO DAILY 07/10/16 [History] traZODone 100 mg PO BEDTIME 07/10/16 [History] Lisinopril/Hydrochlorothiazide [Lisinopril-Hctz 20-25 mg Tab] 1 each PO DAILY 03/15/20 [History] Metoprolol Succinate [Toprol XL 100mg] 50 mg PO DAILY 03/15/20 [History] Finasteride [Proscar] 5 mg PO DAILY #30 tablet 03/20/20 [Rx] Tamsulosin [Flomax] 0.4 mg PO DAILY #30 cap.er 03/20/20 [Rx] Dapagliflozin Propanediol [Farxiga] 5 mg PO DAILY 04/24/20 [History] Pioglitazone HCl 45 mg PO DAILY 04/24/20 [History] Pravastatin Sodium 80 mg PO BEDTIME 04/24/20 [History] glipiZIDE [Glucotrol XL] 20 mg PO BID 04/24/20 [History] levoFLOXacin [Levaquin] 500 mg PO DAILY #10 tab 05/27/20 [Rx] Past Medical History HEENT History: Reports: Other (See Below) Other HEENT History: eye surgery Cardiovascular History: Reports: High Cholesterol, Hypertension Genitourinary History: Reports: BPH, Retention, Urinary, UTI, Recurrent Other Genitourinary History: lizarraga catheter Musculoskeletal History: Reports: Fracture Endocrine/Metabolic History: Reports: Diabetes, Type II - Past Surgical History HEENT Surgical History: Reports: Tonsillectomy GI Surgical History: Reports: Cholecystectomy Social & Family History - Family History Family Medical History: No Pertinent Family History - Tobacco Use Tobacco Use Status *Q: Current Every Day Tobacco User Years of Tobacco use: 66 Packs/Tins Daily: 0.5 - Caffeine Use Caffeine Use: Reports: Coffee - Recreational Drug Use Recreational Drug Use: No - Living Situation & Occupation Living situation: Reports: Occupation: Employed ED ROS ENT - Review of Systems Review Of Systems: Comprehensive ROS is negative, except as noted in HPI. ED EXAM, ENT - Physical Exam Exam: See Below Exam Limited By: No Limitations General Appearance: Alert, WD/WN, No Apparent Distress Respiratory/Chest: No Respiratory Distress, Lungs Clear, Normal Breath Sounds, No Accessory Muscle Use, Chest Non-Tender Cardiovascular: Normal Peripheral Pulses, Regular Rate, Rhythm, No Edema GI/Abdominal: Normal Bowel Sounds, Soft, No Distention, No Mass, Tender (slight suprapubic tenderness) Extremities: Normal Inspection, Normal Capillary Refill Neurological: Alert, Oriented, Normal Cognition, No Motor/Sensory Deficits Psychiatric: Normal Affect, Normal Mood Skin: Warm, Dry, Intact, Normal Color, No Rash Course - Vital Signs Last Recorded V/S: Last Vital Signs Temp 99 F 05/27/20 16:23 Pulse 66 05/27/20 16:23 Resp 20 05/27/20 16:23 BP 152/52 H 05/27/20 16:23 Pulse Ox 100 05/27/20 16:23 - Orders/Labs/Meds Orders: Active Orders 24 hr Category Date Time Status Bladder Scan [RC] ASDIRECTED Care 05/27/20 16:41 Active Insert Urinary Catheter [OM.PC] Stat Care 05/27/20 18:25 Ordered Peripheral IV Care [RC] . DIRECTED Care 05/27/20 16:31 Active Remove Lizarraga Catheter [Urinary Catheter Removal] [RC] Care 05/27/20 18:20 Active PER UNIT ROUTINE Urinary Catheter Assessment [RC] ASDIRECTED Care 05/27/20 18:25 Active CULTURE URINE [RM] Routine Lab 05/27/20 18:01 Ordered Levofloxacin/Dextrose 5%-Water [Levaquin in D5W 750 MG/ Med 05/27/20 18:00 Ordered 150 ML] 750 mg Premix Bag 1 bag IV ONETIME Sodium Chloride 0.9% [Normal Saline] 1,000 ml Med 05/27/20 18:02 Ordered IV ONETIME Sodium Chloride 0.9% [Saline Flush] Med 05/27/20 16:30 Active 10 ml FLUSH ASDIRECTED PRN Peripheral IV Insertion Adult [OM.PC] Routine Oth 05/27/20 16:30 Ordered Labs: Laboratory Tests 05/27/20 05/27/20 05/27/20 Range/Units 16:43 16:43 17:40 WBC 17.60 H (4.23-9.07) K/mm3 RBC 3.57 L (4.63-6.08) M/mm3 Hgb 10.9 L (13.7-17.5) gm/dl Hct 33.5 L (40.1-51.0) % MCV 93.8 H (79.0-92.2) fl MCH 30.5 (25.7-32.2) pg MCHC 32.5 (32.2-35.5) g/dl RDW Std Deviation 47.6 H (35.1-43.9) fL Plt Count 250 (163-337) K/mm3 MPV 10.4 (9.4-12.3) fl Neutrophils % (Manual) 80 H (40-60) % Band Neutrophils % 0 (0-10) % Lymphocytes % (Manual) 12 L (20-40) % Atypical Lymphs % 0 % Monocytes % (Manual) 7 (2-10) % Eosinophils % (Manual) 1 (0.8-7.0) % Basophils % (Manual) 0 L (0.2-1.2) Platelet Estimate Adequate Anisocytosis 1+ slight Microcytosis 1+ slight RBC Morph Comment Abnormal Sodium 135 L (136-145) mEq/L Potassium 4.3 (3.5-5.1) mEq/L Chloride 102 (98-107) mEq/L Carbon Dioxide 20 L (21-32) mEq/L Anion Gap 17.3 H (5-15) BUN 37 H (7-18) mg/dL Creatinine 2.2 H (0.7-1.3) mg/dL Est Cr Clr Drug Dosing 25.78 mL/min Estimated GFR (MDRD) 29 (>60) mL/min BUN/Creatinine Ratio 16.8 (14-18) Glucose 168 H (83-115) mg/dL Calcium 9.0 (8.5-10.1) mg/dL Total Bilirubin 0.5 (0.2-1.0) mg/dL AST 11 L (15-37) U/L ALT 20 (16-63) U/L Alkaline Phosphatase 61 (46-116) U/L Total Protein 7.0 (6.4-8.2) g/dl Albumin 3.0 L (3.4-5.0) g/dl Globulin 4.0 gm/dL Albumin/Globulin Ratio 0.8 L (1-2) Urine Color Yellow (Yellow) Urine Appearance Cloudy H (Clear) Urine pH 6.0 (5.0-8.0) Ur Specific [place] 1.025 (1.005-1.030) Urine Protein 3+ H (Negative) Urine Glucose (UA) Negative (Negative) Urine Ketones Negative (Negative) Urine Occult Blood 2+ H (Negative) Urine Nitrite Positive H (Negative) Urine Bilirubin Negative (Negative) Urine Urobilinogen 0.2 (0.2-1.0) Ur Leukocyte Esterase 3+ H (Negative) Urine RBC >100 H (0-5) /hpf Urine WBC >100 H (0-5) /hpf Ur Epithelial Cells Not seen (0-5) /hpf Urine Bacteria Many H (FEW) /hpf Urine Mucus Moderate H (FEW) /hpf - Re-Assessments/Exams Free Text/Narrative Re-Assessment/Exam: 05/27/20 16:46 Patient presents to the ED for his fever and other generalized feelings of being unwell, I do highly suspect that he could have a possible UTI going on, we will go ahead and troubleshoot the catheter to make sure it is indeed not plugged. We will get a urinalysis, have an IV placed get a CBC and CMP for further evaluation. We will do a bladder scan and again irrigate the catheter after urinalysis has been obtained to see if the catheter is patent and if he is in any sort of retention. If needs be we will go ahead and replace the catheter today. 05/27/20 18:07 Patient's white count did come back at 17.6 with 80% neutrophils and 0 bands. metabolic panel is impressive for a creatinine of 2.2 and a GFR low at 29, anion gap is elevated at 17.3. Urine was grossly positive for urinary tract infection with nitrite positive, 3+ leukocyte Estrace; I am aware that this was a catheterized specimen we will go ahead and pull this catheter and replace it with a new Lizarraga will give him a dose of IV Levaquin for management and then send him home with p.o. medication. Patient verbalized understanding of this care plan. 05/27/20 18:55 Patient's IV Levaquin is running, once this is done, the patient may leave the ER. Patient verbalized understanding and nursing staff was aware of this as well. Departure - Departure Time of Disposition: 18:56 Disposition: Home, Self-Care 01 Condition: Good Clinical Impression: UTI (urinary tract infection) Qualifiers: Urinary tract infection type: catheter-associated UTI Indwelling urinary catheter type: indwelling urethral catheter Encounter type: initial encounter Qualified Code(s): T83.511A - Infection and inflammatory reaction due to indwelling urethral catheter, initial encounter - Discharge Information *PRESCRIPTION DRUG MONITORING PROGRAM REVIEWED*: No *COPY OF PRESCRIPTION DRUG MONITORING REPORT IN PATIENT ENRIQUETA: No Prescriptions: levoFLOXacin [Levaquin] 500 mg PO DAILY #10 tab Instructions: Pyelonephritis, Adult, [id number] Referrals: Smita Carmen MD [Primary Care Provider] - Forms: ED Department Discharge Additional Instructions: You have been evaluated in the ED for your urinary symptoms. Your urinalysis was consistent with an acute urinary tract infection. Your urine was sent for culture, and you will be notified if you should need a change in your antibiotic. This may take up to 48 hours to result. Your catheter was changed at today's visit. You have been given a prescription for Levofloxacin 1 tablet daily for 10 days. Please note that the antibiotics can take up to 48 hours to start working. You may start the oral antibiotics on 05/28/2020. Your first dose was given in the ER through your IV today. Please increase your oral fluid intake and try to stay adequately hydrated. You may take 500mg Tylenol or 600mg Ibuprofen Q6H PRN for ongoing pain/fever. Please return to the ED if your symptoms change or worsen. Sepsis Event Note (ED) - Evaluation Sepsis Screening Result: No Definite Risk - Focused Exam Vital Signs: Vital Signs Temp Pulse Resp BP Pulse Ox 05/27/20 16:23 99 F 66 20 152/52 H 100 - My Orders Last 24 Hours: My Active Orders 05/27/20 16:30 Sodium Chloride 0.9% [Saline Flush] 10 ml FLUSH ASDIRECTED PRN Peripheral IV Insertion Adult [OM.PC] Routine 05/27/20 16:31 Peripheral IV Care [RC] . DIRECTED 05/27/20 16:41 Bladder Scan [RC] ASDIRECTED 05/27/20 18:00 Levofloxacin/Dextrose 5%-Water [Levaquin in D5W 750 MG/150 ML] 750 mg Premix Bag 1 bag IV ONETIME 05/27/20 18:01 CULTURE URINE [RM] Routine 05/27/20 18:02 Sodium Chloride 0.9% [Normal Saline] 1,000 ml IV ONETIME 05/27/20 18:20 Remove Lizarraga Catheter [Urinary Catheter Removal] [RC] PER UNIT ROUTINE 05/27/20 18:25 Insert Urinary Catheter [OM.PC] Stat Urinary Catheter Assessment [RC] ASDIRECTED - Assessment/Plan Last 24 Hours: My Active Orders 05/27/20 16:30 Sodium Chloride 0.9% [Saline Flush] 10 ml FLUSH ASDIRECTED PRN Peripheral IV Insertion Adult [OM.PC] Routine 05/27/20 16:31 Peripheral IV Care [RC] . DIRECTED 05/27/20 16:41 Bladder Scan [RC] ASDIRECTED 05/27/20 18:00 Levofloxacin/Dextrose 5%-Water [Levaquin in D5W 750 MG/150 ML] 750 mg Premix Bag 1 bag IV ONETIME 05/27/20 18:01 CULTURE URINE [RM] Routine 05/27/20 18:02 Sodium Chloride 0.9% [Normal Saline] 1,000 ml IV ONETIME 05/27/20 18:20 Remove Lizarraga Catheter [Urinary Catheter Removal] [RC] PER UNIT ROUTINE 05/27/20 18:25 Insert Urinary Catheter [OM.PC] Stat Urinary Catheter Assessment [RC] ASDIRECTED
[2020-05-27] MEDS: Lidocaine 2% Jelly 10 ML Urojet MUCMEM ONE (18:13)
[2020-05-27] MEDS: Sodium Chloride 0.9% 1,000 ML IV ONE (18:25)
[2020-05-27] MEDS: Levofloxacin/Dextrose 5%-Water 750 MG in Premix Bag 1 BAG IV ONE (18:28)
[2020-05-27 20:39] VITALS: BP 120/96; PULSE 67
== END 2020-05-27 20:20 | disposition home or self-care (01) ==
LOC: JD.ED 16:13
DX: T83.511A Infection and inflammatory reaction due to indwelling urethral catheter, initial encounter (principal); E78.00 Pure hypercholesterolemia, unspecified; I10 Essential (primary) hypertension; N40.0 Benign prostatic hyperplasia without lower urinary tract symptoms; E11.9 Type 2 diabetes mellitus without complications; Z72.0 Tobacco use; Z91.013 Allergy to seafood; Z79.82 Long term (current) use of aspirin; Z79.02 Long term (current) use of antithrombotics/antiplatelets; Z79.899 Other long term (current) drug therapy
CPT/HCPCS: 36415; 51702; 80053; 81001; 85007; 85027; 87086; 87088; 87186; 96365; 99284; J1956; J7030

== ENCOUNTER 2021-02-04 22:18 | Emergency (ER) | payer OTHER, MEDICARE ==
[2021-02-04 22:32] VITALS: BP 148/88; PULSE 76
--- NOTE | 2021-02-04 22:48 | EDM.PDOC ---
ED HPI GENERAL MEDICAL PROBLEM - General Chief Complaint: Genitourinary Problem Stated Complaint: CATH NOT DRAINING/BLOOD IN URINE Time Seen by Provider: 02/04/21 22:44 - History of Present Illness INITIAL COMMENTS - FREE TEXT/NARRATIVE: 75-year-old male presents the emergency room with Lizarraga catheter dysfunction. Patient has had problems with his Lizarraga draining today and for the last 8 hours or so he does not believe it is drained at all. Patient does have follow-up with urology tomorrow but thought he better not wait. He has not had any fevers or chills or other significant problems. - Related Data Allergies Allergy/AdvReac Type Severity Reaction Status Date / Time shrimp Allergy Cannot Verified 02/04/21 22:32 Remember Home Meds: Home Meds Aspirin [Halfprin] 81 mg PO DAILY 07/10/16 [History] Clopidogrel [Plavix] 75 mg PO BEDTIME 07/10/16 [History] amLODIPine [Norvasc] 10 mg PO DAILY 07/10/16 [History] traZODone 100 mg PO BEDTIME 07/10/16 [History] Lisinopril/Hydrochlorothiazide [Lisinopril-Hctz 20-25 mg Tab] 1 each PO DAILY 03/15/20 [History] Metoprolol Succinate [Toprol XL 100mg] 50 mg PO DAILY 03/15/20 [History] Finasteride [Proscar] 5 mg PO DAILY #30 tablet 03/20/20 [Rx] Tamsulosin [Flomax] 0.4 mg PO DAILY #30 cap.er 03/20/20 [Rx] Dapagliflozin Propanediol [Farxiga] 5 mg PO DAILY 04/24/20 [History] Pioglitazone HCl 45 mg PO DAILY 04/24/20 [History] Pravastatin Sodium 80 mg PO BEDTIME 04/24/20 [History] glipiZIDE [Glucotrol XL] 20 mg PO BID 04/24/20 [History] levoFLOXacin [Levaquin] 500 mg PO DAILY #10 tab 05/27/20 [Rx] Sulfamethoxazole/Trimethoprim [Bactrim Ds Tablet] 1 each PO BID #10 tablet 06/02/20 [Rx] Cefdinir [Omnicef] 300 mg PO BID #14 cap 02/05/21 [Rx] Past Medical History HEENT History: Reports: Other (See Below) Other HEENT History: eye surgery Cardiovascular History: Reports: High Cholesterol, Hypertension Genitourinary History: Reports: BPH, Retention, Urinary, UTI, Recurrent Other Genitourinary History: lizarraga catheter Musculoskeletal History: Reports: Fracture Endocrine/Metabolic History: Reports: Diabetes, Type II - Past Surgical History HEENT Surgical History: Reports: Tonsillectomy GI Surgical History: Reports: Cholecystectomy Male Surgical History: Reports: None Endocrine Surgical History: Reports: None Musculoskeletal Surgical History: Reports: Other (See Below) Other Musculoskeletal Surgeries/Procedures:: Fx left elbow several years ago Social & Family History - Family History Family Medical History: No Pertinent Family History - Tobacco Use Tobacco Use Status *Q: Unknown Ever Used Tobacco - Caffeine Use Caffeine Use: Reports: Coffee - Living Situation & Occupation Living situation: Reports: Occupation: Employed ED ROS GENERAL - Review of Systems Review Of Systems: See Below HEENT: Reports: No Symptoms, Vertigo Cardiovascular: Reports: No Symptoms GI/Abdominal: Reports: No Symptoms : Reports: Urinary Retention ED EXAM, GENERAL - Physical Exam Exam: See Below Exam Limited By: No Limitations General Appearance: Alert, No Apparent Distress Head: Atraumatic, Normocephalic Neck: Normal Inspection, Supple, Non-Tender, Full Range of Motion Respiratory/Chest: No Respiratory Distress, Lungs Clear, Normal Breath Sounds Cardiovascular: Regular Rate, Rhythm, No Edema, No Murmur GI/Abdominal: Normal Bowel Sounds, Soft, Non-Tender, Other (My exam was done after the Lizarraga had been irrigated and appeared to be functioning quite normally) Back Exam: Normal Inspection. No: CVA Tenderness (L), CVA Tenderness (R) Course - Vital Signs Last Recorded V/S: Last Vital Signs Temp 36.9 C 02/04/21 22:30 Pulse 76 02/04/21 22:30 Resp 16 02/04/21 22:30 BP 148/88 H 02/04/21 22:30 Pulse Ox 92 L 02/04/21 22:30 - Orders/Labs/Meds Orders: Active Orders 24 hr Category Date Time Status CULTURE URINE [MREF] Stat Lab 02/04/21 23:54 Received Labs: Laboratory Tests 02/04/21 Range/Units 23:54 Urine Color Other H (Yellow) Urine Appearance Cloudy H (Clear) Urine pH 5.5 (5.0-8.0) Ur Specific [place] 1.015 (1.005-1.030) Urine Protein 3+ H (Negative) Urine Glucose (UA) Negative (Negative) Urine Ketones Trace H (Negative) Urine Occult Blood 3+ H (Negative) Urine Nitrite Positive H (Negative) Urine Bilirubin 2+ H (Negative) Urine Urobilinogen 1.0 (0.2-1.0) Ur Leukocyte Esterase 3+ H (Negative) Urine RBC Too numerous to cnt H (0-5) /hpf Urine WBC >100 H (0-5) /hpf Ur Squamous Epith Cells Not seen (0-5) /hpf Urine Bacteria Few (FEW) /hpf Urine Mucus Few (FEW) /hpf Meds: Medications Discontinued Medications Generic Name Dose Route Start Last Admin Trade Name Freq PRN Reason Stop Dose Admin Cefdinir 300 mg 02/05/21 00:50 Cefdinir 300 Mg Cap PO 02/05/21 00:51 ONETIME ONE - Re-Assessments/Exams Free Text/Narrative Re-Assessment/Exam: 02/05/21 00:57 This is potentially infected. It is hard to differentiate from colonization at this point however infection can lead to catheter obstruction so I will go ahead and treat. Patient has follow-up with urology tomorrow. Departure - Departure Time of Disposition: 00:58 Disposition: Home, Self-Care 01 Clinical Impression: Obstructed Lizarraga catheter - Discharge Information Referrals: Smita Carmen MD [Primary Care Provider] - Forms: ED Department Discharge Additional Instructions: Return to the emergency room with any questions problems or worsening symptoms. Follow-up with urology as scheduled tomorrow. [facility] [place] supervisor [employer] these medications take 1 twice daily until all gone. Sepsis Event Note (ED) - Evaluation Sepsis Screening Result: No Definite Risk - Focused Exam Vital Signs: Vital Signs Temp Pulse Resp BP Pulse Ox 02/04/21 22:30 36.9 C 76 16 148/88 H 92 L - My Orders Last 24 Hours: My Active Orders 02/04/21 23:54 CULTURE URINE [MREF] Stat - Assessment/Plan Last 24 Hours: My Active Orders 02/04/21 23:54 CULTURE URINE [MREF] Stat
[2021-02-05] MEDS ORDERED: Cefdinir 300 MG Cap PO ONE (00:50)
== END 2021-02-05 01:13 | disposition home or self-care (01) ==
LOC: JD.ED 22:18
DX: T83.091A Other mechanical complication of indwelling urethral catheter, initial encounter (principal); E78.00 Pure hypercholesterolemia, unspecified; I10 Essential (primary) hypertension; N40.0 Benign prostatic hyperplasia without lower urinary tract symptoms; Z79.899 Other long term (current) drug therapy; Z91.018 Allergy to other foods; Z79.82 Long term (current) use of aspirin; Z79.02 Long term (current) use of antithrombotics/antiplatelets
CPT/HCPCS: 81001; 87086; 87088; 87186; 99284-25

== ENCOUNTER 2021-05-28 16:50 | Emergency (ER) | payer MEDICARE, OTHER ==
[2021-05-28 17:11] VITALS: BP 151/67; PULSE 82
== END 2021-05-28 19:20 | disposition home or self-care (01) ==
LOC: JD.ED 16:50
DX: I11.0 Hypertensive heart disease with heart failure (principal); I50.9 Heart failure, unspecified; E78.00 Pure hypercholesterolemia, unspecified; E11.9 Type 2 diabetes mellitus without complications; N40.0 Benign prostatic hyperplasia without lower urinary tract symptoms; Z91.018 Allergy to other foods; Z79.82 Long term (current) use of aspirin; Z79.02 Long term (current) use of antithrombotics/antiplatelets; Z79.899 Other long term (current) drug therapy
CPT/HCPCS: 36415; 51798; 80053; 83735; 84484; 93005; 93010; 99285; 99285-25

== ENCOUNTER 2022-03-28 14:29 | Inpatient (IN) | payer MEDICARE ==
[2022-03-28] MEDS ORDERED: Sodium Chloride 0.9% 1,000 ML IV ONE (15:19)
[2022-03-28 16:26] LABS: ESTIMATED GFR 21 mL/min (>60)
[2022-03-28] MEDS ORDERED: 50% Dextrose in Water 50 ML Syringe ONE (19:05)
[2022-03-28] MEDS ORDERED: 50% Dextrose in Water 50 ML Syringe IVPUSH PRN (19:08)
[2022-03-29] MEDS: Dextrose 5%-0.45% NaCl 1,000 ML IV SCH (13:35)
[2022-03-29] MEDS: Tamsulosin 0.4 MG Cap.ER PO SCH (14:02)
[2022-03-29] MEDS: Isosorbide Mononitrate 30 MG Tab.ER PO SCH (14:02)
[2022-03-29] MEDS ORDERED: Furosemide 40 MG/4 ML VIAL IVPUSH ONE (15:15)
[2022-03-29] MEDS: Pravastatin 20 MG Tab PO SCH (20:30)
[2022-03-30] MEDS: Dextrose 5%-0.45% NaCl 1,000 ML IV SCH (04:13)
[2022-03-30] MEDS ORDERED: Magnesium Sulfate/Water 2 GM in Premix Bag 1 BAG IV ONE ×2 (09:00→13:06)
[2022-03-30] MEDS: Tamsulosin 0.4 MG Cap.ER PO SCH (09:31)
[2022-03-30] MEDS: Isosorbide Mononitrate 30 MG Tab.ER PO SCH (09:32)
[2022-03-30] MEDS: Potassium Chloride 20 MEQ Tab.ER PO SCH ×3 (09:32→21:50)
[2022-03-30] MEDS: Aspirin 81 MG Tab.EC PO SCH (09:32)
[2022-03-30] MEDS: Losartan 25 MG Tab PO SCH (12:17)
[2022-03-30] MEDS: Insulin Glargine,Human Rec. Analog 100 Units/ML 3 ML Pen SUBCUT SCH (12:18)
[2022-03-30] MEDS ORDERED: Sodium Chloride 0.9% 1,000 ML IV SCH (13:00)
[2022-03-30] MEDS ORDERED: Loperamide 2 MG Cap PO PRN (13:01)
[2022-03-30] MEDS: Pravastatin 20 MG Tab PO SCH (21:49)
[2022-03-31] MEDS: Tamsulosin 0.4 MG Cap.ER PO SCH (08:24)
[2022-03-31] MEDS: Isosorbide Mononitrate 30 MG Tab.ER PO SCH (08:25)
[2022-03-31] MEDS: Insulin Glargine,Human Rec. Analog 100 Units/ML 3 ML Pen SUBCUT SCH (08:25)
[2022-03-31] MEDS: Aspirin 81 MG Tab.EC PO SCH (08:25)
[2022-03-31] MEDS: Losartan 25 MG Tab PO SCH (08:25)
[2022-03-31] MEDS: Sodium Chloride 0.9% 1,000 ML IV SCH ×2 (08:26→17:44)
[2022-03-31] MEDS ORDERED: Diatrizoate Meglumine/Diatrizoate Sodium 37% 120 ML Bottle PO ONE (09:54)
[2022-03-31] MEDS: Pravastatin 20 MG Tab PO SCH (21:32)
[2022-03-31] MEDS: Saccharomyces Boulardii (Probiotic) 250 MG Cap PO SCH (21:35)
[2022-04-01] MEDS: Tamsulosin 0.4 MG Cap.ER PO SCH (08:45)
[2022-04-01] MEDS: Isosorbide Mononitrate 30 MG Tab.ER PO SCH (08:45)
[2022-04-01] MEDS: Saccharomyces Boulardii (Probiotic) 250 MG Cap PO SCH ×3 (08:45→20:33)
[2022-04-01] MEDS: Losartan 25 MG Tab PO SCH (08:45)
[2022-04-01] MEDS: Insulin Glargine,Human Rec. Analog 100 Units/ML 3 ML Pen SUBCUT SCH (08:46)
[2022-04-01] MEDS: Aspirin 81 MG Tab.EC PO SCH (08:46)
[2022-04-01] MEDS ORDERED: Lidocaine 2% 11 ML Jelly Filled Syringe ONE (17:44)
[2022-04-01] MEDS: Pravastatin 20 MG Tab PO SCH (20:33)
[2022-04-02] MEDS: Aspirin 81 MG Tab.EC PO SCH (08:55)
[2022-04-02] MEDS: Isosorbide Mononitrate 30 MG Tab.ER PO SCH (08:55)
[2022-04-02] MEDS: Saccharomyces Boulardii (Probiotic) 250 MG Cap PO SCH ×3 (08:58→20:30)
[2022-04-02] MEDS: Losartan 25 MG Tab PO SCH (08:59)
[2022-04-02] MEDS: Tamsulosin 0.4 MG Cap.ER PO SCH (08:59)
[2022-04-02] MEDS: Insulin Glargine,Human Rec. Analog 100 Units/ML 3 ML Pen SUBCUT SCH (10:33)
[2022-04-02] MEDS: Cholestyramine/Sucrose Powder 4 GM Packet PO PRN ×2 (12:50→20:28)
[2022-04-02] MEDS: Pravastatin 20 MG Tab PO SCH (20:29)
[2022-04-03] MEDS: Cholestyramine/Sucrose Powder 4 GM Packet PO PRN (03:26)
[2022-04-03] MEDS: Insulin Glargine,Human Rec. Analog 100 Units/ML 3 ML Pen SUBCUT SCH (08:12)
[2022-04-03] MEDS: Isosorbide Mononitrate 30 MG Tab.ER PO SCH (08:14)
[2022-04-03] MEDS: Aspirin 81 MG Tab.EC PO SCH (08:15)
[2022-04-03] MEDS: Losartan 25 MG Tab PO SCH (08:15)
[2022-04-03] MEDS: Tamsulosin 0.4 MG Cap.ER PO SCH (08:15)
[2022-04-03] MEDS: Saccharomyces Boulardii (Probiotic) 250 MG Cap PO SCH ×3 (08:16→20:57)
[2022-04-03] MEDS: Pravastatin 20 MG Tab PO SCH (20:57)
[2022-04-04] MEDS: Insulin Glargine,Human Rec. Analog 100 Units/ML 3 ML Pen SUBCUT SCH (09:22)
[2022-04-04] MEDS: Losartan 25 MG Tab PO SCH (09:23)
[2022-04-04] MEDS: Aspirin 81 MG Tab.EC PO SCH (09:26)
[2022-04-04] MEDS: Saccharomyces Boulardii (Probiotic) 250 MG Cap PO SCH ×3 (09:27→21:29)
[2022-04-04] MEDS: Fluconazole 100 MG Tab PO SCH (09:28)
[2022-04-04] MEDS: Tamsulosin 0.4 MG Cap.ER PO SCH (09:28)
[2022-04-04] MEDS: Isosorbide Mononitrate 30 MG Tab.ER PO SCH (10:28)
[2022-04-04] MEDS: Cholestyramine/Sucrose Powder 4 GM Packet PO PRN (10:32)
[2022-04-04] MEDS: Pravastatin 20 MG Tab PO SCH (21:29)
[2022-04-05] MEDS: Saccharomyces Boulardii (Probiotic) 250 MG Cap PO SCH (08:32)
[2022-04-05] MEDS: Tamsulosin 0.4 MG Cap.ER PO SCH (08:32)
[2022-04-05] MEDS: Fluconazole 100 MG Tab PO SCH (08:33)
[2022-04-05] MEDS: Aspirin 81 MG Tab.EC PO SCH (08:33)
[2022-04-05] MEDS: Insulin Glargine,Human Rec. Analog 100 Units/ML 3 ML Pen SUBCUT SCH (09:53)
[2022-04-05] MEDS: Isosorbide Mononitrate 30 MG Tab.ER PO SCH (09:55)
[2022-04-05] MEDS: Losartan 25 MG Tab PO SCH (09:55)
[2022-04-05 10:56] VITALS: BP 136/59; PULSE 98
[2022-04-05] MEDS ORDERED: Potassium Chloride 20 MEQ Tab.ER PO STA (13:17)
== END 2022-04-05 14:15 | DRG 637 ==
LOC: JD.ED 14:29 → OBSVTOIN 19:15 → JD.MS 19:15 → INTOOBSV 19:15
PROVIDERS: ADMIT Pediatrics; ATTEND Pediatrics
DX: R19.7 Diarrhea, unspecified (principal); E11.649 Type 2 diabetes mellitus with hypoglycemia without coma; I21.3 ST elevation (STEMI) myocardial infarction of unspecified site; J96.21 Acute and chronic respiratory failure with hypoxia; I13.0 Hypertensive heart and chronic kidney disease with heart failure and stage 1 through stage 4 chronic kidney disease, or unspecified chronic kidney disease; N18.9 Chronic kidney disease, unspecified; E86.0 Dehydration; N18.4 Chronic kidney disease, stage 4 (severe); E11.22 Type 2 diabetes mellitus with diabetic chronic kidney disease; D63.1 Anemia in chronic kidney disease; E78.00 Pure hypercholesterolemia, unspecified; N40.1 Benign prostatic hyperplasia with lower urinary tract symptoms; R33.8 Other retention of urine; F31.9 Bipolar disorder, unspecified; E55.9 Vitamin D deficiency, unspecified; Z96.0 Presence of urogenital implants; F03.90 Unspecified dementia, unspecified severity, without behavioral disturbance, psychotic disturbance, mood disturbance, and anxiety; J44.9 Chronic obstructive pulmonary disease, unspecified; M19.90 Unspecified osteoarthritis, unspecified site; N31.9 Neuromuscular dysfunction of bladder, unspecified; R63.0 Anorexia; Z79.82 Long term (current) use of aspirin; Z79.899 Other long term (current) drug therapy; Z87.891 Personal history of nicotine dependence; Z86.73 Personal history of transient ischemic attack (TIA), and cerebral infarction without residual deficits; Z91.013 Allergy to seafood; Z85.828 Personal history of other malignant neoplasm of skin; Z90.49 Acquired absence of other specified parts of digestive tract
CPT/HCPCS: 36415; 74176; 74176-26; 80053; 81001; 81003; 82272; 82607; 82746; 82947; 83540; 83605; 83690; 83735; 84484; 85025; 85045; 86140; 87045; 87046; 87086; 87338; 87493; 87899; 93005; 96361; 96374; 97110-GO; 97116-GP; 97162-GP; 97166-GO; 97530-GO; 97530-GP; 99232; 99233; 99284; 99285; A9270-GY; G0378; J1815-GY; J1940; J3475; J3490; J7030; J7042; Q9963

== ENCOUNTER 2022-05-02 16:46 | Emergency (ER) | payer MEDICARE ==
[2022-05-02 17:07] VITALS: BP 162/72; PULSE 80
== END 2022-05-02 17:11 | disposition home or self-care (01) ==
LOC: JD.ED 16:46
DX: T83.9XXA Unspecified complication of genitourinary prosthetic device, implant and graft, initial encounter (principal); J44.9 Chronic obstructive pulmonary disease, unspecified; E11.21 Type 2 diabetes mellitus with diabetic nephropathy; I11.0 Hypertensive heart disease with heart failure; I50.9 Heart failure, unspecified; I25.2 Old myocardial infarction; E66.9 Obesity, unspecified; Z79.899 Other long term (current) drug therapy; Z91.013 Allergy to seafood
CPT/HCPCS: 99283